=== PATIENT | male | born 1955 | race Caucasian/White ===

== ENCOUNTER 2019-03-24 06:11 | Emergency (ER) | payer MEDICARE, BC ==
[2019-03-24] MEDS ORDERED: Ondansetron 4 MG/2 ML SDV IVPUSH ONE (06:53)
[2019-03-24] MEDS ORDERED: Tamsulosin 0.4 MG Cap.ER PO STA (06:53)
[2019-03-24] MEDS ORDERED: HYDROmorphone 1 MG/ML Syringe IVPUSH STA (06:53)
[2019-03-24] MEDS ORDERED: Ketorolac 30 MG/ML SDV IVPUSH STA (06:54)
[2019-03-24] MEDS ORDERED: Sodium Chloride 0.9% 1,000 ML IV SCH (07:00)
--- NOTE | 2019-03-24 07:06 | EDM.PDOC ---
<Vik Jordan - Last Filed: 03/24/19 07:21> ED HPI GENERAL MEDICAL PROBLEM - General Chief Complaint: Back Pain or Injury Stated Complaint: BACK PAIN Time Seen by Provider: 03/24/19 06:43 Source of Information: Reports: Patient, RN Notes Reviewed History Limitations: Reports: No Limitations - History of Present Illness INITIAL COMMENTS - FREE TEXT/NARRATIVE: The patient states that he developed left flank pain last night, that has become more severe and persistent. He describes it as sharp in character. It waxes and wanes. He has not identified any modifiers. It does not radiate anywhere. No prior similar symptoms. The patient denies any urinary symptoms or gross hematuria. No recent fever, nausea, vomiting, constipation, or diarrhea. The patient's PCP is AVA Yepez. His Installation Superintendent is Dr. Lissett Qiu. His ENT is Dr. Deandre Oquendo. His Orthopedic Surgeon is Dr. Vargas Harrison. Left Lower Back Pain Score (Numeric/FACES): 10 - Related Data Allergies Allergy/AdvReac Type Severity Reaction Status Date / Time levofloxacin [From Levaquin] Allergy Other Verified 03/24/19 06:18 sulfamethoxazole Allergy Blisters Verified 03/24/19 06:18 [From Bactrim] trimethoprim [From Bactrim] Allergy Blisters Verified 03/24/19 06:18 Home Meds: Home Meds Albuterol Sulfate [Albuterol Sulfate Hfa] 2 puff INH DAILY PRN 03/24/19 [History ] Allopurinol [Zyloprim] 300 mg PO DAILY 03/24/19 [History] Cyclobenzaprine [Flexeril] 10 mg PO TID PRN #14 tab 03/24/19 [Rx] Fluticasone/Vilanterol [Breo Ellipta 200-25 MCG Inhalation Kit] 1 puff INH DAILY 03/24/19 [History] Furosemide 40 mg PO DAILY 03/24/19 [History] Losartan [Cozaar] 100 mg PO DAILY 03/24/19 [History] Metoprolol Tartrate 50 mg PO BID 03/24/19 [History] Montelukast [Singulair] 10 mg PO DAILY 03/24/19 [History] NIFEdipine [Nifedipine ER] 30 mg PO DAILY 03/24/19 [History] Rosuvastatin [Crestor] 10 mg PO DAILY 03/24/19 [History] predniSONE 20 mg PO DAILY PRN 03/24/19 [History] Past Medical History Cardiovascular History: Reports: High Cholesterol, Hypertension Respiratory History: Reports: Asthma Musculoskeletal History: Reports: Gout (suspected), Osteoarthritis Endocrine/Metabolic History: Reports: Obesity/BMI 30+ Oncologic (Cancer) History: Reports: Prostate (s/p radical prostatectomy, RTx) - Past Surgical History HEENT Surgical History: Reports: Naso-Sinus Surgery (x 3) GI Surgical History: Reports: Hernia, Inguinal (right) Male Surgical History: Reports: Prostatectomy Musculoskeletal Surgical History: Reports: Knee Replacement (bilateral) Social & Family History - Tobacco Use Smoking Status *Q: Former Smoker Years of Tobacco use: 20 Packs/Tins Daily: 0.5 Month/Year Tobacco Last Used: Quit 1988 - Caffeine Use Caffeine Use: Reports: Coffee - Alcohol Use Alcohol Use History: Yes Days Per Week of Alcohol Use: 7 Number of Drinks Per Day: 2 Total Drinks Per Week: 14 Alcohol Use Frequency: Daily - Recreational Drug Use Recreational Drug Use: No - Living Situation & Occupation Living situation: Reports: , with Spouse, with Family (Son) 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 ED EXAM, RENAL/ - Physical Exam Exam: See Below Exam Limited By: No Limitations General Appearance: Alert, WD/WN, Mild Distress (Intermittent severe pain) Eye Exam: Bilateral Eye: EOMI, Normal Inspection Ears: Normal External Exam, Hearing Grossly Normal Nose: Normal Inspection Throat/Mouth: Normal Inspection, Normal Lips, Normal Voice, No Airway Compromise Head: Atraumatic, Normocephalic Neck: Normal Inspection, Full Range of Motion Respiratory/Chest: No Respiratory Distress, Lungs Clear, Normal Breath Sounds, No Accessory Muscle Use Cardiovascular: Normal Peripheral Pulses, Regular Rate, Rhythm, No Gallop, No JVD, No Murmur, No Rub GI/Abdominal: Normal Bowel Sounds, Soft, Non-Tender (including the left abdomen) , No Organomegaly, No Distention, No Abnormal Bruit, No Mass, Other (Obese) (Male) Exam: Deferred Rectal (Males) Exam: Deferred Back Exam: Normal Inspection, Full Range of Motion, CVA Tenderness (L) ( reproduces pain). No: CVA Tenderness (R) Extremities: Normal Inspection, Normal Range of Motion, No Pedal Edema, Normal Capillary Refill Neurological: Alert, Oriented, Normal Cognition, No Motor/Sensory Deficits Psychiatric: Normal Affect Skin Exam: Warm, Dry, Intact, Normal Color, No Rash Course - Vital Signs Last Recorded V/S: Last Vital Signs Temp 96.8 F 03/24/19 06:24 Pulse 89 03/24/19 06:24 Resp 20 03/24/19 06:24 BP 148/85 H 03/24/19 06:24 Pulse Ox 98 03/24/19 06:24 - Orders/Labs/Meds Orders: Active Orders 24 hr Category Date Time Status Strain Urine [RC] ASDIRECTED Care 03/24/19 06:53 Active Sodium Chloride 0.9% [Normal Saline] 1,000 ml Med 03/24/19 07:00 Active IV ASDIRECTED Medication Orders Sodium Chloride (Normal Saline) 1,000 mls @ 150 mls/hr IV ASDIRECTED LIZETT Last Admin: 03/24/19 07:37 Dose: 150 mls/hr Labs: Laboratory Tests 03/24/19 Range/Units 07:05 Urine Color Yellow (Yellow) Urine Appearance Clear (Clear) Urine pH 7.0 (5.0-8.0) Ur Specific [place] 1.015 (1.005-1.030) Urine Protein Negative (Negative) Urine Glucose (UA) Negative (Negative) Urine Ketones Negative (Negative) Urine Occult Blood Negative (Negative) Urine Nitrite Negative (Negative) Urine Bilirubin Negative (Negative) Urine Urobilinogen 0.2 (0.2-1.0) Ur Leukocyte Esterase Negative (Negative) Urine RBC Not seen (0-5) /hpf Urine WBC 0-5 (0-5) /hpf Ur Squamous Epith Cells 0-5 (0-5) /hpf Urine Bacteria Rare (FEW) /hpf Urine Mucus Not seen (FEW) /hpf Meds: Medications Generic Name Dose Route Start Last Admin Trade Name Freq PRN Reason Stop Dose Admin Sodium Chloride 1,000 mls @ 150 mls/hr 03/24/19 07:00 03/24/19 07:37 Normal Saline IV 150 mls/hr ASDIRECTED LIZETT Administration Discontinued Medications Generic Name Dose Route Start Last Admin Trade Name Freq PRN Reason Stop Dose Admin Hydromorphone HCl 0.5 mg 03/24/19 06:53 03/24/19 07:32 Dilaudid IVPUSH 03/24/19 06:54 0.5 mg ONETIME STA Administration Ketorolac Tromethamine 30 mg 03/24/19 06:54 03/24/19 07:28 Toradol IVPUSH 03/24/19 06:55 Not Given ONETIME STA Ketorolac Tromethamine 30 mg 03/24/19 07:27 03/24/19 07:35 Toradol IVPUSH 03/24/19 07:28 30 mg ONETIME STA Administration Ondansetron HCl 4 mg 03/24/19 06:53 03/24/19 07:30 Zofran IVPUSH 03/24/19 06:54 4 mg ONETIME ONE Administration Tamsulosin HCl 0.4 mg 03/24/19 06:53 03/24/19 07:40 Flomax PO 03/24/19 06:54 0.4 mg ONETIME STA Administration - Re-Assessments/Exams Free Text/Narrative Re-Assessment/Exam: 03/24/19 06:58 By both history and physical examination, the patient is suffering from a left ureterolith. I have ordered a urinalysis and a CT scan of the abdomen and pelvis without contrast. All future urine will be strained. In the meantime, the patient will receive IV Dilaudid, IV Toradol, IV Zofran, oral Flomax, and IV fluid. 03/24/19 07:[address] Jose Serra, and care of the patient turned over to him at this time, for change of shift. Departure - Departure Disposition: Home, Self-Care 01 Clinical Impression: Back pain Qualifiers: Back pain location: low back pain Chronicity: acute Back pain laterality: left Sciatica presence: without sciatica Qualified Code(s): M54.5 - Low back pain - Discharge Information *PRESCRIPTION DRUG MONITORING PROGRAM REVIEWED*: Not Applicable *COPY OF PRESCRIPTION DRUG MONITORING REPORT IN PATIENT [place]: Not Applicable Prescriptions: Cyclobenzaprine [Flexeril] 10 mg PO TID PRN #14 tab PRN Reason: Pain Referrals: Hermila Cyr PA-C [Primary Care Provider] - Lissett Qiu MD [Ordering Only Provider] - Deandre Oquendo MD [Ordering Only Provider] - Vargas Harrison MD [Ordering Only Provider] - Forms: ED Department Discharge Additional Instructions: Rest back, no heavy lifting for now, alternate ice and heat as needed, you may alternate Tylenol and Advil or ibuprofen as needed, if you do start having further muscle type spasm pains you can take Flexeril 10 mg every 8-12 hours if needed. With your regular medical provider if having further difficulties that do not resolve, return to ED as needed if symptoms worsening in any way. <Sourav Serra - Last Filed: 03/24/19 09:30> Course - Re-Assessments/Exams Free Text/Narrative Re-Assessment/Exam: 03/24/19 09:27 Have assumed care from Dr. Jordan at change of shift. I agree with his history and exam as documented. Have radiology report now back on the renal focused CT which does not show any sign of obstructing stone or other acute pathology at this time. He is resting comfortably pain-free at this time. Urine was clear. Discharge instructions as documented. Departure - Departure Time of Disposition: 09:28 Condition: Fair
[2019-03-24] MEDS ORDERED: Ketorolac 60 MG/2 ML SDV IVPUSH STA (07:27)
--- NOTE | 2019-03-24 08:44 | CT ---
CT abdomen and pelvis Technique: Multiple axial sections were obtained from above the dome of the diaphragm inferiorly through the pubic symphysis. Intravenous and oral contrast not utilized. Study has been performed as a ureteral stone protocol. Findings: Nonobstructing calculi are noted within both kidneys. Two cystic lesions are seen within the right kidney. Largest cyst measures approximately 3.1 cm. No ureteral dilatation or ureteral stone is seen. Visualized lung bases show nothing acute. Liver shows diffuse fatty infiltration and is slightly generous in size. No focal abnormality is appreciated within the liver. Spleen appears normal in size. Adrenal glands show no nodule. Gallbladder contains no calcified gallstones. Pancreas is within normal limits. Aorta shows atherosclerotic calcification which continues into the iliac vessels. No aneurysm is seen. No retroperitoneal adenopathy or mesenteric abnormalities are seen. No pelvic mass or adenopathy is seen. Multiple surgical clips or radiation implant seeds are noted within the lower pelvis. Diverticuli are seen within the descending and sigmoid colon without inflammatory change of diverticulitis. No free fluid is seen. Appendix not visualized with certainty. Bone window settings were reviewed showing diffuse degenerative disc space narrowing and endplate spurring throughout the spine. Impression: 1. Fatty infiltration within the liver. Liver is also mildly prominent in size. 2. Nonobstructing renal calculi. Two cysts within the right kidney. 3. No ureteral dilatation or ureteral stone is seen. 4. Other incidental findings as noted above. Nothing acute is identified on noncontrast CT study of the abdomen and pelvis. Diagnostic code #3
== END 2019-03-24 09:50 | disposition home or self-care (01) ==
LOC: JD.ED 06:11
DX: M54.5 Low back pain (principal); I10 Essential (primary) hypertension; J45.909 Unspecified asthma, uncomplicated; E66.9 Obesity, unspecified; E78.00 Pure hypercholesterolemia, unspecified; Z88.1 Allergy status to other antibiotic agents; Z88.2 Allergy status to sulfonamides; Z79.899 Other long term (current) drug therapy; Z90.79 Acquired absence of other genital organ(s); Z96.653 Presence of artificial knee joint, bilateral; Z87.891 Personal history of nicotine dependence; Z68.39 Body mass index [BMI] 39.0-39.9, adult
CPT/HCPCS: 74176; 81001; 96361; 96374; 96375; 99284; A9270; J1170; J1885; J2405; J7040

== ENCOUNTER 2020-05-27 21:22 | Inpatient (IN) | payer MEDICARE, BC ==
[2020-05-27] MEDS ORDERED: Sodium Chloride 0.9% 10 ML Syringe FLUSH PRN (22:01)
[2020-05-27] MEDS ORDERED: Sodium Chloride 0.9% 1,000 ML IV SCH (22:15)
[2020-05-27] MEDS ORDERED: Lactated Ringers 1,000 ML IV ONE (22:32)
--- NOTE | 2020-05-27 22:54 | EDM.PDOC ---
<Dario Suarez - Last Filed: 05/28/20 00:19> ED HPI GENERAL MEDICAL PROBLEM - General Chief Complaint: Abdominal Pain Stated Complaint: RECTAL BLEEDING Time Seen by Provider: 05/27/20 21:39 - Related Data Allergies Allergy/AdvReac Type Severity Reaction Status Date / Time levofloxacin [From Levaquin] Allergy Other Verified 03/24/19 06:18 sulfamethoxazole Allergy Blisters Verified 03/24/19 06:18 [From Bactrim] trimethoprim [From Bactrim] Allergy Blisters Verified 03/24/19 06:18 Home Meds: Home Meds Albuterol Sulfate [Albuterol Sulfate Hfa] 2 puff INH DAILY PRN 03/24/19 [History] Fluticasone/Vilanterol [Breo Ellipta 200-25 MCG Inhalation Kit] 1 puff INH DAILY 03/24/19 [History] Furosemide 40 mg PO 1600 03/24/19 [History] Losartan [Cozaar] 100 mg PO DAILY 03/24/19 [History] Metoprolol Tartrate 50 mg PO BID 03/24/19 [History] Montelukast [Singulair] 10 mg PO BEDTIME 03/24/19 [History] NIFEdipine [Nifedipine ER] 30 mg PO BEDTIME 03/24/19 [History] Rosuvastatin [Crestor] 10 mg PO BEDTIME 03/24/19 [History] allopurinoL [Zyloprim] 300 mg PO DAILY 03/24/19 [History] Course - Re-Assessments/Exams Free Text/Narrative Re-Assessment/Exam: 05/28/20 00:17 Taking over for Jacque. The patient got up to go to use the commode on his own. He was advised not to do that and he passed out and hit his head. He had an abrasion to his forehead. His blood pressure was very low at 58. A second line was started and 2L of fluid was given. The patient's blood pressure is now 105. I ordered labs, CT of his head and abdomen and pelvis. I also typed and screened for 2 units. His Hgb was 12.3. His PT and PTT were negative. His CMP looks good. The CT of his head shows no acute intracranial abnormality. Changes of chronic paranasal sinus disease with postoperative changes within the paranasal sinuses. Right maxillary sinus and frontal sinus is nearly completely opacified. This is most likely chronic, however, acute on chronic paranasal sinus disease is a consideration. The CT of his abdomen and pelvis shows enlarged fatty liver. Nephrolithiasis without hydronephrosis or urinary tract obstruction. Several diverticula are present within the descending and sigmoid colon. There is minimal fat stranding in the region of the junction of the descending and sigmoid colon. In the appropriate clinical setting, very mild diverticulitis is possible. Status post prostatectomy with shotty retroperitoneal lymph noses noted. They do not meet pathologic size criteria, however attention on follow up suggested. They do appear to be slightly more prominent than the previous examination. I ordered flagyl and rocephin for the possible diverticulitis. I feel he needs to be admitted. I called Dr Alonzo and she agreed to the admission. She felt the diverticulitis was less likely given the CT results. I will write bridging orders. Departure - Departure Time of Disposition: 00:30 Disposition: Admitted As Inpatient 64 Condition: Fair Clinical Impression: Lower GI bleed - Discharge Information <Jacque Thorpe - Last Filed: 05/28/20 11:38> ED HPI GENERAL MEDICAL PROBLEM - General Source of Information: Reports: Patient History Limitations: Reports: No Limitations - History of Present Illness INITIAL COMMENTS - FREE TEXT/NARRATIVE: Patient is a 65-year-old male presenting to the emergency department with complaints of numerous episodes of samuel red bloody stool. Symptoms started around 7:30 PM this evening. Denies any abdominal pain, nausea, or vomiting associated with this. He estimates that he has had probably about 8 episodes of samuel red blood stool. He also complains of feeling intermittent lightheadedness which is what caused him to come to the emergency department. Patient states he does have a history of lower GI bleed, however it was not as significant as this. At that time he was admitted for hospitalization and there was suspected he had a bleeding diverticuli. Patient is not on blood thinners or Plavix. Denies any history of congestive heart failure. Denies any syncopal episodes. Patient states that he was COVID +2 weeks ago. Past Medical History Cardiovascular History: Reports: High Cholesterol, Hypertension Respiratory History: Reports: Asthma Musculoskeletal History: Reports: Gout, Osteoarthritis Endocrine/Metabolic History: Reports: Obesity/BMI 30+ Oncologic (Cancer) History: Reports: Prostate - Past Surgical History HEENT Surgical History: Reports: Naso-Sinus Surgery GI Surgical History: Reports: Hernia, Inguinal Male Surgical History: Reports: Prostatectomy Musculoskeletal Surgical History: Reports: Knee Replacement Other Musculoskeletal Surgeries/Procedures:: both knees Social & Family History - Tobacco Use Smoking Status *Q: Former Smoker Used Tobacco, but Quit: Yes Month/Year Tobacco Last Used: 30 yrs - Caffeine Use Caffeine Use: Reports: Coffee, Soda, Tea - Recreational Drug Use Recreational Drug Use: No - Living Situation & Occupation Living situation: Reports: , with Spouse, with Family (Son) 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 Denies: Fever, Chills HEENT: Reports: No Symptoms Respiratory: Reports: No Symptoms. Denies: Shortness of Breath, Cough Cardiovascular: Reports: Lightheadedness. Denies: Chest Pain, Syncope Endocrine: Reports: No Symptoms GI/Abdominal: Reports: Hematochezia. Denies: Abdominal Pain, Nausea, Vomiting : Reports: No Symptoms Musculoskeletal: Reports: No Symptoms Skin: Reports: No Symptoms Neurological: Reports: No Symptoms Psychiatric: Reports: No Symptoms Hematologic/Lymphatic: Reports: No Symptoms Immunologic: Reports: No Symptoms ED EXAM, GI/ABD - Physical Exam Exam: See Below Exam Limited By: No Limitations General Appearance: Alert, WD/WN, No Apparent Distress Respiratory/Chest: No Respiratory Distress, Lungs Clear, Normal Breath Sounds, No Accessory Muscle Use, Chest Non-Tender Cardiovascular: Normal Peripheral Pulses, Regular Rate, Rhythm, No Edema, No Gallop, No JVD, No Murmur, No Rub GI/Abdominal Exam: Soft, Non-Tender, No Organomegaly, No Distention, No Abnormal Bruit, No Mass, Pelvis Stable, Abnormal Bowel Sounds (hyperactive throughout) Neurological: Alert, Oriented, CN II-XII Intact, Normal Cognition, Normal Gait, Normal Reflexes, No Motor/Sensory Deficits Psychiatric: Normal Affect, Normal Mood Skin Exam: Warm, Dry, Intact, Pallor Course - Vital Signs Last Recorded V/S: Last Vital Signs Temp 98.1 F 05/28/20 08:03 Pulse 85 05/28/20 08:03 Resp 22 H 05/28/20 08:03 BP 111/64 05/28/20 08:03 Pulse Ox 96 05/28/20 08:03 - Orders/Labs/Meds Orders: Active Orders 24 hr Category Date Time Status CORONAVIRUS COVID-19 PCR PHL Routine Lab 05/28/20 01:00 Received RED BLOOD CELLS LP [BBK] Stat Lab 05/27/20 22:15 Results TYPE AND SCREEN [BBK] Stat Lab 05/27/20 22:15 Results Lactated Ringers [Ringers, Lactated] 1,000 ml Med 05/28/20 00:15 Active IV ASDIRECTED Sodium Chloride 0.9% [Saline Flush] Med 05/27/20 22:01 Active 10 ml FLUSH ASDIRECTED PRN Peripheral IV Insertion Adult [OM.PC] Stat Oth 05/27/20 22:01 Ordered Medication Orders Lactated Ringer's (Ringers, Lactated) 1,000 mls @ 100 mls/hr IV ASDIRECTED LIZETT Last Admin: 05/28/20 10:11 Dose: 100 mls/hr Documented by: Infusion: 05/28/20 10:09 Dose: 100 mls/hr Documented by: Admin: 05/28/20 00:09 Dose: 100 mls/hr Documented by: BAMBI Sodium Chloride (Saline Flush) 10 ml FLUSH ASDIRECTED PRN PRN Reason: Keep Vein Open Last Admin: 05/27/20 22:46 Dose: 10 ml Documented by: CHARITO Labs: Laboratory Tests 05/27/20 05/27/20 05/27/20 Range/Units 22:15 22:15 22:15 WBC 8.83 (4.23-9.07) K/mm3 RBC 4.10 L (4.63-6.08) M/mm3 Hgb 12.3 L D (13.7-17.5) gm/dl Hct 37.5 L (40.1-51.0) % MCV 91.5 (79.0-92.2) fl MCH 30.0 (25.7-32.2) pg MCHC 32.8 (32.2-35.5) g/dl RDW Std Deviation 47.8 H (35.1-43.9) fL Plt Count 250 (163-337) K/mm3 MPV 8.9 L (9.4-12.3) fl Neut % (Auto) 51.0 (34.0-67.9) % Lymph % (Auto) 28.9 (21.8-53.1) % [place] % (Auto) 17.8 H (5.3-12.2) % Eos % (Auto) 1.0 (0.8-7.0) Baso % (Auto) 1.0 (0.1-1.2) % Neut # (Auto) 4.50 (1.78-5.38) K/mm3 Lymph # (Auto) 2.55 (1.32-3.57) K/mm3 [place] # (Auto) 1.57 H (0.30-0.82) K/mm3 Eos # (Auto) 0.09 (0.04-0.54) K/mm3 Baso # (Auto) 0.09 H (0.01-0.08) K/mm3 Manual Slide Review Abnormal smear PT (9.7-11.7) SECONDS INR APTT (22-31) SECONDS Sodium 140 (136-145) mEq/L Potassium 3.9 (3.5-5.1) mEq/L Chloride 103 (98-107) mEq/L Carbon Dioxide 25 (21-32) mEq/L Anion Gap 15.9 H (5-15) BUN 18 (7-18) mg/dL Creatinine 1.1 (0.7-1.3) mg/dL Est Cr Clr Drug Dosing 65.17 mL/min Estimated GFR (MDRD) > 60 (>60) mL/min BUN/Creatinine Ratio 16.4 (14-18) Glucose 113 (80-115) mg/dL Calcium 8.5 (8.5-10.1) mg/dL Total Bilirubin 0.2 (0.2-1.0) mg/dL AST 28 (15-37) U/L ALT 50 (16-63) U/L Alkaline Phosphatase 66 (46-116) U/L C-Reactive Protein 0.7 (<1.0) mg/dL Total Protein 6.6 (6.4-8.2) g/dl Albumin 3.3 L (3.4-5.0) g/dl Globulin 3.3 gm/dL Albumin/Globulin Ratio 1.0 (1-2) SARS Virus RNA (PCR) (NEGATIVE) Blood Type O POSITIVE Gel Antibody Screen Negative Crossmatch See Detail 05/27/20 05/27/20 Range/Units 22:15 22:58 WBC (4.23-9.07) K/mm3 RBC (4.63-6.08) M/mm3 Hgb (13.7-17.5) gm/dl Hct (40.1-51.0) % MCV (79.0-92.2) fl MCH (25.7-32.2) pg MCHC (32.2-35.5) g/dl RDW Std Deviation (35.1-43.9) fL Plt Count (163-337) K/mm3 MPV (9.4-12.3) fl Neut % (Auto) (34.0-67.9) % Lymph % (Auto) (21.8-53.1) % [place] % (Auto) (5.3-12.2) % Eos % (Auto) (0.8-7.0) Baso % (Auto) (0.1-1.2) % Neut # (Auto) (1.78-5.38) K/mm3 Lymph # (Auto) (1.32-3.57) K/mm3 [place] # (Auto) (0.30-0.82) K/mm3 Eos # (Auto) (0.04-0.54) K/mm3 Baso # (Auto) (0.01-0.08) K/mm3 Manual Slide Review PT 10.3 (9.7-11.7) SECONDS INR 0.96 APTT 25 (22-31) SECONDS Sodium (136-145) mEq/L Potassium (3.5-5.1) mEq/L Chloride (98-107) mEq/L Carbon Dioxide (21-32) mEq/L Anion Gap (5-15) BUN (7-18) mg/dL Creatinine (0.7-1.3) mg/dL Est Cr Clr Drug Dosing mL/min Estimated GFR (MDRD) (>60) mL/min BUN/Creatinine Ratio (14-18) Glucose (80-115) mg/dL Calcium (8.5-10.1) mg/dL Total Bilirubin (0.2-1.0) mg/dL AST (15-37) U/L ALT (16-63) U/L Alkaline Phosphatase (46-116) U/L C-Reactive Protein (<1.0) mg/dL Total Protein (6.4-8.2) g/dl Albumin (3.4-5.0) g/dl Globulin gm/dL Albumin/Globulin Ratio (1-2) SARS Virus RNA (PCR) Presumptive pos (NEGATIVE) Blood Type Gel Antibody Screen Crossmatch Meds: Medications Generic Name Dose Route Start Last Admin Trade Name Pablo PRN Reason Stop Dose Admin Lactated Ringer's 1,000 mls @ 100 mls/hr 05/28/20 00:15 05/28/20 10:11 Ringers, Lactated IV 100 mls/hr ASDIRECTED LIZETT Administration Sodium Chloride 10 ml 05/27/20 22:01 05/27/20 22:46 Saline Flush FLUSH 10 ml ASDIRECTED PRN Administration Keep Vein Open Discontinued Medications Generic Name Dose Route Start Last Admin Trade Name Pablo PRN Reason Stop Dose Admin Sodium Chloride 1,000 mls @ 999 mls/hr 05/27/20 22:15 05/27/20 22:25 Normal Saline IV 999 mls/hr ASDIRECTED LIZETT Administration Lactated Ringer's 1,000 mls @ 999 mls/hr 05/27/20 22:32 05/27/20 22:45 Ringers, Lactated IV 05/27/20 23:32 999 mls/hr .BOLUS ONE Administration Metronidazole 500 mg/ Premix 100 mls @ 100 mls/hr 05/28/20 00:13 05/28/20 00:55 IV 05/28/20 01:12 100 mls/hr ONETIME ONE Administration Ceftriaxone Sodium 1 gm/ 100 mls @ 200 mls/hr 05/28/20 00:14 05/28/20 00:59 Sodium Chloride IV 05/28/20 00:43 200 mls/hr ONETIME ONE Administration Polyethylene Glycol/Electrolytes 4,000 ml 05/28/20 10:00 05/28/20 10:11 Golytely PO 05/28/20 10:01 4,000 ml ONETIME ONE Administration Sepsis Event Note (ED) - Evaluation Sepsis Screening Result: No Definite Risk - My Orders Last 24 Hours: My Active Orders 05/27/20 22:01 Sodium Chloride 0.9% [Saline Flush] 10 ml FLUSH ASDIRECTED PRN Peripheral IV Insertion Adult [OM.PC] Stat 05/27/20 22:15 RED BLOOD CELLS LP [BBK] Stat TYPE AND SCREEN [BBK] Stat 05/28/20 01:00 CORONAVIRUS COVID-19 PCR PHL Routine - Assessment/Plan Last 24 Hours: My Active Orders 05/27/20 22:01 Sodium Chloride 0.9% [Saline Flush] 10 ml FLUSH ASDIRECTED PRN Peripheral IV Insertion Adult [OM.PC] Stat 05/27/20 22:15 RED BLOOD CELLS LP [BBK] Stat TYPE AND SCREEN [BBK] Stat 05/28/20 01:00 CORONAVIRUS COVID-19 PCR PHL Routine
[2020-05-28] MEDS: Lactated Ringers 1,000 ML IV SCH ×3 (00:09→20:30)
[2020-05-28] MEDS ORDERED: metroNIDAZOLE/Normal Saline 500 MG in Premix Bag 1 BAG IV ONE (00:13)
[2020-05-28] MEDS ORDERED: cefTRIAXone 1 GM in Sodium Chloride 0.9% 100 ML IV ONE (00:14)
--- NOTE | 2020-05-28 07:10 | PCM.HP.2 ---
H&P History of Present Illness - General Date of Service: 05/28/20 Admit Problem/Dx: Admission Diagnosis/Problem Admission Diagnosis/Problem Diverticulitis - History of Present Illness Initial Comments - Free Text/Narative: This is a 65-year-old male with past medical history of hypertension, asthma and hemorrhoids who comes to the ED with history of bright red blood per rectum. As per patient he was in his usual state of health up to a week ago when he had constipation for 3 days, after which he had hard bowel movements and subsequent rectal pain and mild bleeding which resolved on its own. Yesterday he was fine up to around 7PM when he had the sudden urge to have a bowel movement and didn't make it to the restroom having a bowel movement described as partially solid but pure blood. He continued to have these, approximately 10 after which he decided to come to the ED for further evaluation. He has seen a physician for hemorrhoids prior to this and was prescribed Calmoseptine which he applied last week to relieve rectal pain. He denies any abdominal pain, nausea, vomiting, bloating, hematemesis or melena, shortness of breath, chest pain, palpitations. Prior colonoscopy for screening 12 years ago most likely negative as patient was told to get repeat study in 10 years. - Related Data Allergies/Adverse Reactions: Allergies Allergy/AdvReac Type Severity Reaction Status Date / Time levofloxacin [From Levaquin] Allergy Other Verified 03/24/19 06:18 sulfamethoxazole Allergy Blisters Verified 03/24/19 06:18 [From Bactrim] trimethoprim [From Bactrim] Allergy Blisters Verified 03/24/19 06:18 Home Medications: Home Meds Albuterol Sulfate [Albuterol Sulfate Hfa] 2 puff INH DAILY PRN 03/24/19 [Hist ory] Fluticasone/Vilanterol [Breo Ellipta 200-25 MCG Inhalation Kit] 1 puff INH DAILY 03/24/19 [History] Furosemide 40 mg PO 1600 03/24/19 [History] Losartan [Cozaar] 100 mg PO DAILY 03/24/19 [History] Metoprolol Tartrate 50 mg PO BID 03/24/19 [History] Montelukast [Singulair] 10 mg PO BEDTIME 03/24/19 [History] NIFEdipine [Nifedipine ER] 30 mg PO BEDTIME 03/24/19 [History] Rosuvastatin [Crestor] 10 mg PO BEDTIME 03/24/19 [History] allopurinoL [Zyloprim] 300 mg PO DAILY 03/24/19 [History] Past Medical History HEENT History: Reports: Other (See Below) Other HEENT History: Wears glasses got reading Cardiovascular History: Reports: High Cholesterol, Hypertension, SOB on Exertion Respiratory History: Reports: Asthma, Sleep Apnea Gastrointestinal History: Reports: Diverticulosis, GI Bleed, Hemorrhoids Genitourinary History: Reports: Urinary Incontinence Musculoskeletal History: Reports: Gout, Osteoarthritis Endocrine/Metabolic History: Reports: Obesity/BMI 30+ Oncologic (Cancer) History: Reports: Prostate, Other (See Below) Other Oncologic History: Skin - Infectious Disease History Infectious Disease History: Reports: Chicken Pox, Influenza, Measles, MRSA, Mumps - Past Surgical History HEENT Surgical History: Reports: Naso-Sinus Surgery, Other (See Below) Other HEENT Surgeries/Procedures: X3 Cardiovascular Surgical History: Reports: None Respiratory Surgical History: Reports: None GI Surgical History: Reports: Colonoscopy, Hernia, Inguinal Male Surgical History: Reports: Prostatectomy Endocrine Surgical History: Reports: None Musculoskeletal Surgical History: Reports: Carpal Tunnel, Knee Replacement, Shoulder Surgery Other Musculoskeletal Surgeries/Procedures:: btka, rotator cuff repair Oncologic Surgical History: Reports: None Social & Family History - Family History Family Medical History: Noncontributory - Tobacco Use Smoking Status *Q: Former Smoker Years of Tobacco use: 20 Used Tobacco, but Quit: Yes Month/Year Tobacco Last Used: 1989 Second Hand Smoke Exposure: No - Caffeine Use Caffeine Use: Reports: Coffee, Soda, Tea - Alcohol Use Days Per Week of Alcohol Use: 7 Number of Drinks Per Day: 3 Total Drinks Per Week: 21 Date of Last Drink: 05/26/20 Time of Last Drink: 19:00 - Recreational Drug Use Recreational Drug Use: No - Living Situation & Occupation Living situation: Reports: , with Spouse, with Family (Son) 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 Denies: Fever, Chills, Malaise, Night Sweats, Diaphoresis, Decreased Appetite, Weight Loss HEENT: Denies: Post Nasal Drip, Sinus Congestion, Sore Throat, Vertigo, Visual Changes Pulmonary: Denies: Shortness of Breath, Wheezing, Pleuritic Chest Pain, Cough, Sputum, Hemoptysis Cardiovascular: Reports: Syncope. Denies: Chest Pain, Palpitations, Dyspnea on Exertion, Orthopnea, PND, Edema, Lightheadedness Gastrointestinal: Reports: Bloody Stool, Constipation, Hematochezia, Stool Incontinence. Denies: Abdominal Pain, Anorexia, Black Stool, Diarrhea, Decreased Appetite, Difficulty Swallowing, Distension, Flatus, Hematemesis, Melena, Mucous in Stool, Nausea, Vomiting Genitourinary: Denies: Dysuria, Frequency, Burning, Pain, Urgency, Incontinence Musculoskeletal: Denies: Joint Pain, Joint Swelling, Muscle Pain, Muscle Stiffness Skin: Reports: Pallor. Denies: Cyanosis, Jaundice, Mottled, Diaphoresis Psychiatric: Denies: Depression, Mood Lability, Anxiety Neurological: Denies: Dizziness, Headache, Numbness, Paresthesia Exam - Exam Exam: See Below - Vital Signs Vital Signs: Last Vital Signs Temp 98.1 F 05/28/20 02:19 Pulse 99 05/28/20 02:19 Resp 20 05/28/20 02:19 BP 105/59 L 05/28/20 02:19 Pulse Ox 96 05/28/20 02:19 Weight: 119.93 kg - Exam Quality Assessment: Other (CONFOUNDED BY BODY HABITUS) General: Alert, Oriented, Cooperative. No: Mild Distress HEENT: Conjunctiva Clear, Mucosa Moist & [place] Neck: Supple. No: Lymphadenopathy Lungs: Clear to Auscultation, Normal Respiratory Effort, Decreased Breath Sounds, Wheezing. No: Crackles, Rales, Rhonchi, Rub, Stridor Cardiovascular: Regular Rate, Regular Rhythm. No: Systolic Murmur, Diastolic Murmur, Rubs, Gallop/S3, Gallop/S4 GI/Abdominal Exam: Normal Bowel Sounds, Soft, Non-Tender, Distended. No: Guarding, Rigid, Rebound Extremities: Normal Inspection, Normal Range of Motion, Non-Tender, Pedal Edema (2+ pitting up to knees bilaterally), Slow Capillary Refill Peripheral Pulses: 1+: Radial (L), Radial (R), Dorsalis Pedis (L), Dorsalis Pe dis (R) Skin: Dry, Cool Neuro Extensive - Mental Status: Alert, Oriented x3, Normal Mood/Affect, Normal Cognition, Memory Intact Psychiatric: Normal Affect, Normal Mood - Patient Data Result Diagrams: 05/28/20 10:43 05/27/20 22:15 Sepsis Event Note - Evaluation Sepsis Screening Result: No Definite Risk - Problem List (1) Lower GI bleed SNOMED Code(s): 34658613 ICD Code: K92.2 - GASTROINTESTINAL HEMORRHAGE, UNSPECIFIED Status: Acute Current Visit: Yes (2) Hypotension due to blood loss SNOMED Code(s): 68392188 ICD Code: I95.89 - OTHER HYPOTENSION Status: Acute Current Visit: Yes (3) Acute posthemorrhagic anemia SNOMED Code(s): 944318364 ICD Code: D62 - ACUTE POSTHEMORRHAGIC ANEMIA Status: Acute Current Visit: Yes (4) Tachycardia SNOMED Code(s): 4574232 ICD Code: R00.0 - TACHYCARDIA, UNSPECIFIED Status: Acute Current Visit: Yes (5) Hypertension SNOMED Code(s): 07767713 ICD Code: I10 - ESSENTIAL (PRIMARY) HYPERTENSION Status: Acute Current Visit: Yes (6) Intermittent asthma without complication SNOMED Code(s): 405509629 ICD Code: J45.20 - MILD INTERMITTENT ASTHMA, UNCOMPLICATED Status: Acute Current Visit: Yes (7) Dyslipidemia SNOMED Code(s): 528140143 ICD Code: E78.5 - HYPERLIPIDEMIA, UNSPECIFIED Status: Acute Current Visit: Yes (8) Obstructive sleep apnea SNOMED Code(s): 80060290 ICD Code: G47.33 - OBSTRUCTIVE SLEEP APNEA (ADULT) (PEDIATRIC) Status: Acute Current Visit: Yes (9) Hemorrhoids SNOMED Code(s): 09770564 ICD Code: K64.9 - UNSPECIFIED HEMORRHOIDS Status: Acute Current Visit: Yes (10) H/O prostate cancer SNOMED Code(s): 682083611 ICD Code: Z85.46 - PERSONAL HISTORY OF MALIGNANT NEOPLASM OF PROSTATE Status: Acute Current Visit: Yes (11) Former cigarette smoker SNOMED Code(s): 001074021 ICD Code: Z87.891 - PERSONAL HISTORY OF NICOTINE DEPENDENCE Status: Acute Current Visit: Yes (12) H/O alcohol abuse SNOMED Code(s): 293053475 ICD Code: F10.11 - ALCOHOL ABUSE, IN REMISSION Status: Acute Current Visit: Yes (13) Syncope SNOMED Code(s): 227654573 ICD Code: R55 - SYNCOPE AND COLLAPSE Status: Acute Current Visit: Yes (14) Hypoalbuminemia SNOMED Code(s): 681988924 ICD Code: E88.09 - OTH DISORDERS OF PLASMA-PROTEIN METABOLISM, NEC Status: Acute Current Visit: Yes (15) COVID-19 virus RNA test result equivocal SNOMED Code(s): 277697412, 45734148, 526112530, 032620331, 596726067 ICD Code: Z20.828 - CONTACT W AND EXPOSURE TO OTH VIRAL COMMUNICABLE DISEASES Status: Acute Current Visit: Yes (16) Dependent edema SNOMED Code(s): 660567974 ICD Code: R60.9 - EDEMA, UNSPECIFIED Status: Acute Current Visit: Yes (17) Gout SNOMED Code(s): 08541552 ICD Code: M10.9 - GOUT, UNSPECIFIED Status: Acute Current Visit: Yes Problem List Initiated/Reviewed/Updated: Yes Assessment/Plan Comment:: Acute lower GI bleed Hypotension, tachycardia and anemia due to blood loss 10 bloody bowel movements prior to consultation - Prior hemorrhoid diagnosis with recent constipation 1 week ago and subsequent mild rectal bleeding x 2-3 days that resolved on its own Overnight had 6 more episodes Current Hb 10, down from 12.[address] abdomen with incidental diverticuli without signs of infection PLAN - Trend hemoglobin every 4 hours on pediatric tubes - Goal Hb >8 - Calmoseptine for rectal pain - Surgery consult - Colon prep for colonoscopy, 50% now and the rest after 7PM - NPO for now - IV repletion with LR for now - PRN Zofran IV COVID-19 positive 3 weeks ago COVID-19 virus RNA test result equivocal Tested positive on 04/24/20 - Didn't receive any treatment - Completed quarantine - Was symptomatic for about 2.5 weeks - Repeat test yesterday reported as "presumptive positive" No current respiratory symptoms PLAN - Repeat COVID sent out F/U result - Maximum isolation precautions pending new result Intermittent asthma without complications Prior smoker On daily Breo and PRN albuterol at home - No prior exacerbations or intubations - Audible wheezing throughout Smoked for 20 years - Quit 1989 PLAN - Continue home Breo-Ellipta - Continue Albuterol q4h PRN - O2 supplementation as needed for goal O2 > 88% Hypertension Hypotensive on admission 95/54 (67) - Had a syncopal episode in ED and hit his head CT head negative for acute findings PLAN - Hold home Losartan and Metoprolol for now Dyslipidemia No acute issues PLAN - Continue Rosuvastatin once PO - New lipid panel Dependent edema On daily furosemide Has acute volume depletion PLAN - Hold furosemide for now H/O prostate cancer >5 years ago s/p total resection Subsequent PSA elevation that required radiation Full remission as per oncology PLAN - Monitor for urinary retention Daily alcohol use Has 3 drinks every day Last drink 05/26/20 PLAN - CIWA protocol - IV thiamine Obstructive sleep apnea Not on home CPAP PLAN - Monitor O2 and CO2 levels Hypoalbuminemia Decreased appetite for about a month, since COVID diagnosis PLAN - Dietary consult and follow up - Prealbumin and vitamin levels Gout No recent attacks On home allopurinol PLAN - Hold allopurinol for now - Uric acid level PROPHYLAXIS DVT- Lovenox GI- not indicated CODE STATUS: FULL CODE DISPOSITION: Patient will be admitted for monitorization of blood loss by trending hemoglobin on full isolation until COVID status is confirmed. Surgery has been consulted and are pending to evaluate patient. SOCIAL: Lives with in [place] Previous smoker, quit 1989 Current daily drinker, 3/day Last drink 05/26 - Mortality Measure Prognosis:: Good
--- NOTE | 2020-05-28 07:36 | CT ---
CT abdomen and pelvis Technique: Multiple axial sections were obtained from above the dome of the diaphragm inferiorly through the pubic symphysis. Intravenous contrast was utilized. No oral contrast has been given. Delayed images were obtained through the bladder. Comparison: Previous CT abdomen and pelvis study of 03/24/19. Findings: Slight extrapleural fat seen posteriorly within both lung bases. Liver is enlarged with evidence of fatty infiltration. Spleen appears within normal limits. Adrenal glands show no nodule. Pancreas shows no discrete abnormality. Kidneys show symmetric contrast enhancement. Cyst is noted within the right kidney measuring 3.5 cm. Several retroperitoneal lymph nodes are seen believed to be stable. Aorta shows atherosclerotic change without aneurysm. Pancreas shows no discrete abnormality. No mesenteric abnormalities are seen. Diverticuli are seen within the sigmoid colon. Surgical clips are seen from prior prostatectomy. Delayed images shows contrast within the distal ureters and bladder. Appendix believed to be seen and is normal in size. Bone window settings were reviewed which shows diffuse degenerative change within the spine. Impression: 1. Prior prostatectomy. 2. Several scattered retroperitoneal lymph nodes believed to be stable. 3. Other findings as noted above which are chronic. Nothing acute is appreciated. Diagnostic code #3 Mostly agree with preliminary report issued by [facility], I do not appreciate any definite diverticulitis, ([facility] preliminary report dictated on 05/28/20, 12:58 AM Central Daylight Time), code #2 Study was dictated in MDT
--- NOTE | 2020-05-28 07:36 | CT ---
Head CT Technique: Multiple axial sections through the brain were obtained. Intravenous contrast was utilized. Comparison: Previous head CT study of 11/05/13. Findings: Ventricles along with basal cisterns and sulci over convexities are mildly prominent. No abnormal parenchymal densities are seen. No evidence of intracranial hemorrhage. No midline shift or mass effect is seen. Bone window settings show no acute calvarial abnormality. Previous maxillary sinus surgery is noted. Moderate mucosal thickening is noted within the right maxillary sinus. Mild mucosal thickening is seen within the ethmoid and sphenoid sinuses. Opacified left side of the frontal sinus is seen. Impression: 1. Sinus findings believed to be chronic. 2. No acute intracranial abnormality is appreciated. Diagnostic code #2 I agree with preliminary report issued by [facility] ([facility] preliminary report dictated on 05/28/20, 1 AM Central Daylight Time) Study was dictated in MDT
[2020-05-28] MEDS ORDERED: Polyethylene Glycol/Electrolytes 4,000 ML Bottle PO ONE (10:00)
--- NOTE | 2020-05-28 13:15 | PCM.CONS ---
H&P History of Present Illness - General Date of Service: 05/28/20 Admit Problem/Dx: Admission Diagnosis/Problem Admission Diagnosis/Problem Diverticulitis Source of Information: Patient History Limitations: Reports: No Limitations - History of Present Illness Initial Comments - Free Text/Narative: Patient has several episodes of bright red blood per rectum starting 2 days ago. This has never happened to him. No abdominal pain. He has hemorrhoids that have not bled. Hematochezia did not start with BM. Has diverticulosis. Not on any blood thinners. Lat scope was 12 yrs ago and reportedly normal. He presented to the ED yesterday and had several bloody BMs and had a syncopal episode. Had 2 more bloody BM, after admission, last one 6am today. His Hgb was 12.4 on admissi on and has remained around 10 since. No other bloody BMs since 6am. He has asthma and HTN that is controlled with meds. He contracted COVID-19 on 04/24/2020 but has now recovered, ie no symptoms. Onset of Symptoms: Reports: Sudden Duration of Symptoms: Reports: Day(s): (2) Location: Reports: Other Quality: Reports: Other Improves with: Reports: None Worsens with: Reports: None - Related Data Allergies/Adverse Reactions: Allergies Allergy/AdvReac Type Severity Reaction Status Date / Time levofloxacin [From Levaquin] Allergy Other Verified 03/24/19 06:18 sulfamethoxazole Allergy Blisters Verified 03/24/19 06:18 [From Bactrim] trimethoprim [From Bactrim] Allergy Blisters Verified 03/24/19 06:18 Home Medications: Home Meds Albuterol Sulfate [Albuterol Sulfate Hfa] 2 puff INH DAILY PRN 03/24/19 [History] Fluticasone/Vilanterol [Breo Ellipta 200-25 MCG Inhalation Kit] 1 puff INH DAILY 03/24/19 [History] Furosemide 40 mg PO 1600 03/24/19 [History] Losartan [Cozaar] 100 mg PO DAILY 03/24/19 [History] Metoprolol Tartrate 50 mg PO BID 03/24/19 [History] Montelukast [Singulair] 10 mg PO BEDTIME 03/24/19 [History] NIFEdipine [Nifedipine ER] 30 mg PO BEDTIME 03/24/19 [History] Rosuvastatin [Crestor] 10 mg PO BEDTIME 03/24/19 [History] allopurinoL [Zyloprim] 300 mg PO DAILY 03/24/19 [History] Past Medical History HEENT History: Reports: Other (See Below) Other HEENT History: Wears glasses got reading Cardiovascular History: Reports: High Cholesterol, Hypertension Respiratory History: Reports: Asthma Gastrointestinal History: Reports: Diverticulosis, GI Bleed, Hemorrhoids Genitourinary History: Reports: Urinary Incontinence Musculoskeletal History: Reports: Gout, Osteoarthritis Endocrine/Metabolic History: Reports: Obesity/BMI 30+ Oncologic (Cancer) History: Reports: Prostate Other Oncologic History: Skin - Infectious Disease History Infectious Disease History: Reports: Chicken Pox, Influenza, Measles, MRSA, Mumps - Past Surgical History HEENT Surgical History: Reports: Naso-Sinus Surgery GI Surgical History: Reports: Hernia, Inguinal Male Surgical History: Reports: Prostatectomy Musculoskeletal Surgical History: Reports: Knee Replacement Other Musculoskeletal Surgeries/Procedures:: both knees Social & Family History - Family History Family Medical History: Noncontributory - Tobacco Use Smoking Status *Q: Former Smoker Years of Tobacco use: 20 Used Tobacco, but Quit: Yes Month/Year Tobacco Last Used: 30 yrs Second Hand Smoke Exposure: No - Caffeine Use Caffeine Use: Reports: Coffee, Soda, Tea - Alcohol Use Days Per Week of Alcohol Use: 7 Number of Drinks Per Day: 3 Total Drinks Per Week: 21 Date of Last Drink: 05/26/20 Time of Last Drink: 19:00 - Recreational Drug Use Recreational Drug Use: No - Living Situation & Occupation Living situation: Reports: , with Spouse, with Family (Son) 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) H&P Review of Systems - Review of Systems: Review Of Systems: See Below General: Reports: No Symptoms HEENT: Reports: No Symptoms Pulmonary: Reports: No Symptoms Cardiovascular: Reports: No Symptoms Gastrointestinal: Reports: Hematochezia Genitourinary: Reports: No Symptoms Musculoskeletal: Reports: No Symptoms Skin: Reports: No Symptoms Psychiatric: Reports: No Symptoms Neurological: Reports: No Symptoms Hematologic/Lymphatic: Reports: No Symptoms Exam - Exam Exam: See Below - Vital Signs Vital Signs: Last Vital Signs Temp 98.1 F 05/28/20 08:03 Pulse 85 05/28/20 08:03 Resp 22 H 05/28/20 08:03 BP 111/64 09/05/20 08:03 Pulse Ox 96 05/28/20 08:03 Weight: 119.93 kg - Exam General: Alert, Oriented, Cooperative Lungs: Clear to Auscultation, Normal Respiratory Effort Cardiovascular: Regular Rate, Regular Rhythm, Normal S1, Normal S2 GI/Abdominal Exam: Soft, Non-Tender, No Organomegaly, No Distention, No Abnormal Bruit - Patient Data Lab Results Last 24 hrs: Laboratory Results - last 24 hr 05/27/20 05/27/20 05/27/20 Range/Units 22:15 22:15 22:15 WBC 8.83 (4.23-9.07) K/mm3 RBC 4.10 L (4.63-6.08) M/mm3 Hgb 12.3 L D (13.7-17.5) gm/dl Hct 37.5 L (40.1-51.0) % MCV 91.5 (79.0-92.2) fl MCH 30.0 (25.7-32.2) pg MCHC 32.8 (32.2-35.5) g/dl RDW Std Deviation 47.8 H (35.1-43.9) fL Plt Count 250 (163-337) K/mm3 MPV 8.9 L (9.4-12.3) fl Neut % (Auto) 51.0 (34.0-67.9) % Lymph % (Auto) 28.9 (21.8-53.1) % [place] % (Auto) 17.8 H (5.3-12.2) % Eos % (Auto) 1.0 (0.8-7.0) Baso % (Auto) 1.0 (0.1-1.2) % Neut # (Auto) 4.50 (1.78-5.38) K/mm3 Lymph # (Auto) 2.55 (1.32-3.57) K/mm3 [place] # (Auto) 1.57 H (0.30-0.82) K/mm3 Eos # (Auto) 0.09 (0.04-0.54) K/mm3 Baso # (Auto) 0.09 H (0.01-0.08) K/mm3 Manual Slide Review Abnormal smear PT (9.7-11.7) SECONDS INR APTT (22-31) SECONDS Sodium 140 (136-145) mEq/L Potassium 3.9 (3.5-5.1) mEq/L Chloride 103 (98-107) mEq/L Carbon Dioxide 25 (21-32) mEq/L Anion Gap 15.9 H (5-15) BUN 18 (7-18) mg/dL Creatinine 1.1 (0.7-1.3) mg/dL Est Cr Clr Drug Dosing 65.17 mL/min Estimated GFR (MDRD) > 60 (>60) mL/min BUN/Creatinine Ratio 16.4 (14-18) Glucose 113 (80-115) mg/dL Calcium 8.5 (8.5-10.1) mg/dL Total Bilirubin 0.2 (0.2-1.0) mg/dL AST 28 (15-37) U/L ALT 50 (16-63) U/L Alkaline Phosphatase 66 (46-116) U/L C-Reactive Protein 0.7 (<1.0) mg/dL Total Protein 6.6 (6.4-8.2) g/dl Albumin 3.3 L (3.4-5.0) g/dl Globulin 3.3 gm/dL Albumin/Globulin Ratio 1.0 (1-2) SARS Virus RNA (PCR) (NEGATIVE) Blood Type O POSITIVE Gel Antibody Screen Negative Crossmatch See Detail 05/27/20 05/27/20 05/28/20 Range/Units 22:15 22:58 02:30 WBC (4.23-9.07) K/mm3 RBC (4.63-6.08) M/mm3 Hgb 10.7 L D (13.7-17.5) gm/dl Hct 33.4 L (40.1-51.0) % MCV (79.0-92.2) fl MCH (25.7-32.2) pg MCHC (32.2-35.5) g/dl RDW Std Deviation (35.1-43.9) fL Plt Count (163-337) K/mm3 MPV (9.4-12.3) fl Neut % (Auto) (34.0-67.9) % Lymph % (Auto) (21.8-53.1) % [place] % (Auto) (5.3-12.2) % Eos % (Auto) (0.8-7.0) Baso % (Auto) (0.1-1.2) % Neut # (Auto) (1.78-5.38) K/mm3 Lymph # (Auto) (1.32-3.57) K/mm3 [place] # (Auto) (0.30-0.82) K/mm3 Eos # (Auto) (0.04-0.54) K/mm3 Baso # (Auto) (0.01-0.08) K/mm3 Manual Slide Review PT 10.3 (9.7-11.7) SECONDS INR 0.96 APTT 25 (22-31) SECONDS Sodium (136-145) mEq/L Potassium (3.5-5.1) mEq/L Chloride (98-107) mEq/L Carbon Dioxide (21-32) mEq/L Anion Gap (5-15) BUN (7-18) mg/dL Creatinine (0.7-1.3) mg/dL Est Cr Clr Drug Dosing mL/min Estimated GFR (MDRD) (>60) mL/min BUN/Creatinine Ratio (14-18) Glucose (80-115) mg/dL Calcium (8.5-10.1) mg/dL Total Bilirubin (0.2-1.0) mg/dL AST (15-37) U/L ALT (16-63) U/L Alkaline Phosphatase (46-116) U/L C-Reactive Protein (<1.0) mg/dL Total Protein (6.4-8.2) g/dl Albumin (3.4-5.0) g/dl Globulin gm/dL Albumin/Globulin Ratio (1-2) SARS Virus RNA (PCR) Presumptive pos (NEGATIVE) Blood Type Gel Antibody Screen Crossmatch 05/28/20 05/28/20 Range/Units 05:07 10:43 WBC (4.23-9.07) K/mm3 RBC (4.63-6.08) M/mm3 Hgb 10.0 L 10.2 L (13.7-17.5) gm/dl Hct 31.2 L 31.6 L (40.1-51.0) % MCV (79.0-92.2) fl MCH (25.7-32.2) pg MCHC (32.2-35.5) g/dl RDW Std Deviation (35.1-43.9) fL Plt Count (163-337) K/mm3 MPV (9.4-12.3) fl Neut % (Auto) (34.0-67.9) % Lymph % (Auto) (21.8-53.1) % [place] % (Auto) (5.3-12.2) % Eos % (Auto) (0.8-7.0) Baso % (Auto) (0.1-1.2) % Neut # (Auto) (1.78-5.38) K/mm3 Lymph # (Auto) (1.32-3.57) K/mm3 [place] # (Auto) (0.30-0.82) K/mm3 Eos # (Auto) (0.04-0.54) K/mm3 Baso # (Auto) (0.01-0.08) K/mm3 Manual Slide Review PT (9.7-11.7) SECONDS INR APTT (22-31) SECONDS Sodium (136-145) mEq/L Potassium (3.5-5.1) mEq/L Chloride (98-107) mEq/L Carbon Dioxide (21-32) mEq/L Anion Gap (5-15) BUN (7-18) mg/dL Creatinine (0.7-1.3) mg/dL Est Cr Clr Drug Dosing mL/min Estimated GFR (MDRD) (>60) mL/min BUN/Creatinine Ratio (14-18) Glucose (80-115) mg/dL Calcium (8.5-10.1) mg/dL Total Bilirubin (0.2-1.0) mg/dL AST (15-37) U/L ALT (16-63) U/L Alkaline Phosphatase (46-116) U/L C-Reactive Protein (<1.0) mg/dL Total Protein (6.4-8.2) g/dl Albumin (3.4-5.0) g/dl Globulin gm/dL Albumin/Globulin Ratio (1-2) SARS Virus RNA (PCR) (NEGATIVE) Blood Type Gel Antibody Screen Crossmatch Result Diagrams: 05/28/20 10:43 05/27/20 22:15 Sepsis Event Note - Evaluation Sepsis Screening Result: No Definite Risk - Focused Exam Vital Signs: Vital Signs Temp Pulse Resp BP Pulse Ox 05/28/20 08:03 98.1 F 85 22 H 111/64 96 05/28/20 02:19 98.1 F 99 20 105/59 L 96 Consult PN Assessment/Plan Procedures: Procedures ANTINUCLEAR ANTIBODIES (03/22/15) ASSAY OF BLOOD/URIC ACID (04/07/20) ASSAY OF CK (CPK) (01/31/18) ASSAY OF IGE (01/31/18) ASSAY OF NATRIURETIC PEPTIDE (04/07/20) ASSAY OF TROPONIN QUANT (09/04/17) ASSAY THYROID STIM HORMONE (04/07/20) C-REACTIVE PROTEIN (07/29/18) CHEST X-RAY 2VW FRONTAL&LATL (09/04/17) COMPLETE CBC AUTOMATED (04/07/20) COMPLETE CBC W/AUTO DIFF WBC (01/31/18) COMPREHEN METABOLIC PANEL (04/07/20) CT ABD & PELVIS W/O CONTRAST (03/24/19) CULTURE OTHR SPECIMN AEROBIC (08/30/15) EMERGENCY DEPT VISIT (03/24/19) EXTREMITY STUDY (10/31/16) GLYCOSYLATED HEMOGLOBIN TEST (08/30/16) HYDRATE IV INFUSION ADD-ON (03/24/19) LIPID PANEL (09/03/19) METABOLIC PANEL TOTAL CA (11/27/16) MICROBE SUSCEPTIBLE DIFFUSE (08/30/15) MICROBE SUSCEPTIBLE DISK (08/30/15) MR-STAPH DNA AMP PROBE (09/06/16) OFFICE/OUTPATIENT VISIT EST (05/02/20) PROTHROMBIN TIME (07/28/18) RHEUMATOID FACTOR TEST QUAL (03/22/15) ROUTINE VENIPUNCTURE (01/25/17) THER/PROPH/DIAG INJ IV PUSH (03/24/19) TISSUE EXAM BY PATHOLOGIST (11/27/16) TTE W/DOPPLER COMPLETE (08/30/16) TX/PRO/DX INJ NEW DRUG ADDON (03/24/19) URINALYSIS AUTO W/O SCOPE (05/02/20) URINALYSIS AUTO W/SCOPE (03/24/19) URINE CULTURE/COLONY COUNT (08/30/16) X-RAY EXAM CHEST 2 VIEWS (12/19/18) X-RAY EXAM OF HAND (04/29/19) X-RAY EXAM OF WRIST (04/29/19) Problem List Initiated/Reviewed/Updated: No Plan: Patient has GI bleeding, likely lower. I recommended we proceed with EGD/Colonoscopy, possible hemorrhoid banding. We discussed risks, benefits and alternatives. Informed consent was signed. We will plan for the procedures tomorrow.
[2020-05-28 15:33] LABS: HEMOGLOBIN A1C 5.9 % (4.50-6.20)
[2020-05-28] MEDS ORDERED: Albuterol 6.7 GM Inhaler INH PRN (17:17)
[2020-05-28] MEDS ORDERED: hydrALAZINE 20 MG/ML SDV IVPUSH PRN (17:20)
[2020-05-28] MEDS: Furosemide 40 MG Tab PO SCH (18:46)
[2020-05-28] MEDS ORDERED: Rosuvastatin 10 MG Tab PO SCH (21:00)
[2020-05-29] MEDS: Lactated Ringers 1,000 ML IV SCH (08:42)
[2020-05-29] MEDS ORDERED: Formoterol/Mometasone 200-5 MCG 8.8 GM Inhaler IH SCH (09:00)
[2020-05-29] MEDS ORDERED: fentaNYL 100 MCG/2 ML SDV ONE (09:19)
[2020-05-29] MEDS ORDERED: Midazolam 1 MG/ML 2 ML SDV ONE (09:19)
[2020-05-29] MEDS ORDERED: Propofol 200 MG/20 ML SDV ONE ×4 (09:19→10:44)
[2020-05-29] MEDS ORDERED: Lidocaine 1% 2 ML SDV ONE (09:19)
--- NOTE | 2020-05-29 09:37 | PCM.PREANE ---
Preanesthetic Assessment - Procedure Proposed Procedure: EGD/Colonoscopy - Anesthesia/Transfusion/Family Hx Anesthesia History: Prior Anesthesia Without Reaction Family History of Anesthesia Reaction: No Transfusion History: No Prior Transfusion(s) - Review of Systems General: Fatigue Pulmonary: Shortness of Breath, Wheezing Cardiovascular: Dyspnea on Exertion Gastrointestinal: No Symptoms Neurological: Numbness (fingers) Other: Reports: Neck Pain - Physical Assessment NPO Status Date: 05/28/20 NPO Status Time: 00:00 Vital Signs: Last Vital Signs Temp 36.9 C 05/29/20 05:49 Pulse 88 05/29/20 05:49 Resp 12 05/29/20 05:49 BP 137/76 05/29/20 05:49 Pulse Ox 95 05/29/20 08:17 Height: 1.75 m Weight: 119.522 kg ASA Class: 3 Mental Status: Alert & Oriented x3 Airway Class: Mallampati = 1 Dentition: Reports: Niland(s) Thyro-Mental Finger Breadths: 2 Mouth Opening Finger Breadths: 3 ROM/Head Extension: Limited/Partial Lungs: Clear to Auscultation, Normal Respiratory Effort Cardiovascular: Regular Rate, Regular Rhythm - Lab Values: Laboratory Last Values WBC 8.83 K/mm3 (4.23-9.07) 05/27/20 22:15 RBC 4.10 M/mm3 (4.63-6.08) L 05/27/20 22:15 Hgb 10.0 gm/dl (13.7-17.5) L 05/28/20 22:26 Hct 31.3 % (40.1-51.0) L 05/28/20 22:26 MCV 91.5 fl (79.0-92.2) 05/27/20 22:15 MCH 30.0 pg (25.7-32.2) 05/27/20 22:15 MCHC 32.8 g/dl (32.2-35.5) 05/27/20 22:15 RDW Std Deviation 47.8 fL (35.1-43.9) H 05/27/20 22:15 Plt Count 250 K/mm3 (163-337) 05/27/20 22:15 MPV 8.9 fl (9.4-12.3) L 05/27/20 22:15 Neut % (Auto) 51.0 % (34.0-67.9) 05/27/20 22:15 Lymph % (Auto) 28.9 % (21.8-53.1) 05/27/20 22:15 [place] % (Auto) 17.8 % (5.3-12.2) H 05/27/20 22:15 Eos % (Auto) 1.0 (0.8-7.0) 05/27/20 22:15 Baso % (Auto) 1.0 % (0.1-1.2) 05/27/20 22:15 Neut # (Auto) 4.50 K/mm3 (1.78-5.38) 05/27/20 22:15 Lymph # (Auto) 2.55 K/mm3 (1.32-3.57) 05/27/20 22:15 [place] # (Auto) 1.57 K/mm3 (0.30-0.82) H 05/27/20 22:15 Eos # (Auto) 0.09 K/mm3 (0.04-0.54) 05/27/20 22:15 Baso # (Auto) 0.09 K/mm3 (0.01-0.08) H 05/27/20 22:15 Manual Slide Review Abnormal smear 05/27/20 22:15 Percent Retic 2.05 % (0.51-1.81) H 05/28/20 14:52 PT 10.3 SECONDS (9.7-11.7) 05/27/20 22:15 INR 0.96 05/27/20 22:15 APTT 25 SECONDS (22-31) 05/27/20 22:15 Sodium 140 mEq/L (136-145) 05/27/20 22:15 Potassium 3.9 mEq/L (3.5-5.1) 05/27/20 22:15 Chloride 103 mEq/L (98-107) 05/27/20 22:15 Carbon Dioxide 25 mEq/L (21-32) 05/27/20 22:15 Anion Gap 15.9 (5-15) H 05/27/20 22:15 BUN 18 mg/dL (7-18) 05/27/20 22:15 Creatinine 1.1 mg/dL (0.7-1.3) 05/27/20 22:15 Est Cr Clr Drug Dosing 65.17 mL/min 05/27/20 22:15 Estimated GFR (MDRD) > 60 mL/min (>60) 05/27/20 22:15 BUN/Creatinine Ratio 16.4 (14-18) 05/27/20 22:15 Glucose 113 mg/dL (80-115) 05/27/20 22:15 Hemoglobin A1c 5.90 % (4.50-6.20) 05/28/20 14:52 Uric Acid 5.1 mg/dL (3.5-7.2) 05/28/20 14:52 Calcium 8.5 mg/dL (8.5-10.1) 05/27/20 22:15 Ferritin 294 ng/ml (26-388) 05/28/20 14:52 Total Bilirubin 0.2 mg/dL (0.2-1.0) 05/27/20 22:15 AST 28 U/L (15-37) 05/27/20 22:15 ALT 50 U/L (16-63) 05/27/20 22:15 Alkaline Phosphatase 66 U/L (46-116) 05/27/20 22:15 C-Reactive Protein 0.7 mg/dL (<1.0) 05/27/20 22:15 Total Protein 6.6 g/dl (6.4-8.2) 05/27/20 22:15 Albumin 3.3 g/dl (3.4-5.0) L 05/27/20 22:15 Globulin 3.3 gm/dL 05/27/20 22:15 Albumin/Globulin Ratio 1.0 (1-2) 05/27/20 22:15 Triglycerides 136 mg/dL (<150) 05/28/20 14:52 Cholesterol 135 mg/dL (<200) 05/28/20 14:52 LDL Cholesterol Direct 82 mg/dL (<100) 05/28/20 14:52 HDL Cholesterol 33.0 mg/dL (40-59) L 05/28/20 14:52 Vitamin B12 304 pg/ml (193-986) 05/28/20 14:52 Folate 15.5 ng/mL (8.6-58.9) 05/28/20 14:52 SARS Virus RNA (PCR) Presumptive pos (NEGATIVE) 05/27/20 22:58 Blood Type O POSITIVE 05/27/20 22:15 Gel Antibody Screen Negative 05/27/20 22:15 Crossmatch See Detail 05/27/20 22:15 - Allergies Allergies/Adverse Reactions: Allergies Allergy/AdvReac Type Severity Reaction Status Date / Time levofloxacin [From Levaquin] Allergy Other Verified 03/24/19 06:18 sulfamethoxazole Allergy Blisters Verified 03/24/19 06:18 [From Bactrim] trimethoprim [From Bactrim] Allergy Blisters Verified 03/24/19 06:18 - Anesthesia Plan Pre-Op Medication Ordered: Beta Nidhi Beta Nidhi: Metoprolol Med Last Dose Date: 05/29/20 Med Last Dose Time: 09:00 - Acknowledgements Anesthesia Type Planned: MAC Pt an Appropriate Candidate for the Planned Anesthesia: Yes Alternatives and Risks of Anesthesia Discussed w Pt/Guardian: Yes Pt/Guardian Understands and Agrees with Anesthesia Plan: Yes PreAnesthesia Questionnaire HEENT History: Reports: Other (See Below) Other HEENT History: Wears glasses got reading Cardiovascular History: Reports: High Cholesterol, Hypertension, SOB on Exertion Respiratory History: Reports: Asthma, Sleep Apnea Gastrointestinal History: Reports: Diverticulosis, GERD, GI Bleed, Hemorrhoids Genitourinary History: Reports: Urinary Incontinence Musculoskeletal History: Reports: Gout, Osteoarthritis Endocrine/Metabolic History: Reports: Obesity/BMI 30+ Oncologic (Cancer) History: Reports: Prostate, Other (See Below) Other Oncologic History: Skin - Infectious Disease History Infectious Disease History: Reports: Chicken Pox, Influenza, Measles, MRSA, Mumps - Past Surgical History HEENT Surgical History: Reports: Naso-Sinus Surgery, Other (See Below) Other HEENT Surgeries/Procedures: X3 Cardiovascular Surgical History: Reports: None Respiratory Surgical History: Reports: None GI Surgical History: Reports: Colonoscopy, Hernia, Inguinal Male Surgical History: Reports: Prostatectomy Endocrine Surgical History: Reports: None Musculoskeletal Surgical History: Reports: Carpal Tunnel, Knee Replacement, Shoulder Surgery Other Musculoskeletal Surgeries/Procedures:: btka, rotator cuff repair Oncologic Surgical History: Reports: None - SUBSTANCE USE Smoking Status *Q: Former Smoker Tobacco Use Within Last Twelve Months: No Second Hand Smoke Exposure: No Days Per Week of Alcohol Use: 7 Number of Drinks Per Day: 3 Total Drinks Per Week: 21 Date of Last Drink: 05/26/20 Time of Last Drink: 19:00 Recreational Drug Use History: No - HOME MEDS Home Medications: Home Meds Albuterol Sulfate [Albuterol Sulfate Hfa] 2 puff INH DAILY PRN 03/24/19 [History] Fluticasone/Vilanterol [Breo Ellipta 200-25 MCG Inhalation Kit] 1 puff INH DAILY 03/24/19 [History] Furosemide 40 mg PO 1600 03/24/19 [History] Losartan [Cozaar] 100 mg PO DAILY 03/24/19 [History] Metoprolol Tartrate 50 mg PO BID 03/24/19 [History] Montelukast [Singulair] 10 mg PO BEDTIME 03/24/19 [History] NIFEdipine [Nifedipine ER] 30 mg PO BEDTIME 03/24/19 [History] Rosuvastatin [Crestor] 10 mg PO BEDTIME 03/24/19 [History] allopurinoL [Zyloprim] 300 mg PO DAILY 03/24/19 [History] - CURRENT (IN HOUSE) MEDS Current Meds: Current Medications Albuterol (Proventil Hfa) 0 gm INH DAILY PRN PRN Reason: Allergies Last Admin: 05/28/20 18:22 Dose: 2 puff Documented by: Furosemide (Lasix) 40 mg PO 1600 [facility] Last Admin: 05/28/20 18:46 Dose: 40 mg Documented by: Hydralazine HCl (Apresoline) 10 mg IVPUSH Q2H PRN PRN Reason: Hypertension Lactated Ringer's (Ringers, Lactated) 1,000 mls @ 75 mls/hr IV ASDIRECTED [facility] Last Admin: 05/29/20 08:42 Dose: 75 mls/hr Documented by: Mometasone Furoate/Formoterol Fumar (Dulera 200-5 Mcg) 0 puff IH BID [facility] Last Admin: 05/29/20 08:15 Dose: 1 puff Documented by: Rosuvastatin Calcium (Crestor) 10 mg PO BEDTIME [facility] Last Admin: 05/28/20 21:24 Dose: 10 mg Documented by: Sodium Chloride (Saline Flush) 10 ml FLUSH ASDIRECTED PRN PRN Reason: Keep Vein Open Last Admin: 05/27/20 22:46 Dose: 10 ml Documented by: Discontinued Medications Fentanyl (Sublimaze) Confirm Administered Dose 100 mcg .ROUTE .STK-MED ONE Stop: 05/29/20 09:20 Sodium Chloride (Normal Saline) 1,000 mls @ 999 mls/hr IV ASDIRECTED [facility] Last Admin: 05/27/20 22:25 Dose: 999 mls/hr Documented by: Lactated Ringer's (Ringers, Lactated) 1,000 mls @ 999 mls/hr IV .BOLUS ONE Stop: 05/27/20 23:32 Last Admin: 05/27/20 22:45 Dose: 999 mls/hr Documented by: Lactated Ringer's (Ringers, Lactated) 1,000 mls @ 100 mls/hr IV ASDIRECTED [facility] Last Infusion: 05/28/20 17:18 Dose: 75 mls/hr Documented by: Metronidazole 500 mg/ Premix 100 mls @ 100 mls/hr IV ONETIME ONE Stop: 05/28/20 01:12 Last Admin: 05/28/20 00:55 Dose: 100 mls/hr Documented by: Ceftriaxone Sodium 1 gm/ (Sodium Chloride) 100 mls @ 200 mls/hr IV ONETIME ONE Stop: 05/28/20 00:43 Last Admin: 05/28/20 00:59 Dose: 200 mls/hr Documented by: Lidocaine HCl (Lidocaine 1%) Confirm Administered Dose 4 ml .ROUTE .STK-MED ONE Stop: 05/29/20 09:20 Midazolam HCl (Versed 1 Mg/Ml) Confirm Administered Dose 2 mg .ROUTE .STK-MED ONE Stop: 05/29/20 09:20 Polyethylene Glycol/Electrolytes (Golytely) 4,000 ml PO ONETIME ONE Stop: 05/28/20 10:01 Last Admin: 05/28/20 10:11 Dose: 4,000 ml Documented by: Propofol (Diprivan 20 Ml) Confirm Administered Dose 200 mg .ROUTE .STK-MED ONE Stop: 05/29/20 09:20
--- NOTE | 2020-05-29 11:26 | PCM48HPAN ---
Post Anesthesia Note - EVALUATION WITHIN 48HRS OF ANESTHETIC Vital Signs in Normal Range: Yes Patient Participated in Evaluation: Yes Respiratory Function Stable: Yes Airway Patent: Yes Cardiovascular Function Stable: Yes Hydration Status Stable: Yes Pain Control Satisfactory: Yes Nausea and Vomiting Control Satisfactory: Yes Mental Status Recovered: Yes Vital Signs: Last Vital Signs Temp 36.9 C 05/29/20 05:49 Pulse 88 05/29/20 05:49 Resp 12 05/29/20 05:49 BP 137/76 05/29/20 05:49 Pulse Ox 95 05/29/20 08:17 - COMMENTS/OBSERVATIONS Free Text/Narrative:: no anesthesia complications noted
--- NOTE | 2020-05-29 11:35 | PCM.PN ---
- General Info Date of Service: 05/29/20 Admission Dx/Problem (Free Text): GI Bleeding Subjective Update: Doing well. No more bleeding overnight. No abdominal pain Functional Status: Reports: Ambulating, Urinating - Review of Systems General: Reports: No Symptoms HEENT: Reports: No Symptoms Pulmonary: Reports: No Symptoms Cardiovascular: Reports: No Symptoms Gastrointestinal: Reports: Hematochezia Genitourinary: Reports: No Symptoms Musculoskeletal: Reports: No Symptoms Skin: Reports: No Symptoms Neurological: Reports: No Symptoms Psychiatric: Reports: No Symptoms - Patient Data Vitals - Most Recent: Last Vital Signs Temp 98.4 F 05/29/20 05:49 Pulse 88 05/29/20 05:49 Resp 12 05/29/20 05:49 BP 137/76 05/29/20 05:49 Pulse Ox 95 05/29/20 08:17 Weight - Most Recent: 119.522 kg I&O - Last 24 Hours: Intake & Output 05/28/20 05/29/20 05/29/20 22:59 06:59 14:59 Intake Total 3217 2900 Output Total 3200 Balance 3217 -300 Lab Results Last 24 Hours: Laboratory Results - last 24 hr 05/28/20 05/28/20 05/28/20 Range/Units 14:52 14:52 14:52 Hgb 9.7 L (13.7-17.5) gm/dl Hct 30.8 L (40.1-51.0) % Percent Retic 2.05 H (0.51-1.81) % Hemoglobin A1c (4.50-6.20) % Uric Acid 5.1 (3.5-7.2) mg/dL Ferritin (26-388) ng/ml Prealbumin (17.0-34.0) mg/dL Triglycerides 136 (<150) mg/dL Cholesterol 135 (<200) mg/dL LDL Cholesterol Direct 82 (<100) mg/dL HDL Cholesterol 33.0 L (40-59) mg/dL Vitamin B12 (193-986) pg/ml Folate (8.6-58.9) ng/mL 05/28/20 05/28/20 05/28/20 Range/Units 14:52 14:52 14:52 Hgb (13.7-17.5) gm/dl Hct (40.1-51.0) % Percent Retic (0.51-1.81) % Hemoglobin A1c 5.90 (4.50-6.20) % Uric Acid (3.5-7.2) mg/dL Ferritin 294 (26-388) ng/ml Prealbumin 26.5 (17.0-34.0) mg/dL Triglycerides (<150) mg/dL Cholesterol (<200) mg/dL LDL Cholesterol Direct (<100) mg/dL HDL Cholesterol (40-59) mg/dL Vitamin B12 304 (193-986) pg/ml Folate 15.5 (8.6-58.9) ng/mL 05/28/20 05/28/20 Range/Units 18:20 22:26 Hgb 10.1 L 10.0 L (13.7-17.5) gm/dl Hct 31.5 L 31.3 L (40.1-51.0) % Percent Retic (0.51-1.81) % Hemoglobin A1c (4.50-6.20) % Uric Acid (3.5-7.2) mg/dL Ferritin (26-388) ng/ml Prealbumin (17.0-34.0) mg/dL Triglycerides (<150) mg/dL Cholesterol (<200) mg/dL LDL Cholesterol Direct (<100) mg/dL HDL Cholesterol (40-59) mg/dL Vitamin B12 (193-986) pg/ml Folate (8.6-58.9) ng/mL Med Orders - Current: Current Medications Albuterol (Proventil Hfa) 0 gm INH DAILY PRN PRN Reason: Allergies Last Admin: 05/28/20 18:22 Dose: 2 puff Documented by: Furosemide (Lasix) 40 mg PO 1600 [facility] Last Admin: 05/28/20 18:46 Dose: 40 mg Documented by: Hydralazine HCl (Apresoline) 10 mg IVPUSH Q2H PRN PRN Reason: Hypertension Lactated Ringer's (Ringers, Lactated) 1,000 mls @ 75 mls/hr IV ASDIRECTED [facility] Last Admin: 05/29/20 08:42 Dose: 75 mls/hr Documented by: Mometasone Furoate/Formoterol Fumar (Dulera 200-5 Mcg) 0 puff IH BID [facility] Last Admin: 05/29/20 08:15 Dose: 1 puff Documented by: Rosuvastatin Calcium (Crestor) 10 mg PO BEDTIME [facility] Last Admin: 05/28/20 21:24 Dose: 10 mg Documented by: Sodium Chloride (Saline Flush) 10 ml FLUSH ASDIRECTED PRN PRN Reason: Keep Vein Open Last Admin: 05/27/20 22:46 Dose: 10 ml Documented by: Discontinued Medications Fentanyl (Sublimaze) Confirm Administered Dose 100 mcg .ROUTE .STK-MED ONE Stop: 05/29/20 09:20 Sodium Chloride (Normal Saline) 1,000 mls @ 999 mls/hr IV ASDIRECTED [facility] Last Admin: 05/27/20 22:25 Dose: 999 mls/hr Documented by: Lactated Ringer's (Ringers, Lactated) 1,000 mls @ 999 mls/hr IV .BOLUS ONE Stop: 05/27/20 23:32 Last Admin: 05/27/20 22:45 Dose: 999 mls/hr Documented by: Lactated Ringer's (Ringers, Lactated) 1,000 mls @ 100 mls/hr IV ASDIRECTED [facility] Last Infusion: 05/28/20 17:18 Dose: 75 mls/hr Documented by: Metronidazole 500 mg/ Premix 100 mls @ 100 mls/hr IV ONETIME ONE Stop: 05/28/20 01:12 Last Admin: 05/28/20 00:55 Dose: 100 mls/hr Documented by: Ceftriaxone Sodium 1 gm/ (Sodium Chloride) 100 mls @ 200 mls/hr IV ONETIME ONE Stop: 05/28/20 00:43 Last Admin: 05/28/20 00:59 Dose: 200 mls/hr Documented by: Lidocaine HCl (Lidocaine 1%) Confirm Administered Dose 4 ml .ROUTE .STK-MED ONE Stop: 05/29/20 09:20 Midazolam HCl (Versed 1 Mg/Ml) Confirm Administered Dose 2 mg .ROUTE .STK-MED ONE Stop: 05/29/20 09:20 Polyethylene Glycol/Electrolytes (Golytely) 4,000 ml PO ONETIME ONE Stop: 05/28/20 10:01 Last Admin: 05/28/20 10:11 Dose: 4,000 ml Documented by: Propofol (Diprivan 20 Ml) Confirm Administered Dose 200 mg .ROUTE .STK-MED ONE Stop: 05/29/20 09:20 Propofol (Diprivan 20 Ml) Confirm Administered Dose 200 mg .ROUTE .STK-MED ONE Stop: 05/29/20 10:07 Propofol (Diprivan 20 Ml) Confirm Administered Dose 200 mg .ROUTE .STK-MED ONE Stop: 05/29/20 10:25 Propofol (Diprivan 20 Ml) Confirm Administered Dose 200 mg .ROUTE .STK-MED ONE Stop: 05/29/20 10:45 - Exam General: Alert, Oriented, Cooperative Lungs: Clear to Auscultation, Normal Respiratory Effort Cardiovascular: Regular Rate, Regular Rhythm, No Murmurs GI/Abdominal Exam: Soft, Non-Tender, No Organomegaly, No Distention, No Abnormal Bruit Sepsis Event Note - Evaluation Sepsis Screening Result: No Definite Risk - Focused Exam Vital Signs: Vital Signs Temp Pulse Resp BP Pulse Ox Pulse Ox 05/29/20 08:17 95 05/29/20 05:49 98.4 F 88 12 137/76 94 L - Problem List Review Problem List Initiated/Reviewed/Updated: No - My Orders Last 24 Hours: My Active Orders 05/29/20 09:00 Schedule Procedure [COMM] Routine - Assessment Assessment:: Patient had recent severe GI bleed. EGD and Colonoscopy performed today. EGD showed mild antral gastritis. No stigmata of bleeding Colonoscopy showed large, flat proximal ascending colon polyps that was partially removed and 2 descending polyps that were removed. There was greade IV hemorrhoids, one with a recent clot indicating recent bleeding. Hemorrhoids were banded x 3. His bleeding was likely from the hemorrhoids. - Plan Plan:: -No NSAIDs or ASA for 14 days - Stool softener or miralax BID x 14 days - SItz baths PRN - Tylenol for rectal discomfort - Ok to discharge the patient per surgical standpoint, follow up with PCP. Call my office or come to the ED if bleeding recurs.
--- NOTE | 2020-05-29 14:31 | PROC ---
DATE OF OPERATION: 05/29/2020 SURGEON: Marcela Ochoa MD PREOPERATIVE DIAGNOSIS: GI bleed. POSTOPERATIVE DIAGNOSIS: Hemorrhoidal bleeding. PROCEDURES: 1. Gastroduodenoscopy. 2. Colonoscopy. 3. Hemorrhoid banding FINDINGS: 1. Large sessile polyp in the proximal ascending colon that was partially removed. 2. Two polyps in the descending colon. 3. Hemorrhoids. ANESTHESIA: Monitored anesthesia care. COMPLICATIONS: None. INDICATION AND CONSENT: The patient is a 65-year-old male who presented to the emergency department a day ago with hematochezia of many episodes. The patient also had a period of syncope during one episode of hematochezia. The patient presented to the emergency department where he had several other episodes of bloody bowel movements here too, who was admitted for monitoring, he stayed stable. Hemoglobin trended from 12 to 10 and remained stable there. I talked to the patient and discussed that we may need to find out why he is having bleeding. I offered EGD and colonoscopy. We discussed risks, benefits, and alternatives, and informed consent was obtained. DETAILS OF PROCEDURE: The patient was taken to procedure room, placed in left lateral decubitus position. Following induction of monitored anesthesia care a time-out was performed. I began with the EGD, scope was placed into the mouth and taken all the way to the second portion of duodenum. Duodenum appeared normal. Antrum had mild erythema indicating patchy gastritis. This areas were biopsied by cold forceps. The stomach body was normal. On retroflexion this was normal. We then went to the esophagus, which appeared normal as well. Air was suctioned from the stomach and the scope was withdrawn. Then since we did not find a reason for GI bleeding, we proceeded with colonoscopy. Perianal exam revealed grade 4 hemorrhoids. In one area of the hemorrhoids in the right posterior aspect, there was a clot right at the hemorrhoid area and this hemorrhoid was deflated indicating recent bleeding. The rest of the perianal and digital rectal exam were normal. We placed the scope and took it all the way to the cecum. Ileocecal valve was photographed as well as appendiceal orifice. Right distal to the ileocecal valve, there was an a large flat polyp in this area. This polyp was about 3 cm and it was right behind a fold. Efforts were made to try to remove this large polyp including saline lift as well as snare techniques, but about a half of this was removed with a snare and the other half was not able to be resected due to his difficult position. Therefore, we proceeded with a tattoo in this area. This area was tattooed with ink and all the pieces that were removed were suctioned out. Of note, the resected portion of the polyp was resected piecemeal. Once this was done, we determined that we could not remove the entire polyp, we proceeded with the colonoscopy, continued to withdraw slowly. There was no stigmata of blood from the cecum all the way out. There were 2 small polyps in the descending colon, one was about 5 mm pedunculated, the other one was about 3 mm, was also semipedunculated. The 5 mm polyp was removed with a hot snare and the 3 mm polyp was removed with cold forceps. Then, we continued to withdraw the colonoscope. On retroflexion, the hemorrhoids were again visualized. At this point air was suctioned out and the scope was withdrawn. Next, we proceeded with hemorrhoid banding. An anoscope was placed into the rectum and 3 columns of hemorrhoids were all banded without any complications. This marked the end of the procedure. At the end of the procedure the patient was awoken and taken back to his room. The patient will be allowed to return home, watch for bleeding and infection, and call my office if any complications arise or come to the emergency department if I am not available. CHACHA /[id number] TAN
[2020-05-29] MEDS ORDERED: Pantoprazole 40 MG Tab.CR PO SCH (15:00)
--- NOTE | 2020-05-29 15:07 | PCM.DCSUM1 ---
Discharge Summary - Hospital Course HPI Initial Comments: This is a 65-year-old male with past medical history of hypertension, asthma and hemorrhoids who comes to the ED with history of bright red blood per rectum. As per patient he was in his usual state of health up to a week ago when he had constipation for 3 days, after which he had hard bowel movements and subsequent rectal pain and mild bleeding which resolved on its own. Yesterday he was fine up to around 7PM when he had the sudden urge to have a bowel movement and didn't make it to the restroom having a bowel movement described as partially solid but pure blood. He continued to have these, approximately 10 after which he decided to come to the ED for further evaluation. He has seen a physician for hemorrhoids prior to this and was prescribed Calmoseptine which he applied last week to relieve rectal pain. He denies any abdominal pain, nausea, vomiting, bloating, hematemesis or melena, shortness of breath, chest pain, palpitations. Prior colonoscopy for screening 12 years ago most likely negative as patient was told to get repeat study in 10 years. Acute lower GI bleed Hypotension, tachycardia and anemia due to blood loss 10 bloody bowel movements prior to consultation - Prior hemorrhoid diagnosis with recent constipation 1 week ago and subsequent mild rectal bleeding x 2-3 days that resolved on its own Overnight had 6 more episodes Current Hb 10, down from 12.[address] abdomen with incidental diverticuli without signs of infection PLAN - Trend hemoglobin every 4 hours on pediatric tubes - Goal Hb >8 - Calmoseptine for rectal pain - Surgery consult - Colon prep for colonoscopy, 50% now and the rest after 7PM - NPO for now - IV repletion with LR for now - PRN Zofran IV COVID-19 positive 3 weeks ago COVID-19 virus RNA test result equivocal Tested positive on 04/24/20 - Didn't receive any treatment - Completed quarantine - Was symptomatic for about 2.5 weeks - Repeat test yesterday reported as "presumptive positive" No current respiratory symptoms PLAN - Repeat COVID sent out F/U result - Maximum isolation precautions pending new result Intermittent asthma without complications Prior smoker On daily Breo and PRN albuterol at home - No prior exacerbations or intubations - Audible wheezing throughout Smoked for 20 years - Quit 1989 PLAN - Continue home Breo-Ellipta - Continue Albuterol q4h PRN - O2 supplementation as needed for goal O2 > 88% Hypertension Hypotensive on admission 95/54 (67) - Had a syncopal episode in ED and hit his head CT head negative for acute findings PLAN - Hold home Losartan and Metoprolol for now Dyslipidemia No acute issues PLAN - Continue Rosuvastatin once PO - New lipid panel Dependent edema On daily furosemide Has acute volume depletion PLAN - Hold furosemide for now H/O prostate cancer >5 years ago s/p total resection Subsequent PSA elevation that required radiation Full remission as per oncology PLAN - Monitor for urinary retention Daily alcohol use Has 3 drinks every day Last drink 05/26/20 PLAN - CIWA protocol - IV thiamine Obstructive sleep apnea Not on home CPAP PLAN - Monitor O2 and CO2 levels Hypoalbuminemia Decreased appetite for about a month, since COVID diagnosis PLAN - Dietary consult and follow up - Prealbumin and vitamin levels Gout No recent attacks On home allopurinol PLAN - Hold allopurinol for now - Uric acid level PROPHYLAXIS DVT- Lovenox GI- not indicated CODE STATUS: FULL CODE DISPOSITION: Patient will be admitted for monitorization of blood loss by trending hemoglobin on full isolation until COVID status is confirmed. Surgery has been consulted and are pending to evaluate patient. SOCIAL: Lives with in [place] Previous smoker, quit 1989 Current daily drinker, 3/day Last drink 05/26 Diagnosis: Stroke: No - Discharge Data Discharge Date: 05/29/20 Discharge Disposition: Home, Self-Care 01 Condition: Good - Referral to Home Health Primary Care Physician: Hermila Cyr PA-C - Discharge Diagnosis/Problem(s) (1) Acute posthemorrhagic anemia SNOMED Code(s): 575467584 ICD Code: D62 - ACUTE POSTHEMORRHAGIC ANEMIA Status: Acute Current Visit: Yes (2) COVID-19 virus RNA test result equivocal SNOMED Code(s): 954194155, 20870386, 816157627, 427489171, 406912116 ICD Code: Z20.828 - CONTACT W AND EXPOSURE TO OTH VIRAL COMMUNICABLE DISEASES Status: Acute Current Visit: Yes (3) Dependent edema SNOMED Code(s): 130473113 ICD Code: R60.9 - EDEMA, UNSPECIFIED Status: Acute Current Visit: Yes (4) Gout SNOMED Code(s): 82041364 ICD Code: M10.9 - GOUT, UNSPECIFIED Status: Acute Current Visit: Yes (5) Hemorrhoids SNOMED Code(s): 32889425 ICD Code: K64.9 - UNSPECIFIED HEMORRHOIDS Status: Acute Current Visit: Yes (6) Hypotension due to blood loss SNOMED Code(s): 99873895 ICD Code: I95.89 - OTHER HYPOTENSION Status: Acute Current Visit: Yes (7) Lower GI bleed SNOMED Code(s): 15765583 ICD Code: K92.2 - GASTROINTESTINAL HEMORRHAGE, UNSPECIFIED Status: Acute Current Visit: Yes - Patient Summary/Data Consults: Consultations 05/28/20 11:18 Consult to Physician [CONS] Routine Hospital Course: Patient was admitted and hemoglobin was followed. Initial hemoglobin was 12.3 and it stabilized at 10.0. Panendoscopy was performed showing a hemorrhoid that likely recently bled. Because of his gastritis he was placed on a PPI and discharged home in good condition. He also had a large colon polyp that will need further resection by Dr. Ochoa in approximately 90 days. EGD showed mild antral gastritis. No stigmata of bleeding Colonoscopy showed large, flat proximal ascending colon polyps that was partially removed and 2 descending polyps that were removed. There was grade IV hemorrhoids, one with a recent clot indicating recent bleeding. Hemorrhoids were banded x 3. His bleeding was likely from the hemorrhoids. - Patient Instructions Diet: Heart Healthy Diet Activity: As Tolerated Driving: Do Not Drive Showering/Bathing: May Shower Other/Special Instructions: Follow-up with Dr. Ochoa in 30 days. Do not take any nonsteroidal anti-inflammatories like ibuprofen or naproxen. Do not take any aspirin. A prescription for pantoprazole was sent to [facility] pharmacy. 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 Start MiraLAX in the evening and docusate sodium 100 mg in the morning. Sitz baths as needed for rectal comfort. Do not let yourself get constipated. Follow-up with your primary care provider in 1 to 2 weeks. - Discharge Plan *PRESCRIPTION DRUG MONITORING PROGRAM REVIEWED*: No *COPY OF PRESCRIPTION DRUG MONITORING REPORT IN PATIENT [place]: No Prescriptions/Med Rec: Docusate Sodium [Colace] 100 mg PO DAILY #30 cap polyethylene glycoL 3350 [Miralax] 17 gm PO BEDTIME #30 powd.pack Pantoprazole [ProTONIX] 40 mg PO DAILY #30 tab.cr Home Medications: Home Meds Albuterol Sulfate [Albuterol Sulfate Hfa] 2 puff INH DAILY PRN 03/24/19 [History] Fluticasone/Vilanterol [Breo Ellipta 200-25 MCG Inhalation Kit] 1 puff INH DAILY 03/24/19 [History] Furosemide 40 mg PO 1600 03/24/19 [History] Losartan [Cozaar] 100 mg PO DAILY 03/24/19 [History] Metoprolol Tartrate 50 mg PO BID 03/24/19 [History] Montelukast [Singulair] 10 mg PO BEDTIME 03/24/19 [History] NIFEdipine [Nifedipine ER] 30 mg PO BEDTIME 03/24/19 [History] Rosuvastatin [Crestor] 10 mg PO BEDTIME 03/24/19 [History] allopurinoL [Zyloprim] 300 mg PO DAILY 03/24/19 [History] Docusate Sodium [Colace] 100 mg PO DAILY #30 cap 05/29/20 [Rx] Pantoprazole [ProTONIX] 40 mg PO DAILY #30 tab.cr 05/29/20 [Rx] polyethylene glycoL 3350 [Miralax] 17 gm PO BEDTIME #30 powd.pack 05/29/20 [Rx] Forms: ED Department Discharge Referrals: Hermila Cyr PA-C [Primary Care Provider] - - Discharge Summary/Plan Comment DC Time >30 min.: Yes Discharge Summary/Plan Comment: Follow-up with primary care provider in 1 to 2 weeks. Follow-up with Dr. Ochoa in [address] Ochoa's office if bleeding occurs from the banded hemorrhoids. - General Info Date of Service: 05/29/20 Admission Dx/Problem (Free Text: GI Bleeding Subjective Update: Patient is doing well. No more bloody stools overnight. He denies any dizziness, chest pain, or shortness of breath. Functional Status: Reports: Pain Controlled - Review of Systems General: Reports: No Symptoms HEENT: Reports: No Symptoms Pulmonary: Reports: No Symptoms Cardiovascular: Reports: No Symptoms Gastrointestinal: Reports: No Symptoms Musculoskeletal: Reports: No Symptoms - Patient Data Vitals - Most Recent: Last Vital Signs Temp 98.2 F 05/29/20 08:46 Pulse 81 05/29/20 12:01 Resp 20 05/29/20 08:46 BP 139/80 05/29/20 12:01 Pulse Ox 95 05/29/20 12:01 Weight - Most Recent: 119.522 kg I&O - Last 24 hours: Intake & Output 05/29/20 05/29/20 05/29/20 06:59 14:59 22:59 Intake Total 2900 Output Total 3200 Balance -300 Lab Results - Last 24 hrs: Laboratory Results - last 24 hr 05/28/20 05/28/20 05/28/20 Range/Units 14:52 14:52 14:52 Hgb 9.7 L (13.7-17.5) gm/dl Hct 30.8 L (40.1-51.0) % Percent Retic 2.05 H (0.51-1.81) % Hemoglobin A1c (4.50-6.20) % Uric Acid 5.1 (3.5-7.2) mg/dL Ferritin (26-388) ng/ml Prealbumin (17.0-34.0) mg/dL Triglycerides 136 (<150) mg/dL Cholesterol 135 (<200) mg/dL LDL Cholesterol Direct 82 (<100) mg/dL HDL Cholesterol 33.0 L (40-59) mg/dL Vitamin B12 (193-986) pg/ml Folate (8.6-58.9) ng/mL 05/28/20 05/28/20 05/28/20 Range/Units 14:52 14:52 14:52 Hgb (13.7-17.5) gm/dl Hct (40.1-51.0) % Percent Retic (0.51-1.81) % Hemoglobin A1c 5.90 (4.50-6.20) % Uric Acid (3.5-7.2) mg/dL Ferritin 294 (26-388) ng/ml Prealbumin 26.5 (17.0-34.0) mg/dL Triglycerides (<150) mg/dL Cholesterol (<200) mg/dL LDL Cholesterol Direct (<100) mg/dL HDL Cholesterol (40-59) mg/dL Vitamin B12 304 (193-986) pg/ml Folate 15.5 (8.6-58.9) ng/mL 05/28/20 05/28/20 Range/Units 18:20 22:26 Hgb 10.1 L 10.0 L (13.7-17.5) gm/dl Hct 31.5 L 31.3 L (40.1-51.0) % Percent Retic (0.51-1.81) % Hemoglobin A1c (4.50-6.20) % Uric Acid (3.5-7.2) mg/dL Ferritin (26-388) ng/ml Prealbumin (17.0-34.0) mg/dL Triglycerides (<150) mg/dL Cholesterol (<200) mg/dL LDL Cholesterol Direct (<100) mg/dL HDL Cholesterol (40-59) mg/dL Vitamin B12 (193-986) pg/ml Folate (8.6-58.9) ng/mL Med Orders - Current: Current Medications Albuterol (Proventil Hfa) 0 gm INH DAILY PRN PRN Reason: Allergies Last Admin: 05/28/20 18:22 Dose: 2 puff Documented by: Allopurinol (Zyloprim) 300 mg PO DAILY [facility] Furosemide (Lasix) 40 mg PO 1600 [facility] Last Admin: 05/28/20 18:46 Dose: 40 mg Documented by: Hydralazine HCl (Apresoline) 10 mg IVPUSH Q2H PRN PRN Reason: Hypertension Lactated Ringer's (Ringers, Lactated) 1,000 mls @ 75 mls/hr IV ASDIRECTED [facility] Last Admin: 05/29/20 08:42 Dose: 75 mls/hr Documented by: Losartan Potassium (Cozaar) 100 mg PO DAILY [facility] Metoprolol Tartrate (Lopressor) 50 mg PO BID [facility] Mometasone Furoate/Formoterol Fumar (Dulera 200-5 Mcg) 0 puff IH BID [facility] Last Admin: 05/29/20 08:15 Dose: 1 puff Documented by: Montelukast Sodium (Singulair) 10 mg PO BEDTIME [facility] Nifedipine (Procardia Xl) 30 mg PO BEDTIME [facility] Pantoprazole Sodium (Protonix) 40 mg PO ACBREAKFAST [facility] Rosuvastatin Calcium (Crestor) 10 mg PO BEDTIME [facility] Last Admin: 05/28/20 21:24 Dose: 10 mg Documented by: Sodium Chloride (Saline Flush) 10 ml FLUSH ASDIRECTED PRN PRN Reason: Keep Vein Open Last Admin: 05/27/20 22:46 Dose: 10 ml Documented by: Discontinued Medications Fentanyl (Sublimaze) Confirm Administered Dose 100 mcg .ROUTE .STK-MED ONE Stop: 05/29/20 09:20 Sodium Chloride (Normal Saline) 1,000 mls @ 999 mls/hr IV ASDIRECTED [facility] Last Admin: 05/27/20 22:25 Dose: 999 mls/hr Documented by: Lactated Ringer's (Ringers, Lactated) 1,000 mls @ 999 mls/hr IV .BOLUS ONE Stop: 05/27/20 23:32 Last Admin: 05/27/20 22:45 Dose: 999 mls/hr Documented by: Lactated Ringer's (Ringers, Lactated) 1,000 mls @ 100 mls/hr IV ASDIRECTED [facility] Last Infusion: 05/28/20 17:18 Dose: 75 mls/hr Documented by: Metronidazole 500 mg/ Premix 100 mls @ 100 mls/hr IV ONETIME ONE Stop: 05/28/20 01:12 Last Admin: 05/28/20 00:55 Dose: 100 mls/hr Documented by: Ceftriaxone Sodium 1 gm/ (Sodium Chloride) 100 mls @ 200 mls/hr IV ONETIME ONE Stop: 05/28/20 00:43 Last Admin: 05/28/20 00:59 Dose: 200 mls/hr Documented by: Lidocaine HCl (Lidocaine 1%) Confirm Administered Dose 4 ml .ROUTE .STK-MED ONE Stop: 05/29/20 09:20 Midazolam HCl (Versed 1 Mg/Ml) Confirm Administered Dose 2 mg .ROUTE .STK-MED ONE Stop: 05/29/20 09:20 Polyethylene Glycol/Electrolytes (Golytely) 4,000 ml PO ONETIME ONE Stop: 05/28/20 10:01 Last Admin: 05/28/20 10:11 Dose: 4,000 ml Documented by: Propofol (Diprivan 20 Ml) Confirm Administered Dose 200 mg .ROUTE .STK-MED ONE Stop: 05/29/20 09:20 Propofol (Diprivan 20 Ml) Confirm Administered Dose 200 mg .ROUTE .STK-MED ONE Stop: 05/29/20 10:07 Propofol (Diprivan 20 Ml) Confirm Administered Dose 200 mg .ROUTE .STK-MED ONE Stop: 05/29/20 10:25 Propofol (Diprivan 20 Ml) Confirm Administered Dose 200 mg .ROUTE .STK-MED ONE Stop: 05/29/20 10:45 - Exam General: Reports: Alert, Oriented HEENT: Reports: Pupils Equal, Mucous Membr. Moist/[place] Neck: Reports: Supple Lungs: Reports: Clear to Auscultation, Normal Respiratory Effort Cardiovascular: Reports: Regular Rate, Regular Rhythm GI/Abdominal Exam: Normal Bowel Sounds, Soft, Non-Tender, No Distention Extremities: Normal Inspection, Normal Range of Motion, Non-Tender, No Pedal Edema Skin: Reports: Warm, Dry, Intact Neurological: Reports: No New Focal Deficit Psy/Mental Status: Reports: Alert, Normal Affect, Normal Mood
[2020-05-29] MEDS: Furosemide 40 MG Tab PO SCH (15:50)
[2020-05-29] MEDS ORDERED: NIFEdipine 30 MG Tab.ER PO SCH (21:00)
[2020-05-29] MEDS ORDERED: Metoprolol Tartrate 50 MG Tab PO SCH (21:00)
[2020-05-29] MEDS ORDERED: Montelukast 10 MG Tab PO SCH (21:00)
[2020-05-30] MEDS ORDERED: Allopurinol 300 MG Tab PO SCH (09:00)
[2020-05-30] MEDS ORDERED: Losartan 100 MG Tab PO SCH (09:00)
== END 2020-05-29 16:22 | disposition home or self-care (01) | DRG 393 ==
LOC: JD.ED 21:22 → JD.MS 05-28 01:15
PROVIDERS: ADMIT Internal Medicine; ATTEND Internal Medicine
PROC: 0DJ08ZZ Inspection of Upper Intestinal Tract, Via Natural or Artificial Opening Endoscopic (ICD-10-PCS; principal; 2020-05-29)
PROC: 0W3P8ZZ Control Bleeding in Gastrointestinal Tract, Via Natural or Artificial Opening Endoscopic (ICD-10-PCS; 2020-05-29)
DX: K92.1 Melena (principal); I95.1 Orthostatic hypotension; K64.9 Unspecified hemorrhoids; E78.00 Pure hypercholesterolemia, unspecified; U07.1 COVID-19; J45.909 Unspecified asthma, uncomplicated; M19.90 Unspecified osteoarthritis, unspecified site; E66.9 Obesity, unspecified; D62 Acute posthemorrhagic anemia; J45.20 Mild intermittent asthma, uncomplicated; Z96.653 Presence of artificial knee joint, bilateral; Z90.79 Acquired absence of other genital organ(s); Z87.891 Personal history of nicotine dependence; Z88.1 Allergy status to other antibiotic agents; Z79.899 Other long term (current) drug therapy; Z68.38 Body mass index [BMI] 38.0-38.9, adult; F17.210 Nicotine dependence, cigarettes, uncomplicated; I10 Essential (primary) hypertension; Z85.46 Personal history of malignant neoplasm of prostate; E78.5 Hyperlipidemia, unspecified; K29.70 Gastritis, unspecified, without bleeding; K63.5 Polyp of colon; M10.9 Gout, unspecified; G47.33 Obstructive sleep apnea (adult) (pediatric); Z72.89 Other problems related to lifestyle
CPT/HCPCS: 36415; 70450; 74177; 80053; 85025; 85610; 85730; 86140; J0696; J3490; J7030; J7050; J7120 ×2; U0002 ×2; 00813; 80061; 82607; 82728; 82746; 83036; 84134; 84550; 85014; 85018; 85045; 86850; 86900; 86901; 86922; 88305; 94640; 94760; 96361; 96365; 96368; 99222; 99239; 99284; 99285-25; A9270-GY; J2001; J2250; J2704; J3010

== ENCOUNTER 2020-09-12 07:32 | Day surgery (SDC) | payer MEDICARE, BC ==
[~2020-09-12 07:32] MED LIST: Lactated Ringers 1,000 ML IV SCH; Lidocaine 1% 4 ML ONE; Lidocaine 1%/Sod Bicarbonate in NS 8.4% 1 ML Syringe IDERM PRN; Propofol 200 MG/20 ML SDV ONE; Sodium Chloride 0.9% 10 ML Syringe FLUSH PRN; fentaNYL 100 MCG/2 ML SDV ONE
--- NOTE | 2020-09-12 07:48 | PCM.PREANE ---
Preanesthetic Assessment - Anesthesia/Transfusion/Family Hx Anesthesia History: Prior Anesthesia Without Reaction Family History of Anesthesia Reaction: Yes Transfusion History: No Prior Transfusion(s) - Review of Systems General: No Symptoms Pulmonary: No Symptoms Cardiovascular: No Symptoms Gastrointestinal: No Symptoms Neurological: No Symptoms Other: Reports: None - Physical Assessment NPO Status Date: 09/11/20 NPO Status Time: 23:30 ASA Class: 3 Mental Status: Alert & Oriented x3 Airway Class: Mallampati = 1 Dentition: Reports: Normal Dentition, Broken Tooth/Teeth (upper back left, bottom back right) Thyro-Mental Finger Breadths: 3 Mouth Opening Finger Breadths: 3 ROM/Head Extension: Full Lungs: Clear to Auscultation, Normal Respiratory Effort - Allergies Allergies/Adverse Reactions: Allergies Allergy/AdvReac Type Severity Reaction Status Date / Time levofloxacin [From Levaquin] Allergy Muscle Verified 09/09/20 10:41 Aches pravastatin Allergy Muscle Verified 09/09/20 10:42 Aches simvastatin Allergy Muscle Verified 09/09/20 10:42 Aches sulfamethoxazole Allergy Blisters Verified 09/09/20 10:41 [From Bactrim] trimethoprim [From Bactrim] Allergy Blisters Verified 09/09/20 10:41 - Anesthesia Plan Beta Nidhi: Metoprolol Med Last Dose Date: 09/12/20 Med Last Dose Time: 07:00 - Acknowledgements Anesthesia Type Planned: MAC Pt an Appropriate Candidate for the Planned Anesthesia: Yes Alternatives and Risks of Anesthesia Discussed w Pt/Guardian: Yes Pt/Guardian Understands and Agrees with Anesthesia Plan: Yes PreAnesthesia Questionnaire HEENT History: Reports: Other (See Below) Other HEENT History: Wears glasses got reading Cardiovascular History: Reports: High Cholesterol, Hypertension, SOB on Exertion Respiratory History: Reports: Asthma, Sleep Apnea Other Respiratory History: Covid 19 Gastrointestinal History: Reports: Diverticulosis, GERD, GI Bleed, Hemorrhoids Genitourinary History: Reports: Prostate Disorder, Urinary Incontinence Musculoskeletal History: Reports: Gout, Osteoarthritis Endocrine/Metabolic History: Reports: Obesity/BMI 30+ Oncologic (Cancer) History: Reports: Prostate, Other (See Below) Other Oncologic History: Skin - Infectious Disease History Infectious Disease History: Reports: Chicken Pox, Influenza, Measles, MRSA, Mumps - Past Surgical History HEENT Surgical History: Reports: Naso-Sinus Surgery, Other (See Below) Other HEENT Surgeries/Procedures: X3 Cardiovascular Surgical History: Reports: None Respiratory Surgical History: Reports: None GI Surgical History: Reports: Colonoscopy, Hernia, Inguinal Male Surgical History: Reports: Prostatectomy Endocrine Surgical History: Reports: None Musculoskeletal Surgical History: Reports: Carpal Tunnel, Knee Replacement, Shoulder Surgery Other Musculoskeletal Surgeries/Procedures:: btka, rotator cuff repair Oncologic Surgical History: Reports: None - SUBSTANCE USE Tobacco Use Status *Q: Former Tobacco User Tobacco Use Within Last Twelve Months: No Days Per Week of Alcohol Use: 7 Number of Drinks Per Day: 2 Total Drinks Per Week: 14 Date of Last Drink: 09/08/20 Recreational Drug Use History: No - HOME MEDS Home Medications: Home Meds Albuterol Sulfate [Albuterol Sulfate Hfa] 2 puff INH DAILY PRN 03/24/19 [History] Fluticasone/Vilanterol [Breo Ellipta 200-25 MCG Inhalation Kit] 1 puff INH DAILY 03/24/19 [History] Furosemide 40 mg PO 1600 03/24/19 [History] Losartan [Cozaar] 100 mg PO DAILY 03/24/19 [History] Metoprolol Tartrate 50 mg PO BID 03/24/19 [History] Montelukast [Singulair] 10 mg PO BEDTIME 03/24/19 [History] NIFEdipine [Nifedipine ER] 30 mg PO BEDTIME 03/24/19 [History] Rosuvastatin [Crestor] 10 mg PO BEDTIME 03/24/19 [History] allopurinoL [Zyloprim] 300 mg PO DAILY 03/24/19 [History] Docusate Sodium [Colace] 100 mg PO DAILY #30 cap 05/29/20 [Rx] Pantoprazole [ProTONIX] 40 mg PO DAILY #30 tab.cr 05/29/20 [Rx] polyethylene glycoL 3350 [Miralax] 17 gm PO BEDTIME #30 powd.pack 05/29/20 [Rx] Acetaminophen [Tylenol] 09/09/20 [History] Budesonide [Pulmicort] 09/09/20 [History] Cetirizine HCl [Zyrtec] 09/09/20 [History] Clemastine [Tavist Allergy] 09/09/20 [History] Clobetasol/Emollient [Temovate E 0.05% Crm] 09/09/20 [History] Fluticasone/Vilanterol [Breo Ellipta 200-25 MCG Inhalation Kit] 09/09/20 [History] Mepolizumab [Nucala] 09/09/20 [History] Non-Formulary Medication [NF Drug] 09/09/20 [History] traMADol [Ultram] 09/09/20 [History] - CURRENT (IN HOUSE) MEDS Current Meds: Current Medications Lactated Ringer's (Ringers, Lactated) 1,000 mls @ 125 mls/hr IV ASDIRECTED LIZETT Stop: 09/12/20 23:00 Lidocaine/Sodium Bicarbonate (Buffered Lidocaine 1% In Ns 8.4%) 0.25 ml IDERM ONETIME PRN PRN Reason: Prior to IV Start Stop: 09/12/20 18:00 Sodium Chloride (Saline Flush) 10 ml FLUSH ASDIRECTED PRN PRN Reason: Keep Vein Open Stop: 09/12/20 18:00 Discontinued Medications Fentanyl (Sublimaze) Confirm Administered Dose 100 mcg .ROUTE .STK-MED ONE Stop: 09/12/20 07:26 Lactated Ringer's (Ringers, Lactated) 1,000 mls @ 125 mls/hr IV ASDIRECTED LIZETT Stop: 08/22/20 23:00 Lidocaine HCl (Xylocaine-Mpf 1%) Confirm Administered Dose 4 mls @ as directed .ROUTE .STK-MED ONE Stop: 09/12/20 07:25 Lidocaine/Sodium Bicarbonate (Buffered Lidocaine 1% In Ns 8.4%) 0.25 ml IDERM ONETIME PRN PRN Reason: Prior to IV Start Stop: 08/22/20 18:00 Propofol (Diprivan 20 Ml) Confirm Administered Dose 200 mg .ROUTE .STK-MED ONE Stop: 09/12/20 07:25 Propofol (Diprivan 20 Ml) Confirm Administered Dose 200 mg .ROUTE .STK-MED ONE Stop: 09/12/20 07:25 Sodium Chloride (Saline Flush) 10 ml FLUSH ASDIRECTED PRN PRN Reason: Keep Vein Open Stop: 08/22/20 18:00
[2020-09-12] MEDS ORDERED: Propofol 200 MG/20 ML SDV ONE ×4 (09:05→09:56)
--- NOTE | 2020-09-12 10:22 | PCM48HPAN ---
Post Anesthesia Note - EVALUATION WITHIN 48HRS OF ANESTHETIC Vital Signs in Normal Range: Yes Patient Participated in Evaluation: Yes Respiratory Function Stable: Yes Airway Patent: Yes Cardiovascular Function Stable: Yes Hydration Status Stable: Yes Pain Control Satisfactory: Yes Nausea and Vomiting Control Satisfactory: Yes Mental Status Recovered: Yes Vital Signs: Last Vital Signs Temp 36.7 C 09/12/20 07:40 Pulse 89 09/12/20 07:40 Resp 20 09/12/20 07:40 BP 166/79 H 09/12/20 07:40 Pulse Ox 94 L 09/12/20 07:40
--- NOTE | 2020-09-13 02:07 | PROC ---
DATE OF OPERATION: 09/12/2020 SURGEON: Marcela Ochoa MD PREOPERATIVE DIAGNOSIS: Large polyp in the ascending colon that was unable to be removed. POSTOPERATIVE DIAGNOSIS: Large polyp in the ascending colon that was unable to be completely removed. PROCEDURE: Colonoscopy. ESTIMATED BLOOD LOSS: Minimal. ANESTHESIA: Monitored anesthesia care. COMPLICATIONS: None. INDICATIONS AND CONSENT: The patient is 65, who underwent colonoscopy 3 months ago for GI bleeding. He was found to have a large polyp in the ascending colon. Efforts were made to remove this flat polyp, it could not be removed easily. Biopsies were taken that revealed tubular adenoma without dysplasia. The patient was asked to return for another colonoscopy with attempted removal in 3 months for which the patient is coming today. We discussed risks, benefits, and alternatives and informed consent was obtained. DETAILS OF PROCEDURE: The patient was taken to the procedure room, placed in left lateral decubitus position. A time-out was performed. The patient was padded appropriately and then monitored anesthesia care was induced. We began a digital rectal examination, which revealed was a grade 3 hemorrhoid in the left lateral position. Then, scope was inserted and taken all the way to the cecum. Ileocecal valve and appendiceal orifice were photographed. Just distal to the ileocecal valve, behind the fold, there was a large 3 cm flat polyp that was tattooed in the past. Tattoo ink was still visible. We used saline lift technique and a hexagonal hot snare to attempt to remove the polyp. Unfortunately, we were only able to remove about 60% of the polyp. The remaining 40% was unable to be snared and removed despite multiple attempts. The polyp was flat and was unable to be lifted up likely due to scarring. Because of this inability to remove the entire polyp despite multiple attempts, we decided to go ahead and re-tattoo this area again and proceed with a colonoscopy. During the colonoscopy, we were able to find two 3 mm polyps in the transverse colon, which were removed completely with cold forceps. There was another 6 cm flat polyp in the descending colon that was removed completely with a hot snare. There was another 2 mm polyp in the sigmoid colon that was also removed with cold forceps. So a total of five polyps were removed in this case with one of them being incompletely removed. Once this was done, the patient also had multiple large diverticula in the sigmoid colon. On retroflexion, the patient had grade 3 internal hemorrhoids. At this point, air was suctioned out from the colon and the procedure was concluded. The plan is for the patient to think about surgical removal of the large proximal ascending colon polyp versus a third endoscopic attempt. MMODAL /[id number] MTDD
== END 2020-09-12 12:06 | disposition home or self-care (01) ==
LOC: JD.SDS 07:32
PROVIDERS: ATTEND Surgery
DX: D12.2 Benign neoplasm of ascending colon (principal); D12.3 Benign neoplasm of transverse colon; D12.4 Benign neoplasm of descending colon; K64.2 Third degree hemorrhoids; K57.30 Diverticulosis of large intestine without perforation or abscess without bleeding; J45.909 Unspecified asthma, uncomplicated; I10 Essential (primary) hypertension; G47.30 Sleep apnea, unspecified; E78.00 Pure hypercholesterolemia, unspecified; E66.9 Obesity, unspecified; Z01.812 Encounter for preprocedural laboratory examination; Z20.828 Contact with and (suspected) exposure to other viral communicable diseases; Z98.890 Other specified postprocedural states; Z79.899 Other long term (current) drug therapy; Z88.8 Allergy status to other drugs, medicaments and biological substances; Z88.1 Allergy status to other antibiotic agents; Z68.39 Body mass index [BMI] 39.0-39.9, adult
CPT/HCPCS: 45380; 45381; 45385; 88305; J2001; J2704; J3010; J7120; 00811

== ENCOUNTER 2020-11-21 06:58 | Inpatient (IN) | payer MEDICARE, BC ==
[~2020-11-21 06:58] MED LIST changes: +Bupivacaine 0.25% 10 ML SDV ONE; -Lactated Ringers 1,000 ML IV SCH; -Lidocaine 1% 4 ML ONE; -Propofol 200 MG/20 ML SDV ONE; -fentaNYL 100 MCG/2 ML SDV ONE
[2020-11-21] MEDS: Lactated Ringers 1,000 ML IV SCH ×3 (07:00→22:33)
[2020-11-21] MEDS ORDERED: fentaNYL 250 MCG/5 ML SDV ONE (07:06)
[2020-11-21] MEDS ORDERED: Midazolam 1 MG/ML 2 ML SDV ONE ×2 (07:06→10:16)
[2020-11-21] MEDS ORDERED: Rocuronium 50 MG/5 ML Vial ONE ×3 (07:06→11:20)
[2020-11-21] MEDS ORDERED: Lidocaine 1% 4 ML ONE (07:06)
[2020-11-21] MEDS ORDERED: Ondansetron 4 MG/2 ML SDV ONE ×2 (07:06→09:21)
[2020-11-21] MEDS ORDERED: Propofol 200 MG/20 ML SDV ONE (07:06)
--- NOTE | 2020-11-21 07:45 | PCM.PREANE ---
Preanesthetic Assessment - Procedure Proposed Procedure: laparasscopic right partial colectomy - Anesthesia/Transfusion/Family Hx Anesthesia History: Prior Anesthesia Without Reaction Family History of Anesthesia Reaction: No Transfusion History: No Prior Transfusion(s) - Review of Systems General: No Symptoms Pulmonary: Cough (all the time because of asthma) Cardiovascular: No Symptoms Gastrointestinal: No Symptoms, Diarrhea (yesterday) Neurological: No Symptoms Other: Reports: None - Physical Assessment NPO Status Date: 11/20/20 NPO Status Time: 23:55 (sip with pill) Vital Signs: 132/77 85 94% 16 98.2 Height: 5 ft 8 in Weight: 117 kg ASA Class: 3 Mental Status: Alert & Oriented x3 Airway Class: Mallampati = 2 Dentition: Reports: Normal Dentition, Broken Tooth/Teeth (left side upper hurts- and chip top right) Thyro-Mental Finger Breadths: 3 Mouth Opening Finger Breadths: 3 ROM/Head Extension: Full Lungs: Clear to Auscultation, Normal Respiratory Effort Cardiovascular: Regular Rate, Regular Rhythm - Lab Values: hgb 14.2 plt 264 Covid- neg - Imaging/EKG Impressions: 11/21/20 EKG SR 71-axis borderline normal= No distict ST-T changes - Allergies Allergies/Adverse Reactions: Allergies Allergy/AdvReac Type Severity Reaction Status Date / Time levofloxacin [From Levaquin] Allergy Muscle Verified 11/18/20 08:51 Aches pravastatin Allergy Muscle Verified 11/18/20 08:51 Aches simvastatin Allergy Muscle Verified 11/18/20 08:51 Aches sulfamethoxazole Allergy Blisters Verified 11/18/20 08:51 [From Bactrim] trimethoprim [From Bactrim] Allergy Blisters Verified 11/18/20 08:51 - Blood Blood Available: No - Anesthesia Plan Beta Nidhi: Metoprolol Med Last Dose Date: 11/21/20 (629) - Acknowledgements Anesthesia Type Planned: General Anesthesia, Epidural Pt an Appropriate Candidate for the Planned Anesthesia: Yes Alternatives and Risks of Anesthesia Discussed w Pt/Guardian: Yes Pt/Guardian Understands and Agrees with Anesthesia Plan: Yes PreAnesthesia Questionnaire HEENT History: Reports: Other (See Below) Other HEENT History: Wears glasses got reading Cardiovascular History: Reports: High Cholesterol, Hypertension, SOB on Exertion Respiratory History: Reports: Asthma, Sleep Apnea (cpap) Other Respiratory History: Covid 19 Gastrointestinal History: Reports: Diverticulosis, GERD, GI Bleed, Hemorrhoids Genitourinary History: Reports: Urinary Incontinence Musculoskeletal History: Reports: Gout, Osteoarthritis Endocrine/Metabolic History: Reports: Obesity/BMI 30+ Oncologic (Cancer) History: Reports: Prostate, Other (See Below) Other Oncologic History: Skin - Infectious Disease History Infectious Disease History: Reports: Chicken Pox, Influenza, Measles, MRSA, Mumps - Past Surgical History HEENT Surgical History: Reports: Naso-Sinus Surgery, Other (See Below) Other HEENT Surgeries/Procedures: X3 Cardiovascular Surgical History: Reports: None Respiratory Surgical History: Reports: None GI Surgical History: Reports: Colonoscopy, Hernia, Inguinal Male Surgical History: Reports: Prostatectomy Endocrine Surgical History: Reports: None Musculoskeletal Surgical History: Reports: Carpal Tunnel, Knee Replacement, Shoulder Surgery Other Musculoskeletal Surgeries/Procedures:: btka, rotator cuff repair Oncologic Surgical History: Reports: None - SUBSTANCE USE Tobacco Use Status *Q: Former Tobacco User Tobacco Use Within Last Twelve Months: No Second Hand Smoke Exposure: No Days Per Week of Alcohol Use: 7 Number of Drinks Per Day: 3 (beer) Total Drinks Per Week: 21 Recreational Drug Use History: No - HOME MEDS Home Medications: Home Meds Albuterol Sulfate [Albuterol Sulfate Hfa] 2 puff INH DAILY PRN 03/24/19 [History] Fluticasone/Vilanterol [Breo Ellipta 200-25 MCG Inhalation Kit] 1 puff INH DAILY 03/24/19 [History] Furosemide 40 mg PO 1600 03/24/19 [History] Losartan [Cozaar] 100 mg PO DAILY 03/24/19 [History] Metoprolol Tartrate 50 mg PO BID 03/24/19 [History] Montelukast [Singulair] 10 mg PO BEDTIME 03/24/19 [History] NIFEdipine [Nifedipine ER] 30 mg PO BEDTIME 03/24/19 [History] Rosuvastatin [Crestor] 10 mg PO BEDTIME 03/24/19 [History] allopurinoL [Zyloprim] 300 mg PO DAILY 03/24/19 [History] Docusate Sodium [Colace] 100 mg PO DAILY #30 cap 05/29/20 [Rx] Pantoprazole [ProTONIX] 40 mg PO DAILY #30 tab.cr 05/29/20 [Rx] polyethylene glycoL 3350 [Miralax] 17 gm PO BEDTIME #30 powd.pack 05/29/20 [Rx] Acetaminophen [Tylenol] 650 mg PO Q4H PRN 09/09/20 [History] Budesonide [Pulmicort] 1 dose NEB QPM 09/09/20 [History] Cetirizine HCl [Zyrtec] 10 mg PO DAILY PRN 09/09/20 [History] Clemastine [Tavist Allergy] 2.68 mg PO ASDIRECTED PRN 09/09/20 [History] Clobetasol/Emollient [Temovate E 0.05% Crm] 1 dose TOP BID 09/09/20 [History] Fluticasone/Vilanterol [Breo Ellipta 200-25 MCG Inhalation Kit] 1 puff INH DAILY 09/09/20 [History] Mepolizumab [Nucala] 1 dose SQ Q30D 09/09/20 [History] traMADol [Ultram] 50 mg PO QID PRN 09/09/20 [History] Umeclidinium Monroe [Incruse Ellipta] 1 puff INH DAILY 09/12/20 [History] Meloxicam [Mobic] 15 mg PO DAILY 11/21/20 [History] - CURRENT (IN HOUSE) MEDS Current Meds: Current Medications Lactated Ringer's (Ringers, Lactated) 1,000 mls @ 125 mls/hr IV ASDIRECTED LIZETT Stop: 11/21/20 23:00 Lidocaine/Sodium Bicarbonate (Buffered Lidocaine 1% In Ns 8.4%) 0.25 ml IDERM ONETIME PRN PRN Reason: Prior to IV Start Stop: 11/21/20 18:00 Sodium Chloride (Saline Flush) 10 ml FLUSH ASDIRECTED PRN PRN Reason: Keep Vein Open Stop: 11/21/20 18:00 Discontinued Medications Fentanyl (Sublimaze) Confirm Administered Dose 250 mcg .ROUTE .STK-MED ONE Stop: 11/21/20 07:07 Lidocaine HCl (Xylocaine-Mpf 1%) Confirm Administered Dose 4 mls @ as directed .ROUTE .STK-MED ONE Stop: 11/21/20 07:07 Midazolam HCl (Versed 1 Mg/Ml) Confirm Administered Dose 2 mg .ROUTE .STK-MED ONE Stop: 11/21/20 07:07 Ondansetron HCl (Zofran) Confirm Administered Dose 4 mg .ROUTE .STK-MED ONE Stop: 11/21/20 07:07 Propofol (Diprivan 20 Ml) Confirm Administered Dose 200 mg .ROUTE .STRypple-MED ONE Stop: 11/21/20 07:07 Rocuronium Monroe (Zemuron) Confirm Administered Dose 50 mg .ROUTE .STRypple-MED ONE Stop: 11/21/20 07:07
[2020-11-21] MEDS ORDERED: Bupivacaine 0.5%/EPINEPHrine 1:200,000 50 ML MDV ONE (08:00)
[2020-11-21] MEDS ORDERED: Morphine PF 10 MG/10 ML SDV ONE (08:06)
[2020-11-21] MEDS ORDERED: Albuterol 0.083% 2.5 MG/3 ML Neb Soln NEB ONE (08:11)
[2020-11-21] MEDS ORDERED: Lactated Ringers 1,000 ML ONE ×2 (08:58→10:52)
[2020-11-21] MEDS ORDERED: Ertapenem 1 GM in Sodium Chloride 0.9% 50 ML IV ONE (09:00)
[2020-11-21] MEDS ORDERED: ePHEDrine 50 MG/ML SDV ONE (09:19)
[2020-11-21] MEDS ORDERED: Meperidine 50 MG/ML Vial IVPUSH PRN (09:30)
[2020-11-21] MEDS ORDERED: diphenhydrAMINE 50 MG/ML SDV IVPUSH PRN (09:30)
[2020-11-21] MEDS ORDERED: Ondansetron 4 MG/2 ML SDV IVPUSH PRN (09:30)
--- NOTE | 2020-11-21 10:22 | PCM.SN.2 ---
- Free Text/Narrative Note: 11/21/20 Time out and start 0831. End at 0839 Procedure is epidural placement for post op pain control per patient and Dr Ochoa request for post op pain managment. Surgical procedure is laparoscopic right partial colectomy. Sterile prep and drape while patient in sitting position. Chlorprep times 3 prior to drape. Lidocaine 1% local infiltration at L45. Loss of resistance technique with saline- 8 cm- cath threaded easily to 15 cm. Secured with yellow sponge and opsite. Taped catheter. Test dose 1.5% lidocaine with epi 1:200,000 3 ml . Tolerated well. Vitals stable. 125/70- HR 80 SAt 95%. To OR after placed. Gill
[2020-11-21] MEDS ORDERED: Dexamethasone 4 MG/ML 5 ML MDV ONE (11:06)
--- NOTE | 2020-11-21 14:02 | PCM.POSTAN ---
POST ANESTHESIA ASSESSMENT - MENTAL STATUS Mental Status: Alert, Oriented - VITAL SIGNS Vital Signs: Last Vital Signs Temp 98.2 F 11/21/20 07:05 Pulse 85 11/21/20 07:05 Resp 16 11/21/20 07:05 BP 132/77 11/21/20 07:05 Pulse Ox 96 11/21/20 08:11 1356 117/67 97 20 98.4 99% - RESPIRATORY Respiratory Status: Respiratory Rate WNL, Airway Patent, O2 Saturation Stable, Supplemental Oxygen - CARDIOVASCULAR CV Status: Pulse Rate WNL, Blood Pressure Stable - GASTROINTESTINAL GI Status: No Symptoms - PAIN Pain Score: 0 (thumbs up-) - POST OP HYDRATION Hydration Status: Adequate & Stable
[2020-11-21] MEDS: fentaNYL 100 MCG/2 ML SDV IVPUSH PRN ×2 (14:24→14:33)
[2020-11-21] MEDS ORDERED: Docusate Sodium 100 MG Cap PO PRN (14:32)
[2020-11-21] MEDS ORDERED: HYDROmorphone 0.5 MG/0.5 ML Syringe IVPUSH PRN (14:32)
[2020-11-21] MEDS ORDERED: Acetaminophen/HYDROcodone 325-5 MG Tab PO PRN (14:32)
[2020-11-21] MEDS ORDERED: [UNRECOGNIZED DRUG - REMARK] PO PRN (14:40)
[2020-11-21] MEDS ORDERED: Albuterol 6.7 GM Inhaler INH PRN (14:40)
[2020-11-21] MEDS ORDERED: Acetaminophen 325 MG Tab PO SCH (14:45)
[2020-11-21] MEDS ORDERED: Loratadine 10 MG Tab PO PRN (14:48)
--- NOTE | 2020-11-21 16:02 | OR ---
DATE OF OPERATION: 11/21/2020 SURGEON: Marcela Ochoa MD PREOPERATIVE DIAGNOSIS: Large proximal ascending colon polyp, unable to be removed with colonoscopy. POSTOPERATIVE DIAGNOSIS: Same. OPERATION PERFORMED: Laparoscopic right hemicolectomy. ANESTHESIA: General endotracheal and epidural. ESTIMATED BLOOD LOSS: 25 mL. COMPLICATIONS: None. NEED FOR ASSISTANCE: Skilled assistance of Shruti Angeles CNP was needed in this case. She assisted with patient positioning, holding the camera and retractors during the procedure, and incision closure at the end of the procedure. INDICATIONS AND CONSENT: Mr. Arguello is a 65-year-old male, who initially presented with a GI bleed and endoscopy was done, we found a large, about 3 cm, polyp in the proximal ascending colon. This was biopsied and turned out to be sessile serrated polyp. The patient underwent another colonoscopy to try to remove the polyp. This was unable to be removed due to dense scarring to the colonic wall. Another colonoscopy was repeated and this also was unsuccessful. Because of the inability to remove this polyp through colonoscopy, recommendation was made to proceed with excision of this area. We discussed with the patient risks, benefits, and alternatives. The patient underwent preop workup and was deemed to be a good candidate for surgery and informed consent was obtained. DESCRIPTION OF PROCEDURE: The patient was taken to the operating room, placed in supine position. The patient was padded appropriately. A Davis catheter was placed. The abdomen was clipped of hair, preop antibiotics were given. Then, general anesthesia was induced. The patient's abdomen was prepped and draped in the usual sterile fashion. Formal time-out was performed prior to the start of the procedure. We began the procedure by injecting 1% lidocaine without epinephrine in the supraumbilical area. Incision was made in this site. Umbilical stalk was elevated and a Veress needle was introduced into the abdomen. The abdomen was insufflated to 15 mmHg. Then, a 12 mm trocar was placed at this site under direct visualization of 07/22 laparoscopic camera. Upon cursory exam of the abdomen, there were no indications or obvious injury to the abdominal wall. There was clearly ink tattooed in the right colon and there was no indication of any metastatic disease. The liver appeared to be smooth in contour. Two additional 5 mm trocars were placed, one in the left lower quadrant, another one in the left upper quadrant. Then, we turned our attention to the right side of the abdomen. We noted that there were some adhesions of the colon to the right abdominal wall, likely from prior attempts to remove the polyp. This area was densely tattooed as well. We attempted to try to mobilize the colon in the medial to lateral fashion, but it was difficult to mobilize the colon from the ileocolic vessels due to the density at this area. Therefore, we decided to place another 5 mm trocar in the suprapubic position and do caudal to cranial approach. Then, after placing a 5 mm trocar, we elevated the appendix and entered the retrocolic space at this site and successfully entered the plane between the retroperitoneum and the mesentery. We were able to separate the colon from the retroperitoneal structures successfully all the way to the hepatic flexure. Duodenum was visualized and protected. Then, we returned medially and took down the ileocolic vessels at origin by using clips and energy device, which in this case was LigaSure Impact. Both middle colic artery and vein were taken separately. Then right colic was also encountered and taken after being clipped. Mesentery was divided and then we ended by taking the colon off the lateral wall at the white line of Toldt laterally. At this point, the cecum was released from the retroperitoneum and then we changed the position of the patient to reverse Trendelenburg and took down the hepatic flexure. Once this was done, the colon was well mobilized, be able to be exteriorized. Therefore, the supraumbilical incision was extended, making about 5 cm incision and Ruben wound protector was placed and the right colon and cecum were extruded. The colon was divided at the hepatic flexure using a blue load of KERMIT stapler. Another blue load was used to divide the terminal ileum, about 15 cm from the cecum. Intervening mesentery in the small bowel was divided with LigaSure Impact, releasing the specimen, which was passed off for pathology. Prior to passing off the specimen, I palpated the specimen and the polyp was palpated. Then, the mesentery edge was hemostatic. We proceeded with creation of the anastomosis. After examining the end of the small bowel and colon, a decision was made to proceed with isoperistaltic [id number] stapled anastomosis. This seemed to be lying more in an anatomically more aligning position. Therefore, we used a blue load KERMIT to create a common enterotomy and we used a TA 60 blue to close the common enterotomy. The staple line anteriorly and the common enterotomy closure were oversewn using 3-0 silk stitches. A small colon appendage was placed at the edge of the staple line at the common enterotomy because it was difficult to over-sew this. Once this was done, the anastomosis seemed to be patent and was placed back into the abdomen. The abdomen was re-insufflated. A 5 laparoscope was placed and the anastomosis was inspected, appeared to be lying down nicely without any tension or twisting. At this point, the abdomen was desufflated and the fascia at the supraumbilical position was closed with 0 PDS stitch followed by 3-0 Vicryl in 2 layers. The three 5 mm trocar sites were closed at the skin level with 4-0 Monocryl. Dermabond was applied at all 4 sites. This marked the end of the procedure. At the end of the procedure, instruments, sharps, and sponges were counted and found to be correct x2. The patient was awakened, extubated, and taken to the PACU for further recovery. The patient will be admitted for postop recovery. CHACHA /[id number] TAN
[2020-11-21] MEDS: Acetaminophen 325 MG Tab PO SCH ×2 (16:38→23:20)
[2020-11-21] MEDS ORDERED: Budesonide 0.25 MG/2 ML Neb Susp NEB SCH (18:00)
[2020-11-21] MEDS: Budesonide 0.25 MG/2 ML Neb Susp NEB SCH (20:04)
[2020-11-21] MEDS: Rosuvastatin 10 MG Tab PO SCH (20:23)
[2020-11-21] MEDS: Metoprolol Tartrate 50 MG Tab PO SCH (20:23)
[2020-11-21] MEDS: Montelukast 10 MG Tab PO SCH (20:23)
[2020-11-21] MEDS ORDERED: CLOBETASOL TOP SCH (21:00)
[2020-11-21] MEDS ORDERED: EMOLLIENT TOP SCH (21:00)
[2020-11-21] MEDS ORDERED: fentaNYL 100 MCG/2 ML SDV IVPUSH PRN (21:15)
[2020-11-21] MEDS: HYDROmorphone 0.5 MG/0.5 ML Syringe IVPUSH PRN (22:06)
--- NOTE | 2020-11-21 22:42 | PCM.SN.2 ---
- Free Text/Narrative Note: Anesthesia Note: Start:2099 Stop:2129 Anesthesia notified regarding patient c/o pain rated 5/10. ICU nurse requesting additional orders for pain management. Dr. Ochoa notified and order for toradol declined. Order for IV fentanyl and IV dilaudid prn placed. ICU nurse informed of pain management orders and also reminded to notify anesthesia when epidural needs discontinuation. Patient scheduled for SQ heparin 11/22/2020 at 0900. Patient VSS, patient awake at bedside resting quietly. Thank you, Filomena GONZALEZ
[2020-11-22] MEDS: Acetaminophen 325 MG Tab PO SCH ×4 (04:34→22:09)
[2020-11-22] MEDS: HYDROmorphone 0.5 MG/0.5 ML Syringe IVPUSH PRN (05:40)
[2020-11-22] MEDS: Pantoprazole 40 MG Tab.CR PO SCH (05:40)
[2020-11-22] MEDS ORDERED: Lactated Ringers 1,000 ML IV SCH (07:30)
--- NOTE | 2020-11-22 07:33 | PCM.PN ---
- General Info Date of Service: 11/22/20 Subjective Update: Patient is feeling ok today. He has some pain on the right side and around the incisions but not too much. No nausea or vomiting. tolerating clears. Functional Status: Reports: Pain Controlled, Tolerating Diet (clears) - Review of Systems General: Reports: No Symptoms HEENT: Reports: No Symptoms Pulmonary: Reports: No Symptoms Cardiovascular: Reports: No Symptoms Gastrointestinal: Reports: Abdominal Pain (around incisions) Genitourinary: Reports: No Symptoms Musculoskeletal: Reports: No Symptoms Skin: Reports: No Symptoms Neurological: Reports: No Symptoms - Patient Data Vitals - Most Recent: Last Vital Signs Temp 97.3 F 11/22/20 06:00 Pulse 81 11/22/20 06:00 Resp 18 11/22/20 07:01 BP 124/67 11/22/20 07:01 Pulse Ox 95 11/22/20 07:01 Weight - Most Recent: 120.519 kg I&O - Last 24 Hours: Intake & Output 11/21/20 11/22/20 11/22/20 22:59 06:59 14:59 Intake Total 110 1602 Output Total 775 975 Balance -665 627 Lab Results Last 24 Hours: Laboratory Results - last 24 hr 11/21/20 11/21/20 11/21/20 Range/Units 07:03 07:32 07:32 WBC 7.20 (4.23-9.07) K/mm3 RBC 4.90 (4.63-6.08) M/mm3 Hgb 14.2 (13.7-17.5) gm/dl Hct 44.1 (40.1-51.0) % MCV 90.0 (79.0-92.2) fl MCH 29.0 (25.7-32.2) pg MCHC 32.2 (32.2-35.5) g/dl RDW Std Deviation 51.4 H (35.1-43.9) fL Plt Count 264 (163-337) K/mm3 MPV 9.1 L (9.4-12.3) fl Neut % (Auto) 61.3 (34.0-67.9) % Lymph % (Auto) 20.3 L (21.8-53.1) % O'Brien % (Auto) 16.7 H (5.3-12.2) % Eos % (Auto) 0.3 L (0.8-7.0) Baso % (Auto) 1.3 H (0.1-1.2) % Neut # (Auto) 4.42 (1.78-5.38) K/mm3 Lymph # (Auto) 1.46 (1.32-3.57) K/mm3 O'Brien # (Auto) 1.20 H (0.30-0.82) K/mm3 Eos # (Auto) 0.02 L (0.04-0.54) K/mm3 Baso # (Auto) 0.09 H (0.01-0.08) K/mm3 Manual Slide Review Sodium 142 (136-145) mEq/L Potassium 3.6 (3.5-5.1) mEq/L Chloride 104 (98-107) mEq/L Carbon Dioxide 26 (21-32) mEq/L Anion Gap 15.6 H (5-15) BUN 17 (7-18) mg/dL Creatinine 1.0 (0.7-1.3) mg/dL Est Cr Clr Drug Dosing 69.35 mL/min Estimated GFR (MDRD) > 60 (>60) mL/min BUN/Creatinine Ratio 17.0 (14-18) Glucose 109 (80-115) mg/dL Calcium 9.0 (8.5-10.1) mg/dL Phosphorus (2.6-4.7) mg/dL Magnesium (1.8-2.4) mg/dl Total Bilirubin 0.7 (0.2-1.0) mg/dL AST 24 (15-37) U/L ALT 39 (16-63) U/L Alkaline Phosphatase 64 (46-116) U/L Total Protein 7.5 (6.4-8.2) g/dl Albumin 3.9 (3.4-5.0) g/dl Globulin 3.6 gm/dL Albumin/Globulin Ratio 1.1 (1-2) SARS-CoV-2 RNA (ZOFIA) Negative (NEGATIVE) 11/22/20 11/22/20 Range/Units 05:31 05:31 WBC 10.58 H (4.23-9.07) K/mm3 RBC 4.00 L (4.63-6.08) M/mm3 Hgb 11.7 L D (13.7-17.5) gm/dl Hct 37.2 L (40.1-51.0) % MCV 93.0 H D (79.0-92.2) fl MCH 29.3 (25.7-32.2) pg MCHC 31.5 L (32.2-35.5) g/dl RDW Std Deviation 52.4 H (35.1-43.9) fL Plt Count 216 (163-337) K/mm3 MPV 9.3 L (9.4-12.3) fl Neut % (Auto) 65.9 (34.0-67.9) % Lymph % (Auto) 13.9 L (21.8-53.1) % O'Brien % (Auto) 19.8 H (5.3-12.2) % Eos % (Auto) 0 L (0.8-7.0) Baso % (Auto) 0.2 (0.1-1.2) % Neut # (Auto) 6.97 H (1.78-5.38) K/mm3 Lymph # (Auto) 1.47 (1.32-3.57) K/mm3 O'Brien # (Auto) 2.10 H (0.30-0.82) K/mm3 Eos # (Auto) 0.00 L (0.04-0.54) K/mm3 Baso # (Auto) 0.02 (0.01-0.08) K/mm3 Manual Slide Review Abnormal smear Sodium 139 (136-145) mEq/L Potassium 3.9 (3.5-5.1) mEq/L Chloride 103 (98-107) mEq/L Carbon Dioxide 27 (21-32) mEq/L Anion Gap 12.9 (5-15) BUN 15 (7-18) mg/dL Creatinine 1.0 (0.7-1.3) mg/dL Est Cr Clr Drug Dosing 69.35 mL/min Estimated GFR (MDRD) > 60 (>60) mL/min BUN/Creatinine Ratio 15.0 (14-18) Glucose 103 (80-115) mg/dL Calcium 8.5 (8.5-10.1) mg/dL Phosphorus 3.4 (2.6-4.7) mg/dL Magnesium 2.0 (1.8-2.4) mg/dl Total Bilirubin (0.2-1.0) mg/dL AST (15-37) U/L ALT (16-63) U/L Alkaline Phosphatase (46-116) U/L Total Protein (6.4-8.2) g/dl Albumin (3.4-5.0) g/dl Globulin gm/dL Albumin/Globulin Ratio (1-2) SARS-CoV-2 RNA (ZOFIA) (NEGATIVE) Med Orders - Current: Current Medications Acetaminophen (Tylenol) 650 mg PO Q6H [facility] Last Admin: 11/22/20 04:34 Dose: Not Given Documented by: Albuterol (Proventil Hfa) 0 gm INH DAILY PRN PRN Reason: Allergies Budesonide (Pulmicort) 0.25 mg NEB BEDTIME [facility] Last Admin: 11/21/20 20:04 Dose: 0.25 mg Documented by: Docusate Sodium (Colace) 100 mg PO BID PRN PRN Reason: Constipation Enoxaparin Sodium (Lovenox) 40 mg SUBCUT DAILY [facility] Fentanyl (Sublimaze) 50 mcg IVPUSH Q20M PRN PRN Reason: Pain Furosemide (Lasix) 40 mg PO 1600 [facility] Hydromorphone HCl (Dilaudid) 0.5 mg IVPUSH Q2H PRN PRN Reason: Pain (severe 7-10) Last Admin: 11/22/20 05:40 Dose: 0.5 mg Documented by: Lactated Ringer's (Ringers, Lactated) 1,000 mls @ 125 mls/hr IV ASDIRECTED [facility] Last Admin: 11/21/20 22:33 Dose: 125 mls/hr Documented by: Loratadine (Claritin) 10 mg PO DAILY PRN PRN Reason: Allergies Losartan Potassium (Cozaar) 100 mg PO DAILY [facility] Metoprolol Tartrate (Lopressor) 50 mg PO BID [facility] Last Admin: 11/21/20 20:23 Dose: 50 mg Documented by: Mometasone Furoate/Formoterol Fumar (Dulera 200-5 Mcg) 2 puff IH BID [facility] Montelukast Sodium (Singulair) 10 mg PO BEDTIME [facility] Last Admin: 11/21/20 20:23 Dose: 10 mg Documented by: Nifedipine (Procardia Xl) 30 mg PO BEDTIME [facility] Non-Formulary Medication (Clobetasol/Emollient [Temovate E 0.05% Crm]) 1 dose TOP BID [facility] Pantoprazole Sodium (Protonix) 40 mg PO DAILY@0600 [facility] Last Admin: 11/22/20 05:40 Dose: 40 mg Documented by: Rosuvastatin Calcium (Crestor) 10 mg PO BEDTIME [facility] Last Admin: 11/21/20 20:23 Dose: 10 mg Documented by: Tiotropium [place] (Spiriva Respimat) 0 gm INH BID [facility] Discontinued Medications Acetaminophen (Tylenol) 650 mg PO Q6H [facility] Last Admin: 11/21/20 16:43 Dose: Not Given Documented by: Hydrocodone Bitart/Acetaminophen ([place]wood 325-5 Mg) 2 tab PO Q4H PRN PRN Reason: Pain (moderate 4-6) Albuterol (Proventil Neb Soln) 2.5 mg NEB ONETIME ONE Stop: 11/21/20 08:12 Last Admin: 11/21/20 08:18 Dose: 2.5 mg Documented by: Budesonide (Pulmicort) 0.25 mg NEB QPM [facility] Bupivacaine HCl (Sensorcaine-Mpf 0.25%) 10 ml .ROUTE .STK-MED ONE Stop: 11/21/20 00:01 Bupivacaine HCl (Sensorcaine-Mpf 0.25%) 10 ml .ROUTE .STK-MED ONE Stop: 11/21/20 00:01 Bupivacaine HCl/Epinephrine Bitart (Marcaine 0.5%/Epinephrine 1:200,000) Confirm Administered Dose 50 ml .ROUTE .STK-MED ONE Stop: 11/21/20 08:01 Last Admin: 11/21/20 13:41 Dose: 40 ml Documented by: Dexamethasone (Dexamethasone) Confirm Administered Dose 20 mg .ROUTE .STK-MED ONE Stop: 11/21/20 11:07 Diphenhydramine HCl (Benadryl) 25 mg IVPUSH Q6H PRN PRN Reason: Pruritis Stop: 11/21/20 23:00 Ephedrine Sulfate (Ephedrine Sulfate) Confirm Administered Dose 50 mg .ROUTE .STK-MED ONE Stop: 11/21/20 09:20 Fentanyl (Sublimaze) Confirm Administered Dose 250 mcg .ROUTE .STK-MED ONE Stop: 11/21/20 07:07 Fentanyl (Sublimaze) 50 mcg IVPUSH Q5M PRN PRN Reason: Pain Stop: 11/21/20 23:00 Last Admin: 11/21/20 14:33 Dose: 50 mcg Documented by: Glycopyrrolate (Hannah) Confirm Administered Dose 0.8 mg .ROUTE .STK-MED ONE Stop: 11/21/20 13:21 Hydromorphone HCl (Dilaudid) 0.5 mg IVPUSH Q2H PRN PRN Reason: Pain (severe 7-10) Lactated Ringer's (Ringers, Lactated) 1,000 mls @ 125 mls/hr IV ASDIRECTED [facility] Stop: 11/21/20 23:00 Last Admin: 11/21/20 14:57 Dose: 125 mls/hr Documented by: Lidocaine HCl (Xylocaine-Mpf 1%) Confirm Administered Dose 4 mls @ as directed .ROUTE .STK-MED ONE Stop: 11/21/20 07:07 Ertapenem 1 gm/ Sodium (Chloride) 50 mls @ 100 mls/hr IV ONETIME ONE Stop: 11/21/20 09:29 Last Admin: 11/21/20 09:05 Dose: 100 mls/hr Documented by: Lactated Ringer's (Ringers, Lactated) Confirm Administered Dose 1,000 mls @ as directed .ROUTE .STK-MED ONE Stop: 11/21/20 08:59 Lactated Ringer's (Ringers, Lactated) Confirm Administered Dose 1,000 mls @ as directed .ROUTE .STK-MED ONE Stop: 11/21/20 10:53 Lidocaine/Sodium Bicarbonate (Buffered Lidocaine 1% In Ns 8.4%) 0.25 ml IDERM ONETIME PRN PRN Reason: Prior to IV Start Stop: 11/21/20 18:00 Last Admin: 11/21/20 07:29 Dose: 0.25 ml Documented by: Meperidine HCl (Meperidine) 25 mg IVPUSH ONETIME PRN PRN Reason: Shivering Stop: 11/21/20 23:00 Midazolam HCl (Versed 1 Mg/Ml) Confirm Administered Dose 2 mg .ROUTE .STK-MED ONE Stop: 11/21/20 07:07 Midazolam HCl (Versed 1 Mg/Ml) Confirm Administered Dose 2 mg .ROUTE .STK-MED ONE Stop: 11/21/20 10:17 Miscellaneous Medication (Phenylephrine 1 Mg/10 Ml-Ns) Confirm Administered Dose 1 mg .ROUTE .STK-MED ONE Stop: 11/21/20 09:02 Morphine Sulfate (Duramorph Pf) Confirm Administered Dose 10 mg .ROUTE .STK-MED ONE Stop: 11/21/20 08:07 Neostigmine Methylsulfate (Neostigmine Methylsulfate) Confirm Administered Dose 5 mg .ROUTE .STK-MED ONE Stop: 11/21/20 13:21 Non-Formulary Medication (Clemastine [Tavist Allergy]) 2.68 mg PO ASDIRECTED PRN PRN Reason: Allergies Ondansetron HCl (Zofran) Confirm Administered Dose 4 mg .ROUTE .STK-MED ONE Stop: 11/21/20 07:07 Ondansetron HCl (Zofran) Confirm Administered Dose 4 mg .ROUTE .STK-MED ONE Stop: 11/21/20 09:22 Ondansetron HCl (Zofran) 4 mg IVPUSH ONETIME PRN PRN Reason: Nausea/Vomiting Stop: 11/21/20 23:00 Propofol (Diprivan 20 Ml) Confirm Administered Dose 200 mg .ROUTE .STK-MED ONE Stop: 11/21/20 07:07 Rocuronium [place] (Zemuron) Confirm Administered Dose 50 mg .ROUTE .STK-MED ONE Stop: 11/21/20 07:07 Rocuronium [place] (Zemuron) Confirm Administered Dose 50 mg .ROUTE .STK-MED ONE Stop: 11/21/20 09:17 Rocuronium [place] (Zemuron) Confirm Administered Dose 50 mg .ROUTE .STK-MED ONE Stop: 11/21/20 11:21 Sodium Chloride (Saline Flush) 10 ml FLUSH ASDIRECTED PRN PRN Reason: Keep Vein Open Stop: 11/21/20 18:00 - Exam General: Alert, Oriented, Cooperative Lungs: Normal Respiratory Effort Cardiovascular: Regular Rate, Regular Rhythm, No Murmurs GI/Abdominal Exam: Soft, Distended, Tender (R abd, curtis-incisional) Back Exam: Normal Inspection - Patient Data Lab Results Last 24 hrs: Laboratory Results - last 24 hr 11/21/20 11/21/20 11/21/20 Range/Units 07:03 07:32 07:32 WBC 7.20 (4.23-9.07) K/mm3 RBC 4.90 (4.63-6.08) M/mm3 Hgb 14.2 (13.7-17.5) gm/dl Hct 44.1 (40.1-51.0) % MCV 90.0 (79.0-92.2) fl MCH 29.0 (25.7-32.2) pg MCHC 32.2 (32.2-35.5) g/dl RDW Std Deviation 51.4 H (35.1-43.9) fL Plt Count 264 (163-337) K/mm3 MPV 9.1 L (9.4-12.3) fl Neut % (Auto) 61.3 (34.0-67.9) % Lymph % (Auto) 20.3 L (21.8-53.1) % O'Brien % (Auto) 16.7 H (5.3-12.2) % Eos % (Auto) 0.3 L (0.8-7.0) Baso % (Auto) 1.3 H (0.1-1.2) % Neut # (Auto) 4.42 (1.78-5.38) K/mm3 Lymph # (Auto) 1.46 (1.32-3.57) K/mm3 O'Brien # (Auto) 1.20 H (0.30-0.82) K/mm3 Eos # (Auto) 0.02 L (0.04-0.54) K/mm3 Baso # (Auto) 0.09 H (0.01-0.08) K/mm3 Manual Slide Review Sodium 142 (136-145) mEq/L Potassium 3.6 (3.5-5.1) mEq/L Chloride 104 (98-107) mEq/L Carbon Dioxide 26 (21-32) mEq/L Anion Gap 15.6 H (5-15) BUN 17 (7-18) mg/dL Creatinine 1.0 (0.7-1.3) mg/dL Est Cr Clr Drug Dosing 69.35 mL/min Estimated GFR (MDRD) > 60 (>60) mL/min BUN/Creatinine Ratio 17.0 (14-18) Glucose 109 (80-115) mg/dL Calcium 9.0 (8.5-10.1) mg/dL Phosphorus (2.6-4.7) mg/dL Magnesium (1.8-2.4) mg/dl Total Bilirubin 0.7 (0.2-1.0) mg/dL AST 24 (15-37) U/L ALT 39 (16-63) U/L Alkaline Phosphatase 64 (46-116) U/L Total Protein 7.5 (6.4-8.2) g/dl Albumin 3.9 (3.4-5.0) g/dl Globulin 3.6 gm/dL Albumin/Globulin Ratio 1.1 (1-2) SARS-CoV-2 RNA (ZOFIA) Negative (NEGATIVE) 11/22/20 11/22/20 Range/Units 05:31 05:31 WBC 10.58 H (4.23-9.07) K/mm3 RBC 4.00 L (4.63-6.08) M/mm3 Hgb 11.7 L D (13.7-17.5) gm/dl Hct 37.2 L (40.1-51.0) % MCV 93.0 H D (79.0-92.2) fl MCH 29.3 (25.7-32.2) pg MCHC 31.5 L (32.2-35.5) g/dl RDW Std Deviation 52.4 H (35.1-43.9) fL Plt Count 216 (163-337) K/mm3 MPV 9.3 L (9.4-12.3) fl Neut % (Auto) 65.9 (34.0-67.9) % Lymph % (Auto) 13.9 L (21.8-53.1) % O'Brien % (Auto) 19.8 H (5.3-12.2) % Eos % (Auto) 0 L (0.8-7.0) Baso % (Auto) 0.2 (0.1-1.2) % Neut # (Auto) 6.97 H (1.78-5.38) K/mm3 Lymph # (Auto) 1.47 (1.32-3.57) K/mm3 O'Brien # (Auto) 2.10 H (0.30-0.82) K/mm3 Eos # (Auto) 0.00 L (0.04-0.54) K/mm3 Baso # (Auto) 0.02 (0.01-0.08) K/mm3 Manual Slide Review Abnormal smear Sodium 139 (136-145) mEq/L Potassium 3.9 (3.5-5.1) mEq/L Chloride 103 (98-107) mEq/L Carbon Dioxide 27 (21-32) mEq/L Anion Gap 12.9 (5-15) BUN 15 (7-18) mg/dL Creatinine 1.0 (0.7-1.3) mg/dL Est Cr Clr Drug Dosing 69.35 mL/min Estimated GFR (MDRD) > 60 (>60) mL/min BUN/Creatinine Ratio 15.0 (14-18) Glucose 103 (80-115) mg/dL Calcium 8.5 (8.5-10.1) mg/dL Phosphorus 3.4 (2.6-4.7) mg/dL Magnesium 2.0 (1.8-2.4) mg/dl Total Bilirubin (0.2-1.0) mg/dL AST (15-37) U/L ALT (16-63) U/L Alkaline Phosphatase (46-116) U/L Total Protein (6.4-8.2) g/dl Albumin (3.4-5.0) g/dl Globulin gm/dL Albumin/Globulin Ratio (1-2) SARS-CoV-2 RNA (ZOFIA) (NEGATIVE) Result Diagrams: 11/22/20 05:31 11/22/20 05:31 Sepsis Event Note - Evaluation Sepsis Screening Result: No Definite Risk - Focused Exam Vital Signs: Vital Signs Temp Pulse Pulse Resp BP BP Pulse Ox 11/22/20 07:01 18 124/67 95 11/22/20 07:00 18 95 11/22/20 06:39 11/22/20 06:03 13 98 11/22/20 06:00 97.3 F 81 15 102/67 95 11/22/20 05:01 12 95 11/22/20 05:00 9 L 102/67 94 L 11/22/20 04:59 94 L 11/22/20 04:33 20 103/55 L 95 11/22/20 04:32 17 96 11/22/20 04:30 12 97/56 L 95 11/22/20 04:29 11 L 96 11/22/20 04:01 13 93/49 L 93 L 11/22/20 04:00 98.2 F 82 13 103/55 L 93 L 11/22/20 03:00 10 L 94 L 11/22/20 02:01 12 113/70 95 11/22/20 02:00 82 12 113/70 94 L 11/22/20 01:01 17 107/63 92 L 11/22/20 01:00 85 15 107/63 92 L 11/22/20 00:01 24 H 117/68 93 L 11/22/20 00:00 101 H 25 H 117/68 92 L 11/21/20 23:01 13 92 L 11/21/20 23:00 95 16 121/82 121/82 92 L 11/21/20 22:59 15 92 L 11/21/20 22:30 131/76 92 L 11/21/20 22:29 95 11/21/20 22:00 98 20 131/76 96 11/21/20 21:30 9 L 126/75 93 L 11/21/20 21:29 17 95 11/21/20 21:01 26 H 92 L 11/21/20 21:00 107 H 8 L 124/73 114/66 90 L 11/21/20 20:59 14 94 L 11/21/20 20:30 27 H 135/73 94 L 11/21/20 20:29 22 H 95 11/21/20 20:23 110 H 114/66 11/21/20 20:01 96 11/21/20 20:00 108 H 18 114/66 114/66 96 11/21/20 19:59 95 11/21/20 19:30 14 114/59 L 96 11/21/20 19:29 9 L 95 Pulse Ox 11/22/20 07:01 11/22/20 07:00 11/22/20 06:39 93 L 11/22/20 06:03 11/22/20 06:00 11/22/20 05:01 11/22/20 05:00 11/22/20 04:59 11/22/20 04:33 11/22/20 04:32 11/22/20 04:30 11/22/20 04:29 11/22/20 04:01 11/22/20 04:00 11/22/20 03:00 11/22/20 02:01 11/22/20 02:00 11/22/20 01:01 11/22/20 01:00 11/22/20 00:01 11/22/20 00:00 11/21/20 23:01 11/21/20 23:00 11/21/20 22:59 11/21/20 22:30 11/21/20 22:29 11/21/20 22:00 11/21/20 21:30 11/21/20 21:29 11/21/20 21:01 11/21/20 21:00 11/21/20 20:59 11/21/20 20:30 11/21/20 20:29 11/21/20 20:23 11/21/20 20:01 11/21/20 20:00 11/21/20 19:59 11/21/20 19:30 11/21/20 19:29 - Problem List Review Problem List Initiated/Reviewed/Updated: No - My Orders Last 24 Hours: My Active Orders 11/21/20 07:00 EKG 12 Lead [EK] Routine 11/21/20 14:32 May Shower [RC] ASDIRECTED RT Incentive Spirometry [RC] Q1HWA Up ad Brie [RC] ASDIRECTED Urinary Catheter Removal [RC] 0600 Vital Signs [RC] Q1HR Docusate Sodium [Colace] 100 mg PO BID PRN DVT/VTE Prophylaxis Reflex [OM.PC] Routine Resuscitation Status Routine 11/21/20 14:35 Abdominal Binder [OM.PC] Per Unit Routine 11/21/20 14:37 Antiembolic Devices [RC] BID VTE/DVT Education [RC] BID 11/21/20 14:40 Albuterol [Proventil HFA] 0 gm INH DAILY PRN 11/21/20 14:48 Loratadine [Claritin] 10 mg PO DAILY PRN 11/21/20 15:41 Patient Status [ADT] Routine 11/21/20 16:30 Acetaminophen [TylenoL] 650 mg PO Q6H 11/21/20 Dinner Clear Liquid Diet [DIET] 11/21/20 21:00 Budesonide [Pulmicort] 0.25 mg NEB BEDTIME Clobetasol/Emollient [Temovate E 0.05% Crm] 1 dose TOP BID Metoprolol Tartrate [Lopressor] 50 mg PO BID Montelukast [Singulair] 10 mg PO BEDTIME Rosuvastatin [Crestor] 10 mg PO BEDTIME 11/21/20 22:00 Lactated Ringers [Ringers, Lactated] 1,000 ml IV ASDIRECTED 11/22/20 06:00 Pantoprazole [ProTONIX] 40 mg PO DAILY@0600 11/22/20 09:00 Enoxaparin [Lovenox] 40 mg SUBCUT DAILY Losartan [Cozaar] 100 mg PO DAILY Mometasone/Formoterol [Dulera 200-5 MCG] 2 puff IH BID Tiotropium [place] [Spiriva Respimat] 0 gm INH BID 11/22/20 16:00 Furosemide [Lasix] 40 mg PO 1600 11/22/20 21:00 NIFEdipine [Procardia XL] 30 mg PO BEDTIME 11/23/20 05:11 BASIC METABOLIC PANEL,BMP [CHEM] AM CBC WITH AUTO DIFF [HEME] AM MAGNESIUM [CHEM] AM PHOSPHORUS [CHEM] AM 11/24/20 05:11 BASIC METABOLIC PANEL,BMP [CHEM] AM CBC WITH AUTO DIFF [HEME] AM MAGNESIUM [CHEM] AM PHOSPHORUS [CHEM] AM 11/25/20 05:11 BASIC METABOLIC PANEL,BMP [CHEM] AM CBC WITH AUTO DIFF [HEME] AM MAGNESIUM [CHEM] AM PHOSPHORUS [CHEM] AM 11/26/20 05:11 BASIC METABOLIC PANEL,BMP [CHEM] AM CBC WITH AUTO DIFF [HEME] AM MAGNESIUM [CHEM] AM PHOSPHORUS [CHEM] AM - Assessment Assessment:: POD1, Right hemicolectomy. progressing well. - Plan Plan:: - We will discontinue Epidural today and do PRN Oxycodone, breakthrough Iv dilaudid and scheduled tylenol. Please hold Lovenox till epidural removed. - AMbulate today - will discontinue adam catheter today - Continue clears today if tolerating, will advance to regular food tonight - restart most home meds - IVF to 75 this AM - Incentive spirometer and Abd binder when out of bed.
--- NOTE | 2020-11-22 08:13 | PCM.SN.2 ---
- Free Text/Narrative Note: 0730 Epidural Assessment: [place] is feeling well this morning and is ready to start moving and get something to eat. Pain controlled. Dr. Ochoa has requested the epidural be discontinued at this time. Orders placed per Dr. Ochoa for continued pain management. Epidural catheter was discontinued with ease. Epidural tip intact. No bruising or bleeding at the site. [place] has no further questions or concerns at this time. Cornelius Soliman, [employer]
--- NOTE | 2020-11-22 08:13 | PCM48HPAN ---
Post Anesthesia Note - EVALUATION WITHIN 48HRS OF ANESTHETIC Vital Signs in Normal Range: Yes Patient Participated in Evaluation: Yes Respiratory Function Stable: Yes Airway Patent: Yes Cardiovascular Function Stable: Yes Hydration Status Stable: Yes Pain Control Satisfactory: Yes Nausea and Vomiting Control Satisfactory: Yes Mental Status Recovered: Yes Vital Signs: Last Vital Signs Temp 36.6 C 11/22/20 07:49 Pulse 85 11/22/20 07:00 Resp 20 11/22/20 07:30 BP 124/67 11/22/20 07:01 Pulse Ox 95 11/22/20 07:30
[2020-11-22] MEDS: Acetaminophen/HYDROcodone 325-5 MG Tab PO PRN ×4 (08:35→20:52)
[2020-11-22] MEDS: Losartan 100 MG Tab PO SCH (08:35)
[2020-11-22] MEDS: Metoprolol Tartrate 50 MG Tab PO SCH ×2 (08:36→20:51)
[2020-11-22] MEDS: Enoxaparin 40 MG/0.4 ML Syringe SUBCUT SCH ×2 (08:37→10:42)
[2020-11-22] MEDS: Formoterol/Mometasone 200-5 MCG 8.8 GM Inhaler IH SCH ×2 (09:12→20:06)
[2020-11-22] MEDS: Tiotropium Bromide 4 GM Inhalation Spray (2.5mcg/1 dose; 10 doses) INH SCH ×2 (09:12→09:16)
[2020-11-22] MEDS: Lactated Ringers 1,000 ML IV SCH (10:43)
[2020-11-22] MEDS ORDERED: Furosemide 40 MG Tab PO SCH (16:00)
[2020-11-22] MEDS: Budesonide 0.25 MG/2 ML Neb Susp NEB SCH (20:06)
[2020-11-22] MEDS: Rosuvastatin 10 MG Tab PO SCH (20:51)
[2020-11-22] MEDS: Montelukast 10 MG Tab PO SCH (20:51)
[2020-11-22] MEDS ORDERED: NIFEdipine 30 MG Tab.ER PO SCH (21:00)
[2020-11-22] MEDS ORDERED: UMECLIDINIUM INH SCH (21:00)
[2020-11-23] MEDS: Acetaminophen/HYDROcodone 325-5 MG Tab PO PRN ×2 (04:05→08:38)
[2020-11-23] MEDS: Pantoprazole 40 MG Tab.CR PO SCH (05:26)
[2020-11-23] MEDS: Acetaminophen 325 MG Tab PO SCH ×2 (05:26→11:39)
[2020-11-23] MEDS: Formoterol/Mometasone 200-5 MCG 8.8 GM Inhaler IH SCH (08:20)
[2020-11-23] MEDS: Enoxaparin 40 MG/0.4 ML Syringe SUBCUT SCH (08:38)
[2020-11-23] MEDS: Losartan 100 MG Tab PO SCH (08:38)
[2020-11-23] MEDS: Metoprolol Tartrate 50 MG Tab PO SCH (08:38)
--- NOTE | 2020-11-23 10:47 | PCM.PN ---
- General Info Date of Service: 11/23/20 Admission Dx/Problem (Free Text): Right colectomy Subjective Update: Off oxygen, ambulating, urinating, passing flatus and had a small BM today Functional Status: Reports: Pain Controlled, Tolerating Diet, Ambulating, Urinating - Review of Systems General: Reports: No Symptoms HEENT: Reports: No Symptoms Pulmonary: Reports: No Symptoms Cardiovascular: Reports: No Symptoms Gastrointestinal: Reports: Abdominal Pain (curtis-incisional) Genitourinary: Reports: No Symptoms Musculoskeletal: Reports: No Symptoms Skin: Reports: No Symptoms - Patient Data Vitals - Most Recent: Last Vital Signs Temp 97.3 F 11/23/20 08:00 Pulse 85 11/23/20 08:38 Resp 16 11/23/20 08:00 BP 142/85 H 11/23/20 08:38 Pulse Ox 94 L 11/23/20 08:34 Weight - Most Recent: 118.524 kg I&O - Last 24 Hours: Intake & Output 11/22/20 11/23/20 11/23/20 22:59 06:59 14:59 Intake Total 1870 600 Output Total 1800 400 Balance 70 200 Lab Results Last 24 Hours: Laboratory Results - last 24 hr 11/23/20 11/23/20 Range/Units 05:41 05:41 WBC 8.68 (4.23-9.07) K/mm3 RBC 4.10 L (4.63-6.08) M/mm3 Hgb 12.1 L (13.7-17.5) gm/dl Hct 38.5 L (40.1-51.0) % MCV 93.9 H (79.0-92.2) fl MCH 29.5 (25.7-32.2) pg MCHC 31.4 L (32.2-35.5) g/dl RDW Std Deviation 51.8 H (35.1-43.9) fL Plt Count 194 (163-337) K/mm3 MPV 9.6 (9.4-12.3) fl Neut % (Auto) 62.8 (34.0-67.9) % Lymph % (Auto) 18.8 L (21.8-53.1) % [place] % (Auto) 16.9 H (5.3-12.2) % Eos % (Auto) 0.5 L (0.8-7.0) Baso % (Auto) 0.8 (0.1-1.2) % Neut # (Auto) 5.45 H (1.78-5.38) K/mm3 Lymph # (Auto) 1.63 (1.32-3.57) K/mm3 [place] # (Auto) 1.47 H (0.30-0.82) K/mm3 Eos # (Auto) 0.04 (0.04-0.54) K/mm3 Baso # (Auto) 0.07 (0.01-0.08) K/mm3 Manual Slide Review Abnormal smear Sodium 141 (136-145) mEq/L Potassium 3.5 (3.5-5.1) mEq/L Chloride 104 (98-107) mEq/L Carbon Dioxide 27 (21-32) mEq/L Anion Gap 13.5 (5-15) BUN 13 (7-18) mg/dL Creatinine 0.9 (0.7-1.3) mg/dL Est Cr Clr Drug Dosing 77.06 mL/min Estimated GFR (MDRD) > 60 (>60) mL/min BUN/Creatinine Ratio 14.4 (14-18) Glucose 89 (80-115) mg/dL Calcium 8.6 (8.5-10.1) mg/dL Phosphorus 2.9 (2.6-4.7) mg/dL Magnesium 1.8 (1.8-2.4) mg/dl Med Orders - Current: Current Medications Acetaminophen (Tylenol) 650 mg PO Q6H [facility] Last Admin: 11/23/20 05:26 Dose: 650 mg Documented by: Hydrocodone Bitart/Acetaminophen ([place] 325-5 Mg) 2 tab PO Q4H PRN PRN Reason: Pain Last Admin: 11/23/20 08:38 Dose: 2 tab Documented by: Albuterol (Proventil Hfa) 0 gm INH DAILY PRN PRN Reason: Allergies Budesonide (Pulmicort) 0.25 mg NEB BEDTIME [facility] Last Admin: 11/22/20 20:06 Dose: 0.25 mg Documented by: Docusate Sodium (Colace) 100 mg PO BID PRN PRN Reason: Constipation Last Admin: 11/22/20 20:51 Dose: 100 mg Documented by: Enoxaparin Sodium (Lovenox) 40 mg SUBCUT DAILY [facility] Last Admin: 11/23/20 08:38 Dose: 40 mg Documented by: Fentanyl (Sublimaze) 50 mcg IVPUSH Q20M PRN PRN Reason: Pain Furosemide (Lasix) 40 mg PO 1600 [facility] Last Admin: 11/22/20 17:18 Dose: 40 mg Documented by: Hydromorphone HCl (Dilaudid) 0.5 mg IVPUSH Q2H PRN PRN Reason: Pain (severe 7-10) Last Admin: 11/22/20 05:40 Dose: 0.5 mg Documented by: Lactated Ringer's (Ringers, Lactated) 1,000 mls @ 75 mls/hr IV ASDIRECTED [facility] Loratadine (Claritin) 10 mg PO DAILY PRN PRN Reason: Allergies Losartan Potassium (Cozaar) 100 mg PO DAILY [facility] Last Admin: 11/23/20 08:38 Dose: 100 mg Documented by: Metoprolol Tartrate (Lopressor) 50 mg PO BID [facility] Last Admin: 11/23/20 08:38 Dose: 50 mg Documented by: Mometasone Furoate/Formoterol Fumar (Dulera 200-5 Mcg) 2 puff IH BID [facility] Last Admin: 11/23/20 08:20 Dose: 2 puff Documented by: Montelukast Sodium (Singulair) 10 mg PO BEDTIME [facility] Last Admin: 11/22/20 20:51 Dose: 10 mg Documented by: Nifedipine (Procardia Xl) 30 mg PO BEDTIME [facility] Last Admin: 11/22/20 20:51 Dose: 30 mg Documented by: Incruse Ellipta 62.5 (Mcg/Act Ptom) 0 each INH BEDTIME [facility] Last Admin: 11/22/20 20:06 Dose: 62.5 each Documented by: Pantoprazole Sodium (Protonix) 40 mg PO DAILY@0600 [facility] Last Admin: 11/23/20 05:26 Dose: 40 mg Documented by: Rosuvastatin Calcium (Crestor) 10 mg PO BEDTIME [facility] Last Admin: 11/22/20 20:51 Dose: 10 mg Documented by: Discontinued Medications Acetaminophen (Tylenol) 650 mg PO Q6H [facility] Last Admin: 11/21/20 16:43 Dose: Not Given Documented by: Hydrocodone Bitart/Acetaminophen ([place] 325-5 Mg) 2 tab PO Q4H PRN PRN Reason: Pain (moderate 4-6) Albuterol (Proventil Neb Soln) 2.5 mg NEB ONETIME ONE Stop: 11/21/20 08:12 Last Admin: 11/21/20 08:18 Dose: 2.5 mg Documented by: Budesonide (Pulmicort) 0.25 mg NEB QPM [facility] Bupivacaine HCl (Sensorcaine-Mpf 0.25%) 10 ml .ROUTE .STK-MED ONE Stop: 11/21/20 00:01 Bupivacaine HCl (Sensorcaine-Mpf 0.25%) 10 ml .ROUTE .STK-MED ONE Stop: 11/21/20 00:01 Bupivacaine HCl/Epinephrine Bitart ([place] 0.5%/Epinephrine 1:200,000) Confirm Administered Dose 50 ml .ROUTE .STK-MED ONE Stop: 11/21/20 08:01 Last Admin: 11/21/20 13:41 Dose: 40 ml Documented by: Dexamethasone (Dexamethasone) Confirm Administered Dose 20 mg .ROUTE .STK-MED ONE Stop: 11/21/20 11:07 Diphenhydramine HCl (Benadryl) 25 mg IVPUSH Q6H PRN PRN Reason: Pruritis Stop: 11/21/20 23:00 Ephedrine Sulfate (Ephedrine Sulfate) Confirm Administered Dose 50 mg .ROUTE .STK-MED ONE Stop: 11/21/20 09:20 Fentanyl (Sublimaze) Confirm Administered Dose 250 mcg .ROUTE .STK-MED ONE Stop: 11/21/20 07:07 Fentanyl (Sublimaze) 50 mcg IVPUSH Q5M PRN PRN Reason: Pain Stop: 11/21/20 23:00 Last Admin: 11/21/20 14:33 Dose: 50 mcg Documented by: Glycopyrrolate (Robinul) Confirm Administered Dose 0.8 mg .ROUTE .STK-MED ONE Stop: 11/21/20 13:21 Hydromorphone HCl (Dilaudid) 0.5 mg IVPUSH Q2H PRN PRN Reason: Pain (severe 7-10) Lactated Ringer's (Ringers, Lactated) 1,000 mls @ 125 mls/hr IV ASDIRECTED [facility] Stop: 11/21/20 23:00 Last Admin: 11/21/20 14:57 Dose: 125 mls/hr Documented by: Lidocaine HCl (Xylocaine-Mpf 1%) Confirm Administered Dose 4 mls @ as directed .ROUTE .STK-MED ONE Stop: 11/21/20 07:07 Ertapenem 1 gm/ Sodium (Chloride) 50 mls @ 100 mls/hr IV ONETIME ONE Stop: 11/21/20 09:29 Last Admin: 11/21/20 09:05 Dose: 100 mls/hr Documented by: Lactated Ringer's (Ringers, Lactated) Confirm Administered Dose 1,000 mls @ as directed .ROUTE .STK-MED ONE Stop: 11/21/20 08:59 Lactated Ringer's (Ringers, Lactated) Confirm Administered Dose 1,000 mls @ as directed .ROUTE .STK-MED ONE Stop: 11/21/20 10:53 Lactated Ringer's (Ringers, Lactated) 1,000 mls @ 125 mls/hr IV ASDIRECTED [facility] Last Admin: 11/22/20 10:43 Dose: 75 mls/hr Documented by: Lidocaine/Sodium Bicarbonate (Buffered Lidocaine 1% In Ns 8.4%) 0.25 ml IDERM ONETIME PRN PRN Reason: Prior to IV Start Stop: 11/21/20 18:00 Last Admin: 11/21/20 07:29 Dose: 0.25 ml Documented by: Meperidine HCl (Meperidine) 25 mg IVPUSH ONETIME PRN PRN Reason: Shivering Stop: 11/21/20 23:00 Midazolam HCl (Versed 1 Mg/Ml) Confirm Administered Dose 2 mg .ROUTE .STK-MED ONE Stop: 11/21/20 07:07 Midazolam HCl (Versed 1 Mg/Ml) Confirm Administered Dose 2 mg .ROUTE .STK-MED ONE Stop: 11/21/20 10:17 Miscellaneous Medication (Phenylephrine 1 Mg/10 Ml-Ns) Confirm Administered Dose 1 mg .ROUTE .STK-MED ONE Stop: 11/21/20 09:02 Morphine Sulfate (Duramorph Pf) Confirm Administered Dose 10 mg .ROUTE .STK-MED ONE Stop: 11/21/20 08:07 Neostigmine Methylsulfate (Neostigmine Methylsulfate) Confirm Administered Dose 5 mg .ROUTE .STK-MED ONE Stop: 11/21/20 13:21 Non-Formulary Medication (Clemastine [Tavist Allergy]) 2.68 mg PO ASDIRECTED PRN PRN Reason: Allergies Non-Formulary Medication (Clobetasol/Emollient [Temovate E 0.05% Crm]) 1 dose TOP BID [facility] Ondansetron HCl (Zofran) Confirm Administered Dose 4 mg .ROUTE .STK-MED ONE Stop: 11/21/20 07:07 Ondansetron HCl (Zofran) Confirm Administered Dose 4 mg .ROUTE .STK-MED ONE Stop: 11/21/20 09:22 Ondansetron HCl (Zofran) 4 mg IVPUSH ONETIME PRN PRN Reason: Nausea/Vomiting Stop: 11/21/20 23:00 Propofol (Diprivan 20 Ml) Confirm Administered Dose 200 mg .ROUTE .STK-MED ONE Stop: 11/21/20 07:07 Rocuronium [place] (Zemuron) Confirm Administered Dose 50 mg .ROUTE .STK-MED ONE Stop: 11/21/20 07:07 Rocuronium [place] (Zemuron) Confirm Administered Dose 50 mg .ROUTE .STK-MED ONE Stop: 11/21/20 09:17 Rocuronium [place] (Zemuron) Confirm Administered Dose 50 mg .ROUTE .STK-MED ONE Stop: 11/21/20 11:21 Sodium Chloride (Saline Flush) 10 ml FLUSH ASDIRECTED PRN PRN Reason: Keep Vein Open Stop: 11/21/20 18:00 Tiotropium [place] (Spiriva Respimat) 0 gm INH BID [facility] Last Admin: 11/22/20 09:16 Dose: Not Given Documented by: - Exam General: Alert, Oriented, Cooperative Lungs: Clear to Auscultation, Normal Respiratory Effort Cardiovascular: Regular Rate, Regular Rhythm GI/Abdominal Exam: Soft, No Organomegaly, No Distention, Tender (around he incisions) - Patient Data Lab Results Last 24 hrs: Laboratory Results - last 24 hr 11/23/20 11/23/20 Range/Units 05:41 05:41 WBC 8.68 (4.23-9.07) K/mm3 RBC 4.10 L (4.63-6.08) M/mm3 Hgb 12.1 L (13.7-17.5) gm/dl Hct 38.5 L (40.1-51.0) % MCV 93.9 H (79.0-92.2) fl MCH 29.5 (25.7-32.2) pg MCHC 31.4 L (32.2-35.5) g/dl RDW Std Deviation 51.8 H (35.1-43.9) fL Plt Count 194 (163-337) K/mm3 MPV 9.6 (9.4-12.3) fl Neut % (Auto) 62.8 (34.0-67.9) % Lymph % (Auto) 18.8 L (21.8-53.1) % [place] % (Auto) 16.9 H (5.3-12.2) % Eos % (Auto) 0.5 L (0.8-7.0) Baso % (Auto) 0.8 (0.1-1.2) % Neut # (Auto) 5.45 H (1.78-5.38) K/mm3 Lymph # (Auto) 1.63 (1.32-3.57) K/mm3 [place] # (Auto) 1.47 H (0.30-0.82) K/mm3 Eos # (Auto) 0.04 (0.04-0.54) K/mm3 Baso # (Auto) 0.07 (0.01-0.08) K/mm3 Manual Slide Review Abnormal smear Sodium 141 (136-145) mEq/L Potassium 3.5 (3.5-5.1) mEq/L Chloride 104 (98-107) mEq/L Carbon Dioxide 27 (21-32) mEq/L Anion Gap 13.5 (5-15) BUN 13 (7-18) mg/dL Creatinine 0.9 (0.7-1.3) mg/dL Est Cr Clr Drug Dosing 77.06 mL/min Estimated GFR (MDRD) > 60 (>60) mL/min BUN/Creatinine Ratio 14.4 (14-18) Glucose 89 (80-115) mg/dL Calcium 8.6 (8.5-10.1) mg/dL Phosphorus 2.9 (2.6-4.7) mg/dL Magnesium 1.8 (1.8-2.4) mg/dl Result Diagrams: 11/23/20 05:41 11/23/20 05:41 Sepsis Event Note - Evaluation Sepsis Screening Result: No Definite Risk - Focused Exam Vital Signs: Vital Signs Temp Pulse Resp BP BP Pulse Ox Pulse Ox 11/23/20 08:38 85 142/85 H 11/23/20 08:34 142/81 H 94 L 11/23/20 08:33 93 L 11/23/20 08:22 94 L 11/23/20 08:00 97.3 F 16 88 L 11/23/20 04:00 98 F 20 126/76 91 L 11/23/20 02:00 90 L 11/23/20 01:00 91 L 11/23/20 00:00 97.3 F 16 125/63 92 L 11/22/20 23:00 92 L - Problem List Review Problem List Initiated/Reviewed/Updated: No - My Orders Last 24 Hours: My Active Orders 11/22/20 16:00 Furosemide [Lasix] 40 mg PO 1600 11/22/20 Dinner Regular Diet [DIET] 11/22/20 17:08 Patient Status [ADT] Routine 11/22/20 21:00 NIFEdipine [Procardia XL] 30 mg PO BEDTIME Non-Formulary Medication [NF Drug] 0 each INH BEDTIME 11/23/20 10:29 Antiembolic Devices [RC] PER UNIT ROUTINE 11/24/20 05:11 BASIC METABOLIC PANEL,BMP [CHEM] AM CBC WITH AUTO DIFF [HEME] AM MAGNESIUM [CHEM] AM PHOSPHORUS [CHEM] AM 11/25/20 05:11 BASIC METABOLIC PANEL,BMP [CHEM] AM CBC WITH AUTO DIFF [HEME] AM MAGNESIUM [CHEM] AM PHOSPHORUS [CHEM] AM 11/26/20 05:11 BASIC METABOLIC PANEL,BMP [CHEM] AM CBC WITH AUTO DIFF [HEME] AM MAGNESIUM [CHEM] AM PHOSPHORUS [CHEM] AM - Assessment Assessment:: POD2, Right hemicolectomy. progressing well. - Plan Plan:: - He is tolerating reg diet - ambulating and urinating - off O2 and pain is controlled Dispo - will discharge to home today. Pt will follow up with me in 2 weeks.
--- NOTE | 2020-11-23 10:59 | PCM.DCSUM1 ---
Discharge Summary - Hospital Course Free Text/Narrative:: Patient had a large proximal ascending polyp that was unable to be removed by colonoscopy despite multiple attempts. Surgical resection was recommended. Patient had Laparoscopic right colectomy on 11/21. He progressed well post operatively. He was discharged to home on 11/23 in stable condition. He will follow up in clinic in 2 weeks. Diagnosis: Stroke: No - Discharge Data Discharge Date: 11/23/20 Discharge Disposition: Home, Self-Care 01 Condition: Good - Referral to Home Health Primary Care Physician: Hermila Cyr PA-C - Patient Instructions Diet: Heart Healthy Diet Activity: No Lifting Over 10 Pounds (for 6 weeks) Driving: Do Not Drive (until not taking opioid pain medications) Showering/Bathing: May Shower Wound/Incision Care: Keep Operative Site/Wound Site Clean and Dry Notify Provider of: Fever, Increased Pain, Swelling and Redness, Nausea and/or Vomiting Other/Special Instructions: - Continue to walk frequently at home. - Continue to use incentive spirometer at home. - Continue to take stool softeners - Colace and Miralax unless stools are loose or you have diarrhea. - Discharge Plan *PRESCRIPTION DRUG MONITORING PROGRAM REVIEWED*: No *COPY OF PRESCRIPTION DRUG MONITORING REPORT IN PATIENT [place]: No Prescriptions/Med Rec: Acetaminophen/HYDROcodone [[place] 325-5 MG] 1 tab PO Q6H PRN 5 Days #20 tablet PRN Reason: Pain (Severe 7-10) Home Medications: Home Meds Albuterol Sulfate [Albuterol Sulfate Hfa] 2 puff INH DAILY PRN 03/24/19 [History] Fluticasone/Vilanterol [Breo Ellipta 200-25 MCG Inhalation Kit] 1 puff INH DAILY 03/24/19 [History] Furosemide 40 mg PO 1600 03/24/19 [History] Losartan [Cozaar] 100 mg PO DAILY 03/24/19 [History] Metoprolol Tartrate 50 mg PO BID 03/24/19 [History] Montelukast [Singulair] 10 mg PO BEDTIME 03/24/19 [History] NIFEdipine [Nifedipine ER] 30 mg PO BEDTIME 03/24/19 [History] Rosuvastatin [Crestor] 10 mg PO BEDTIME 03/24/19 [History] allopurinoL [Zyloprim] 300 mg PO DAILY 03/24/19 [History] Docusate Sodium [Colace] 100 mg PO DAILY #30 cap 05/29/20 [Rx] Pantoprazole [ProTONIX] 40 mg PO DAILY #30 tab.cr 05/29/20 [Rx] polyethylene glycoL 3350 [Miralax] 17 gm PO BEDTIME #30 powd.pack 05/29/20 [Rx] Acetaminophen [Tylenol] 500 mg PO Q6H PRN 09/09/20 [History] Budesonide [Pulmicort] 1 dose NEB QPM 09/09/20 [History] Cetirizine HCl [Zyrtec] 10 mg PO DAILY PRN 09/09/20 [History] Clemastine [Tavist Allergy] 1.34 mg PO BID PRN 09/09/20 [History] Clobetasol/Emollient [Temovate E 0.05% Crm] 1 dose TOP BID 09/09/20 [History] Mepolizumab [Nucala] 1 dose SQ Q30D 09/09/20 [History] traMADol [Ultram] 50 mg PO QID PRN 09/09/20 [History] Umeclidinium [place] [Incruse Ellipta] 1 puff INH BEDTIME 09/12/20 [History] Meloxicam [Mobic] 15 mg PO DAILY 11/21/20 [History] Omeprazole 20 mg PO DAILY PRN 11/21/20 [History] Acetaminophen/HYDROcodone [[place] 325-5 MG] 1 tab PO Q6H PRN 5 Days #20 tablet 11/23/20 [Rx] Oxygen Therapy Mode: Room Air Referrals: Hermila Cyr PA-C [Primary Care Provider] - Marcela Ochoa MD [Physician] - (2 weeks) - Discharge Summary/Plan Comment DC Time >30 min.: Yes - General Info Date of Service: 11/23/20 Admission Dx/Problem (Free Text: Right colectomy Subjective Update: Off oxygen, ambulating, urinating, passing flatus and had a small BM today Functional Status: Reports: Pain Controlled, Tolerating Diet, Ambulating, Urinating - Review of Systems General: Reports: No Symptoms HEENT: Reports: No Symptoms Pulmonary: Reports: No Symptoms Cardiovascular: Reports: No Symptoms Gastrointestinal: Reports: Abdominal Pain (around the incisions) Genitourinary: Reports: No Symptoms Musculoskeletal: Reports: No Symptoms Skin: Reports: No Symptoms Neurological: Reports: No Symptoms Psychiatric: Reports: No Symptoms - Patient Data Vitals - Most Recent: Last Vital Signs Temp 97.3 F 11/23/20 08:00 Pulse 85 11/23/20 08:38 Resp 16 11/23/20 08:00 BP 142/85 H 11/23/20 08:38 Pulse Ox 94 L 11/23/20 08:34 Weight - Most Recent: 118.524 kg I&O - Last 24 hours: Intake & Output 11/22/20 11/23/20 11/23/20 22:59 06:59 14:59 Intake Total 1870 600 Output Total 1800 400 Balance 70 200 Lab Results - Last 24 hrs: Laboratory Results - last 24 hr 11/23/20 11/23/20 Range/Units 05:41 05:41 WBC 8.68 (4.23-9.07) K/mm3 RBC 4.10 L (4.63-6.08) M/mm3 Hgb 12.1 L (13.7-17.5) gm/dl Hct 38.5 L (40.1-51.0) % MCV 93.9 H (79.0-92.2) fl MCH 29.5 (25.7-32.2) pg MCHC 31.4 L (32.2-35.5) g/dl RDW Std Deviation 51.8 H (35.1-43.9) fL Plt Count 194 (163-337) K/mm3 MPV 9.6 (9.4-12.3) fl Neut % (Auto) 62.8 (34.0-67.9) % Lymph % (Auto) 18.8 L (21.8-53.1) % [place] % (Auto) 16.9 H (5.3-12.2) % Eos % (Auto) 0.5 L (0.8-7.0) Baso % (Auto) 0.8 (0.1-1.2) % Neut # (Auto) 5.45 H (1.78-5.38) K/mm3 Lymph # (Auto) 1.63 (1.32-3.57) K/mm3 [place] # (Auto) 1.47 H (0.30-0.82) K/mm3 Eos # (Auto) 0.04 (0.04-0.54) K/mm3 Baso # (Auto) 0.07 (0.01-0.08) K/mm3 Manual Slide Review Abnormal smear Sodium 141 (136-145) mEq/L Potassium 3.5 (3.5-5.1) mEq/L Chloride 104 (98-107) mEq/L Carbon Dioxide 27 (21-32) mEq/L Anion Gap 13.5 (5-15) BUN 13 (7-18) mg/dL Creatinine 0.9 (0.7-1.3) mg/dL Est Cr Clr Drug Dosing 77.06 mL/min Estimated GFR (MDRD) > 60 (>60) mL/min BUN/Creatinine Ratio 14.4 (14-18) Glucose 89 (80-115) mg/dL Calcium 8.6 (8.5-10.1) mg/dL Phosphorus 2.9 (2.6-4.7) mg/dL Magnesium 1.8 (1.8-2.4) mg/dl Med Orders - Current: Current Medications Acetaminophen (Tylenol) 650 mg PO Q6H [facility] Last Admin: 11/23/20 05:26 Dose: 650 mg Documented by: Hydrocodone Bitart/Acetaminophen ([place] 325-5 Mg) 2 tab PO Q4H PRN PRN Reason: Pain Last Admin: 11/23/20 08:38 Dose: 2 tab Documented by: Albuterol (Proventil Hfa) 0 gm INH DAILY PRN PRN Reason: Allergies Budesonide (Pulmicort) 0.25 mg NEB BEDTIME [facility] Last Admin: 11/22/20 20:06 Dose: 0.25 mg Documented by: Docusate Sodium (Colace) 100 mg PO BID PRN PRN Reason: Constipation Last Admin: 11/22/20 20:51 Dose: 100 mg Documented by: Enoxaparin Sodium (Lovenox) 40 mg SUBCUT DAILY [facility] Last Admin: 11/23/20 08:38 Dose: 40 mg Documented by: Fentanyl (Sublimaze) 50 mcg IVPUSH Q20M PRN PRN Reason: Pain Furosemide (Lasix) 40 mg PO 1600 [facility] Last Admin: 11/22/20 17:18 Dose: 40 mg Documented by: Hydromorphone HCl (Dilaudid) 0.5 mg IVPUSH Q2H PRN PRN Reason: Pain (severe 7-10) Last Admin: 11/22/20 05:40 Dose: 0.5 mg Documented by: Lactated Ringer's (Ringers, Lactated) 1,000 mls @ 75 mls/hr IV ASDIRECTED [facility] Loratadine (Claritin) 10 mg PO DAILY PRN PRN Reason: Allergies Losartan Potassium (Cozaar) 100 mg PO DAILY [facility] Last Admin: 11/23/20 08:38 Dose: 100 mg Documented by: Metoprolol Tartrate (Lopressor) 50 mg PO BID [facility] Last Admin: 11/23/20 08:38 Dose: 50 mg Documented by: Mometasone Furoate/Formoterol Fumar (Dulera 200-5 Mcg) 2 puff IH BID [facility] Last Admin: 11/23/20 08:20 Dose: 2 puff Documented by: Montelukast Sodium (Singulair) 10 mg PO BEDTIME [facility] Last Admin: 11/22/20 20:51 Dose: 10 mg Documented by: Nifedipine (Procardia Xl) 30 mg PO BEDTIME [facility] Last Admin: 11/22/20 20:51 Dose: 30 mg Documented by: Incruse Ellipta 62.5 (Mcg/Act Ptom) 0 each INH BEDTIME [facility] Last Admin: 11/22/20 20:06 Dose: 62.5 each Documented by: Pantoprazole Sodium (Protonix) 40 mg PO DAILY@0600 [facility] Last Admin: 11/23/20 05:26 Dose: 40 mg Documented by: Rosuvastatin Calcium (Crestor) 10 mg PO BEDTIME [facility] Last Admin: 11/22/20 20:51 Dose: 10 mg Documented by: Discontinued Medications Acetaminophen (Tylenol) 650 mg PO Q6H [facility] Last Admin: 11/21/20 16:43 Dose: Not Given Documented by: Hydrocodone Bitart/Acetaminophen ([place] 325-5 Mg) 2 tab PO Q4H PRN PRN Reason: Pain (moderate 4-6) Albuterol (Proventil Neb Soln) 2.5 mg NEB ONETIME ONE Stop: 11/21/20 08:12 Last Admin: 11/21/20 08:18 Dose: 2.5 mg Documented by: Budesonide (Pulmicort) 0.25 mg NEB QPM [facility] Bupivacaine HCl (Sensorcaine-Mpf 0.25%) 10 ml .ROUTE .STK-MED ONE Stop: 11/21/20 00:01 Bupivacaine HCl (Sensorcaine-Mpf 0.25%) 10 ml .ROUTE .STK-MED ONE Stop: 11/21/20 00:01 Bupivacaine HCl/Epinephrine Bitart ([place] 0.5%/Epinephrine 1:200,000) Confirm Administered Dose 50 ml .ROUTE .STK-MED ONE Stop: 11/21/20 08:01 Last Admin: 11/21/20 13:41 Dose: 40 ml Documented by: Dexamethasone (Dexamethasone) Confirm Administered Dose 20 mg .ROUTE .STK-MED ONE Stop: 11/21/20 11:07 Diphenhydramine HCl (Benadryl) 25 mg IVPUSH Q6H PRN PRN Reason: Pruritis Stop: 11/21/20 23:00 Ephedrine Sulfate (Ephedrine Sulfate) Confirm Administered Dose 50 mg .ROUTE .ST-MED ONE Stop: 11/21/20 09:20 Fentanyl (Sublimaze) Confirm Administered Dose 250 mcg .ROUTE .STK-MED ONE Stop: 11/21/20 07:07 Fentanyl (Sublimaze) 50 mcg IVPUSH Q5M PRN PRN Reason: Pain Stop: 11/21/20 23:00 Last Admin: 11/21/20 14:33 Dose: 50 mcg Documented by: Glycopyrrolate (Robinul) Confirm Administered Dose 0.8 mg .ROUTE .STK-MED ONE Stop: 11/21/20 13:21 Hydromorphone HCl (Dilaudid) 0.5 mg IVPUSH Q2H PRN PRN Reason: Pain (severe 7-10) Lactated Ringer's (Ringers, Lactated) 1,000 mls @ 125 mls/hr IV ASDIRECTED LIZETT Stop: 11/21/20 23:00 Last Admin: 11/21/20 14:57 Dose: 125 mls/hr Documented by: Lidocaine HCl (Xylocaine-Mpf 1%) Confirm Administered Dose 4 mls @ as directed .ROUTE .STK-MED ONE Stop: 11/21/20 07:07 Ertapenem 1 gm/ Sodium (Chloride) 50 mls @ 100 mls/hr IV ONETIME ONE Stop: 11/21/20 09:29 Last Admin: 11/21/20 09:05 Dose: 100 mls/hr Documented by: Lactated Ringer's (Ringers, Lactated) Confirm Administered Dose 1,000 mls @ as directed .ROUTE .STK-MED ONE Stop: 11/21/20 08:59 Lactated Ringer's (Ringers, Lactated) Confirm Administered Dose 1,000 mls @ as directed .ROUTE .STK-MED ONE Stop: 11/21/20 10:53 Lactated Ringer's (Ringers, Lactated) 1,000 mls @ 125 mls/hr IV ASDIRECTED LIZETT Last Admin: 11/22/20 10:43 Dose: 75 mls/hr Documented by: Lidocaine/Sodium Bicarbonate (Buffered Lidocaine 1% In Ns 8.4%) 0.25 ml IDERM ONETIME PRN PRN Reason: Prior to IV Start Stop: 11/21/20 18:00 Last Admin: 11/21/20 07:29 Dose: 0.25 ml Documented by: Meperidine HCl (Meperidine) 25 mg IVPUSH ONETIME PRN PRN Reason: Shivering Stop: 11/21/20 23:00 Midazolam HCl (Versed 1 Mg/Ml) Confirm Administered Dose 2 mg .ROUTE .STK-MED ONE Stop: 11/21/20 07:07 Midazolam HCl (Versed 1 Mg/Ml) Confirm Administered Dose 2 mg .ROUTE .STK-MED ONE Stop: 11/21/20 10:17 Miscellaneous Medication (Phenylephrine 1 Mg/10 Ml-Ns) Confirm Administered Dose 1 mg .ROUTE .STK-MED ONE Stop: 11/21/20 09:02 Morphine Sulfate (Duramorph Pf) Confirm Administered Dose 10 mg .ROUTE .STK-MED ONE Stop: 11/21/20 08:07 Neostigmine Methylsulfate (Neostigmine Methylsulfate) Confirm Administered Dose 5 mg .ROUTE .STK-MED ONE Stop: 11/21/20 13:21 Non-Formulary Medication (Clemastine [Tavist Allergy]) 2.68 mg PO ASDIRECTED PRN PRN Reason: Allergies Non-Formulary Medication (Clobetasol/Emollient [Temovate E 0.05% Crm]) 1 dose TOP BID LIZETT Ondansetron HCl (Zofran) Confirm Administered Dose 4 mg .ROUTE .STK-MED ONE Stop: 11/21/20 07:07 Ondansetron HCl (Zofran) Confirm Administered Dose 4 mg .ROUTE .STK-MED ONE Stop: 11/21/20 09:22 Ondansetron HCl (Zofran) 4 mg IVPUSH ONETIME PRN PRN Reason: Nausea/Vomiting Stop: 11/21/20 23:00 Propofol (Diprivan 20 Ml) Confirm Administered Dose 200 mg .ROUTE .STK-MED ONE Stop: 11/21/20 07:07 Rocuronium [place] (Zemuron) Confirm Administered Dose 50 mg .ROUTE .STK-MED ONE Stop: 11/21/20 07:07 Rocuronium [place] (Zemuron) Confirm Administered Dose 50 mg .ROUTE .STK-MED ONE Stop: 11/21/20 09:17 Rocuronium [place] (Zemuron) Confirm Administered Dose 50 mg .ROUTE .STK-MED ONE Stop: 11/21/20 11:21 Sodium Chloride (Saline Flush) 10 ml FLUSH ASDIRECTED PRN PRN Reason: Keep Vein Open Stop: 11/21/20 18:00 Tiotropium [place] (Spiriva Respimat) 0 gm INH BID LIZETT Last Admin: 11/22/20 09:16 Dose: Not Given Documented by: - Exam General: Reports: Alert, Oriented, Cooperative Lungs: Reports: Clear to Auscultation, Normal Respiratory Effort Cardiovascular: Reports: Regular Rate, Regular Rhythm, No Murmurs GI/Abdominal Exam: Soft, No Organomegaly, No Distention, Tender (arouind the incisions)
== END 2020-11-23 11:32 | disposition home or self-care (01) | DRG 331 ==
LOC: JD.MS 06:58 → JD.ICU 14:32
PROVIDERS: ADMIT Surgery; ATTEND Surgery
PROC: 0DTF4ZZ Resection of Right Large Intestine, Percutaneous Endoscopic Approach (ICD-10-PCS; principal; 2020-11-21)
PROC: 3E0R33Z Introduction of Anti-inflammatory into Spinal Canal, Percutaneous Approach (ICD-10-PCS; 2020-11-21)
PROC: 00HU33Z Insertion of Infusion Device into Spinal Canal, Percutaneous Approach (ICD-10-PCS; 2020-11-21)
DX: D12.2 Benign neoplasm of ascending colon (principal); J45.909 Unspecified asthma, uncomplicated; I10 Essential (primary) hypertension; G47.33 Obstructive sleep apnea (adult) (pediatric); K57.90 Diverticulosis of intestine, part unspecified, without perforation or abscess without bleeding; E78.5 Hyperlipidemia, unspecified; G47.30 Sleep apnea, unspecified; Z20.822 Contact with and (suspected) exposure to COVID-19; Z96.653 Presence of artificial knee joint, bilateral; Z98.890 Other specified postprocedural states; Z79.899 Other long term (current) drug therapy; Z88.2 Allergy status to sulfonamides; Z86.16 Personal history of COVID-19; Z85.46 Personal history of malignant neoplasm of prostate; Z88.1 Allergy status to other antibiotic agents; Z88.8 Allergy status to other drugs, medicaments and biological substances
CPT/HCPCS: 00790; 36415; 62320; 80048; 80053; 83735; 84100; 85025; 88307; 93005; 94640; A9270-GY; J1100; J1170; J1335; J1650; J2250; J2270; J2370; J2405; J2704; J2710; J3010; J3490; J7120; U0002

== ENCOUNTER 2023-03-06 08:58 | Day surgery (SDC) | payer MEDICARE, BC ==
[~2023-03-06 08:58] MED LIST changes: -Bupivacaine 0.25% 10 ML SDV ONE; +Lactated Ringers 1,000 ML IV SCH; -Lidocaine 1%/Sod Bicarbonate in NS 8.4% 1 ML Syringe IDERM PRN; -Sodium Chloride 0.9% 10 ML Syringe FLUSH PRN
[2023-03-06] MEDS ORDERED: Propofol 200 MG/20 ML SDV ONE ×2 (10:26→11:46)
[2023-03-06] MEDS ORDERED: Lidocaine 1% 4 ML ONE (10:26)
[2023-03-06] MEDS ORDERED: Midazolam 1 MG/ML 2 ML SDV ONE (10:27)
[2023-03-06] MEDS ORDERED: Sodium Chloride 0.9% 10 ML Syringe FLUSH PRN (11:17)
[2023-03-06] MEDS ORDERED: Bupivacaine 0.5% 30 ML SDV ONE (11:27)
[2023-03-06] MEDS ORDERED: Sodium Chloride 0.9% 10 ML Syringe FLUSH SCH (11:30)
== END 2023-03-06 13:02 | disposition home or self-care (01) ==
LOC: JD.SDS 08:58
PROVIDERS: ATTEND Surgery
DX: D12.3 Benign neoplasm of transverse colon (principal); K62.1 Rectal polyp; K63.5 Polyp of colon; K29.80 Duodenitis without bleeding; K29.50 Unspecified chronic gastritis without bleeding; K64.4 Residual hemorrhoidal skin tags; K52.89 Other specified noninfective gastroenteritis and colitis; K64.8 Other hemorrhoids; D64.9 Anemia, unspecified; G47.33 Obstructive sleep apnea (adult) (pediatric); E78.5 Hyperlipidemia, unspecified; I10 Essential (primary) hypertension; R53.83 Other fatigue; E78.00 Pure hypercholesterolemia, unspecified; E66.9 Obesity, unspecified; K21.9 Gastro-esophageal reflux disease without esophagitis; M10.9 Gout, unspecified; M19.90 Unspecified osteoarthritis, unspecified site; K92.1 Melena; Z79.899 Other long term (current) drug therapy; Z88.2 Allergy status to sulfonamides; Z88.1 Allergy status to other antibiotic agents; Z88.8 Allergy status to other drugs, medicaments and biological substances; Z87.19 Personal history of other diseases of the digestive system; Z68.43 Body mass index [BMI] 50.0-59.9, adult
CPT/HCPCS: 43239; 45398; J2250; J2704; J3490; J7120

== ENCOUNTER 2024-03-11 18:11 | Inpatient (IN) | payer MEDICARE, BC ==
[2024-03-11] MEDS: Sodium Chloride 0.9% 10 ML Syringe FLUSH PRN (19:18)
[2024-03-11] MEDS: Sodium Chloride 0.9% 1,000 ML IV STA ×2 (19:19→19:50)
[2024-03-11 20:02] LABS: BASOPHILS ABSOLUTE AUTO 0.1 K/mm3 (0.0-0.2); BASOPHILS PERCENT AUTO 0.8 % (0.0-1.0); EOSINOPHILS ABSOLUTE AUTO 0.1 K/mm3 (0.0-0.4); EOSINOPHILS PERCENT AUTO 0.7 % (0.0-6.0); HEMOGLOBIN 12.3 gm/dl (14.0-18.0); IMMATURE GRAN ABSOLUTE AUTO 0.04 K/mm3 (0.00-0.05); IMMATURE GRAN PERCENT AUTO 0.4 % (0.0-0.4); LYMPHOCYTES ABSOLUTE AUTO 2.1 K/mm3 (1.0-4.8); LYMPHOCYTES PERCENT AUTO 18.8 % (24.0-44.0); MEAN CORPUSCULAR HEMOGLOBIN 29.6 pg (28.0-32.0); MEAN CORPUSCULAR HGB CONC 33.2 g/dl (32.0-36.0); MEAN CORPUSCULAR VOLUME 89.2 fl (83.0-99.0); MEAN PLATELET VOLUME 9.4 fl (9.4-12.4); MONOCYTES ABSOLUTE AUTO 1.3 K/mm3 (0.0-0.8); MONOCYTES PERCENT AUTO 11.8 % (0.0-8.0); NEUTROPHILS ABSOLUTE AUTO 7.7 K/mm3 (1.8-7.7); NEUTROPHILS PERCENT AUTO 67.5 % (41.0-71.0); PLATELET COUNT,PLT 230 K/mm3 (150-400); RED BLOOD CELL COUNT 4.15 M/mm3 (4.52-5.90); WHITE BLOOD CELL COUNT,WBC 11.33 K/mm3 (3.9-11.3)
[2024-03-11] MEDS: Tranexamic Acid 1,000 MG/10 ML Vial IV ONE (20:07)
[2024-03-11 20:26] LABS: A/G RATIO 1.1 (1-2); ALBUMIN 3.6 g/dl (3.4-5.0); ANION GAP 15.7 (5-15); BILIRUBIN TOTAL 0.3 mg/dL (0.2-1.0); BUN/CREATININE RATIO 16.7 (14-18); CALCIUM 8.9 mg/dL (8.5-10.1); CREATININE 0.9 mg/dL (0.7-1.3); EST CRCL DRUG DOSING (CG) 70.38 mL/min; POTASSIUM,K 3.7 mEq/L (3.5-5.1); PROTEIN TOTAL,TP 6.9 g/dl (6.4-8.2)
[2024-03-11] MEDS: Iopamidol 755 Mg/ML 100 ML Bottle IVPUSH ONE (20:40)
[2024-03-11] MEDS ORDERED: Sodium Chloride 0.9% 100 ML IV SCH (20:45)
[2024-03-11] MEDS ORDERED: fentaNYL 100 MCG/2 ML SDV ONE (21:27)
[2024-03-11] MEDS ORDERED: Propofol 200 MG/20 ML SDV ONE ×2 (21:27→21:54)
[2024-03-11] MEDS ORDERED: HYDROmorphone 0.5 MG/0.5 ML Syringe IVPUSH PRN (21:35)
[2024-03-11] MEDS ORDERED: fentaNYL 100 MCG/2 ML SDV IVPUSH PRN (21:35)
[2024-03-11] MEDS ORDERED: Ondansetron 4 MG/2 ML SDV IVPUSH PRN (21:35)
[2024-03-11] MEDS ORDERED: Lactated Ringers 1,000 ML IV ONE (21:45)
[2024-03-11] MEDS ORDERED: EPINEPHrine 1 MG/ML SDV ONE (21:48)
[2024-03-11] MEDS ORDERED: HYDROCORTISONE PE APP RECTAL PRN (22:03)
[2024-03-11] MEDS ORDERED: AUTO INJCT SQ SCH (22:15)
[2024-03-11] MEDS ORDERED: MEPOLIZUMAB 100 MG/ML SQ SCH (22:15)
[2024-03-11] MEDS ORDERED: Albuterol/Ipratropium 3.0-0.5 MG/3 ML Neb Soln NEB PRN (22:16)
[2024-03-12 05:54] LABS: BASOPHILS ABSOLUTE AUTO 0.1 K/mm3 (0.0-0.2); BASOPHILS PERCENT AUTO 0.9 % (0.0-1.0); EOSINOPHILS PERCENT AUTO 0.6 % (0.0-6.0); HEMATOCRIT 31.9 % (42.0-52.0); HEMOGLOBIN 10.5 gm/dl (14.0-18.0); IMMATURE GRAN ABSOLUTE AUTO 0.03 K/mm3 (0.00-0.05); IMMATURE GRAN PERCENT AUTO 0.5 % (0.0-0.4); LYMPHOCYTES ABSOLUTE AUTO 1.9 K/mm3 (1.0-4.8); LYMPHOCYTES PERCENT AUTO 28.9 % (24.0-44.0); MEAN CORPUSCULAR HEMOGLOBIN 29.4 pg (28.0-32.0); MEAN CORPUSCULAR HGB CONC 32.9 g/dl (32.0-36.0); MEAN CORPUSCULAR VOLUME 89.4 fl (83.0-99.0); MEAN PLATELET VOLUME 9.9 fl (9.4-12.4); MONOCYTES ABSOLUTE AUTO 0.8 K/mm3 (0.0-0.8); MONOCYTES PERCENT AUTO 12.6 % (0.0-8.0); NEUTROPHILS ABSOLUTE AUTO 3.7 K/mm3 (1.8-7.7); NEUTROPHILS PERCENT AUTO 56.5 % (41.0-71.0); PLATELET COUNT,PLT 189 K/mm3 (150-400); RED BLOOD CELL COUNT 3.57 M/mm3 (4.52-5.90); WHITE BLOOD CELL COUNT,WBC 6.53 K/mm3 (3.9-11.3)
[2024-03-12 06:14] LABS: ANION GAP 12.5 (5-15); BUN/CREATININE RATIO 18.8 (14-18); CALCIUM 8.6 mg/dL (8.5-10.1); CREATININE 0.8 mg/dL (0.7-1.3); EST CRCL DRUG DOSING (CG) 79.18 mL/min; POTASSIUM,K 3.5 mEq/L (3.5-5.1)
[2024-03-12] MEDS: Pantoprazole 40 MG Vial IVPUSH SCH (10:01)
[2024-03-12] MEDS: [UNRECOGNIZED DRUG - OTHER] TOP SCH (10:06)
[2024-03-12] MEDS: Pantoprazole 40 MG in Sodium Chloride 0.9% 100 ML IV SCH (10:06)
[2024-03-12] MEDS: CLOBETASOL TOP SCH (10:06)
[2024-03-12] MEDS: EMOLLIENT TOP SCH (10:06)
[2024-03-12 12:58] LABS: HEMATOCRIT 34.2 % (42.0-52.0); HEMOGLOBIN 11.2 gm/dl (14.0-18.0)
[2024-03-12] MEDS: Allopurinol 300 MG Tab PO SCH (13:27)
[2024-03-12] MEDS: Furosemide 40 MG Tab PO SCH (15:04)
[2024-03-12] MEDS: Polyethylene Glycol/Electrolytes 4,000 ML Bottle PO ONE (16:16)
[2024-03-12] MEDS: D5 1/2 NS w/ 20 mEq/L KCl 1,000 ML IV SCH (17:02)
[2024-03-12 18:43] LABS: HEMATOCRIT 34.5 % (42.0-52.0); HEMOGLOBIN 11.6 gm/dl (14.0-18.0)
[2024-03-12] MEDS: Rosuvastatin 10 MG Tab PO SCH (21:03)
[2024-03-12] MEDS: Montelukast 10 MG Tab PO SCH (21:04)
[2024-03-12] MEDS: Metoprolol Tartrate 50 MG Tab PO SCH (21:04)
[2024-03-13 00:33] LABS: HEMATOCRIT 31.9 % (42.0-52.0); HEMOGLOBIN 10.5 gm/dl (14.0-18.0)
[2024-03-13 06:40] LABS: BASOPHILS ABSOLUTE AUTO 0.1 K/mm3 (0.0-0.2); BASOPHILS PERCENT AUTO 1.1 % (0.0-1.0); EOSINOPHILS ABSOLUTE AUTO 0.1 K/mm3 (0.0-0.4); EOSINOPHILS PERCENT AUTO 1.1 % (0.0-6.0); HEMATOCRIT 30.1 % (42.0-52.0); IMMATURE GRAN ABSOLUTE AUTO 0.02 K/mm3 (0.00-0.05); IMMATURE GRAN PERCENT AUTO 0.4 % (0.0-0.4); LYMPHOCYTES ABSOLUTE AUTO 1.6 K/mm3 (1.0-4.8); LYMPHOCYTES PERCENT AUTO 33.6 % (24.0-44.0); MEAN CORPUSCULAR HEMOGLOBIN 29.5 pg (28.0-32.0); MEAN CORPUSCULAR HGB CONC 33.2 g/dl (32.0-36.0); MEAN CORPUSCULAR VOLUME 88.8 fl (83.0-99.0); MONOCYTES ABSOLUTE AUTO 0.7 K/mm3 (0.0-0.8); MONOCYTES PERCENT AUTO 15.3 % (0.0-8.0); NEUTROPHILS ABSOLUTE AUTO 2.3 K/mm3 (1.8-7.7); NEUTROPHILS PERCENT AUTO 48.5 % (41.0-71.0); PLATELET COUNT,PLT 177 K/mm3 (150-400); RED BLOOD CELL COUNT 3.39 M/mm3 (4.52-5.90); WHITE BLOOD CELL COUNT,WBC 4.76 K/mm3 (3.9-11.3)
[2024-03-13 07:10] LABS: ANION GAP 13.3 (5-15); BUN/CREATININE RATIO 13.8 (14-18); CALCIUM 8.6 mg/dL (8.5-10.1); CREATININE 0.8 mg/dL (0.7-1.3); EST CRCL DRUG DOSING (CG) 79.18 mL/min; MAGNESIUM 1.8 mg/dL (1.8-2.4); POTASSIUM,K 3.3 mEq/L (3.5-5.1)
[2024-03-13] MEDS: Potassium Chloride 10 MEQ in Premix Bag 1 BAG IV SCH (08:44)
[2024-03-13] MEDS: NIFEdipine 30 MG Tab.ER PO SCH (12:00)
[2024-03-13] MEDS ORDERED: Propofol 200 MG/20 ML SDV ONE ×2 (12:42→13:28)
[2024-03-13] MEDS ORDERED: Lactated Ringers 1,000 ML IV ONE (12:45)
[2024-03-13] MEDS ORDERED: ePHEDrine 50 MG/ML SDV ONE (13:28)
== END 2024-03-13 18:45 | disposition home or self-care (01) | DRG 393 ==
LOC: JD.ED 18:11 → JD.SDS 21:23 → JD.MS 21:55
PROVIDERS: ADMIT Student in an Organized Health Care Education/Training Program; ATTEND Student in an Organized Health Care Education/Training Program
PROC: 0DB78ZX Excision of Stomach, Pylorus, Via Natural or Artificial Opening Endoscopic, Diagnostic (ICD-10-PCS; 2024-03-11)
PROC: 30233K1 Transfusion of Nonautologous Frozen Plasma into Peripheral Vein, Percutaneous Approach (ICD-10-PCS; 2024-03-11)
PROC: 0DBB8ZX Excision of Ileum, Via Natural or Artificial Opening Endoscopic, Diagnostic (ICD-10-PCS; principal; 2024-03-13 13:00)
DX: K92.2 Gastrointestinal hemorrhage, unspecified (principal); I95.9 Hypotension, unspecified; K64.8 Other hemorrhoids; K25.0 Acute gastric ulcer with hemorrhage; E66.9 Obesity, unspecified; Z68.42 Body mass index [BMI] 45.0-49.9, adult; K57.31 Diverticulosis of large intestine without perforation or abscess with bleeding; K29.81 Duodenitis with bleeding; D62 Acute posthemorrhagic anemia; Z79.899 Other long term (current) drug therapy; Z68.41 Body mass index [BMI] 40.0-44.9, adult; K52.9 Noninfective gastroenteritis and colitis, unspecified; I10 Essential (primary) hypertension; G47.33 Obstructive sleep apnea (adult) (pediatric); E78.00 Pure hypercholesterolemia, unspecified; M19.90 Unspecified osteoarthritis, unspecified site; E66.01 Morbid (severe) obesity due to excess calories; I95.89 Other hypotension; K62.1 Rectal polyp; M1A.9XX0 Chronic gout, unspecified, without tophus (tophi); E78.5 Hyperlipidemia, unspecified; J45.20 Mild intermittent asthma, uncomplicated; Z88.2 Allergy status to sulfonamides; Z88.1 Allergy status to other antibiotic agents; Z88.8 Allergy status to other drugs, medicaments and biological substances; Z97.3 Presence of spectacles and contact lenses; Z85.46 Personal history of malignant neoplasm of prostate; Z86.010 Personal history of colon polyps; Z86.16 Personal history of COVID-19; Z98.890 Other specified postprocedural states; Z96.659 Presence of unspecified artificial knee joint
CPT/HCPCS: 36415; 80053; 83690; 85025; 93005; 96361; 96374; 99285; J0171; J2704; J3010; J3490; J7030 ×2; J7120; P9017; 00731; 00811; 36430; 80048; 83735; 85014; 85018; 86850; 86900; 86901; 86922; 87641; 88305; 93010; 97110-GP; 97161-GP; 99100; 99211; A9270-GY; C9113; J3480

== ENCOUNTER 2024-05-29 14:56 | Emergency (ER) | payer MEDICARE, BC | END 2024-05-29 18:05 | disposition home or self-care (01) | LOC: JD.ED 14:56 | DX: S83.92XA Sprain of unspecified site of left knee, initial encounter (principal); I10 Essential (primary) hypertension; E78.00 Pure hypercholesterolemia, unspecified; J45.909 Unspecified asthma, uncomplicated; K21.9 Gastro-esophageal reflux disease without esophagitis; E66.9 Obesity, unspecified; Z86.16 Personal history of COVID-19; Z79.899 Other long term (current) drug therapy; Z79.2 Long term (current) use of antibiotics; Z88.1 Allergy status to other antibiotic agents; Z88.2 Allergy status to sulfonamides; Z88.8 Allergy status to other drugs, medicaments and biological substances; Z68.41 Body mass index [BMI] 40.0-44.9, adult | CPT/HCPCS: 73564-26-LT; 73564-LT; 93971-26-LT; 93971-LT; 99283; 99284 ==

== ENCOUNTER 2024-07-22 07:15 | Day surgery (SDC) | payer MEDICARE, BC ==
[~2024-07-22 07:15] MED LIST changes: -Lactated Ringers 1,000 ML IV SCH; +Sodium Chloride 0.9% 10 ML Syringe FLUSH PRN; +Sodium Chloride 0.9% 10 ML Syringe FLUSH SCH
[2024-07-22] MEDS ORDERED: Bupivacaine 0.5% 30 ML SDV ONE (07:51)
[2024-07-22] MEDS: Lactated Ringers 1,000 ML IV SCH (08:00)
[2024-07-22] MEDS ORDERED: Propofol 200 MG/20 ML SDV ONE ×4 (08:01)
[2024-07-22] MEDS ORDERED: Lidocaine 2% 5 ML SDV ONE (08:02)
== END 2024-07-22 09:50 | disposition home or self-care (01) ==
LOC: JD.SDS 07:15
PROVIDERS: ATTEND Surgery
DX: D12.3 Benign neoplasm of transverse colon (principal); K63.5 Polyp of colon; K62.1 Rectal polyp; K52.9 Noninfective gastroenteritis and colitis, unspecified; K29.50 Unspecified chronic gastritis without bleeding; K64.8 Other hemorrhoids; K57.30 Diverticulosis of large intestine without perforation or abscess without bleeding; I10 Essential (primary) hypertension; E78.5 Hyperlipidemia, unspecified; J45.50 Severe persistent asthma, uncomplicated; Z79.899 Other long term (current) drug therapy; Z88.2 Allergy status to sulfonamides; Z88.8 Allergy status to other drugs, medicaments and biological substances
CPT/HCPCS: 43239; 45380; J0665; J2704; J7120; 00813; 99100; J3490